=== PATIENT | female | born 1950 | race Caucasian/White ===

== ENCOUNTER 2017-08-27 11:04 | Outpatient (CLI) | payer MEDICARE, BC ==
--- NOTE | 2017-08-27 15:46 | CT ---
CT ANGIO ABDOMEN AND PELVIS AND BILATERAL LOWER EXTREMITIES: Date: 08/27/17 Multiple axial tomograms obtained through abdomen and pelvis and lower extremities in arterial phase enhancement with multiplanar reconstruction and 3D postprocessing. HISTORY: Peripheral arterial disease. Atherosclerosis of arteries with gangrene. Nonhealing wound left foot. FINDINGS: Abdominal aorta shows atherosclerotic calcification. No evidence of aneurysmal dilatation. No dissect ion. Calcified plaque at the origin of the celiac artery results in hemodynamically significant stenosis o f greater than 50% diameter as noted on the sagittal imaging. Atherosclerotic calcification at the origin of the superior mesenteric artery is also seen. There is mild soft plaque proximally which does appear to result in moderate stenosis approaching 50% diameter . Main superior mesenteric artery trunk is patent. Aortic bifurcation is patent. There appear to be bilateral common iliac artery stents at the bifurcat ion which are patent. Right lower extremity: There is evidence of arterial stents in place involving the right internal and external iliacs. Both of these arteries are patent with no significant stenosis. Right common femoral and profunda femoral are patent. The right superficial femoral artery is patent with atherosclerotic calcification seen. No significant stenosis. There is trifurcation below the knee joint. Peroneal appears to occlude just above the ankle. Otherwi se, the anterior tibial and posterior tibial arteries are patent to the foot. I cannot confirm patenc y of the dorsal pedis. Left lower extremity: There are left internal and external artery stents in place. Extensive stent to the common femoral on the left. There is evidence of high grade stenosis and near occlusion at the proximal left common fe moral artery. The profunda femoral is patent. The superficial femoral on the left is patent with diffuse disease. M ild stenosis in the mid thigh. The left popliteal is patent. Left popliteal trifurcates below the knee. Peroneal occludes mid calf. Anterior tibial artery and pos terior tibial artery are patent to the foot. Dorsal pedis is patent proximally. Soft Tissues: Lung bases appear clear. Liver, spleen, and pancreas are unremarkable. Bowel loops unremarkable. Right kidney is absent. Left kidney is atrophic with minimal cortex and numerous small left renal cys tic lesions. Urinary bladder is not identified. There is history of ileostomy and hysterectomy. An anterior abdominal wall defect on the right is seen. This may be the site of a prior ostomy. There are numerous small bowel loops herniated through this defect into the subuctaneous tissues. There is a second anterior abdominal wall hernia to the left of midline in the lower abdomen. This ap pears to represent a functioning ostomy. There is diffuse radiopaque mesh-like material involving the anterior abdominal wall indicating prior abdominal wall repair. Numerous small bowel loops herniate into the subcutaneous tissues indicating a parastomal hernia. No evidence of obstruction or dilated small bowel loops. IMPRESSION: 1. Evidence of moderate stenosis in the proximal superior mesenteric artery. 2. Bilateral common iliac artery stents are patent. 3. High grade stenosis in the proximal left femoral artery which appears to be within a stent. There is near occlusion at this site. 4. Bilateral anterior abdominal wall hernias with ostomies as discussed above. POS: RENEA
== END 2017-08-27 11:05 | disposition home or self-care (01) ==
LOC: CT 11:04
PROVIDERS: ATTEND Thoracic Surgery (Cardiothoracic Vascular Surgery)
DX: I70.262 Atherosclerosis of native arteries of extremities with gangrene, left leg (principal); R01.2 Other cardiac sounds; K55.1 Chronic vascular disorders of intestine; K43.9 Ventral hernia without obstruction or gangrene; I36.1 Nonrheumatic tricuspid (valve) insufficiency; I34.0 Nonrheumatic mitral (valve) insufficiency; Z98.890 Other specified postprocedural states
CPT/HCPCS: 75635; 93306

== ENCOUNTER 2017-09-11 09:19 | Outpatient (CLI) | payer MEDICARE, BC | END 2017-09-11 09:20 | disposition home or self-care (01) | LOC: LABBT 09:19 | PROVIDERS: ATTEND Thoracic Surgery (Cardiothoracic Vascular Surgery) | DX: Z01.812 Encounter for preprocedural laboratory examination (principal); I70.262 Atherosclerosis of native arteries of extremities with gangrene, left leg | CPT/HCPCS: 36430; 80048; 85027; 86850; 86900; 86901; 93005; 93010 ==

== ENCOUNTER 2017-09-11 09:30 | Inpatient (IN) | payer MEDICARE, BC ==
[2017-09-11 09:43] VITALS: BMI 31.8
[2017-09-11 10:37] LABS: Hemoglobin 8.5 g/dL (12.0-16.0); Mean Corpuscular HGB CONC 31.8 g/dL (32.0-36.0); Mean Corpuscular Hemoglobin 31.6 pg (27.0-31.0); Mean Corpuscular Volume 99.4 fl (81.0-99.0); Mean Platelet Volume 6.4 fL (7.4-10.4); Platelet Count 310 thou/uL (130-400); RBC Distribution Width 12.7 % (11.5-14.5); Red Blood Cell (RBC) Count 2.68 mill/uL (4.20-5.40); White Blood Cell (WBC) Count 9.8 thou/uL (4.8-10.8)
[2017-09-11 10:57] LABS: Anion Gap 20 mmol/L (10-20); BUN (Urea Nitrogen) 29 mg/dL (9.8-20.1); Calc. Creatinine Clearance 0 mL/min (70-130); Calcium 8.6 mg/dL (7.8-10.44); Carbon Dioxide 32 mmol/L (23-31); Chloride 91 mmol/L (98-107); Estimated GFR-MDRD 8; Glucose 108 mg/dL (80-115); Potassium 3.5 mmol/L (3.5-5.1); Sodium 139 mmol/L (136-145)
[2017-09-12] MEDS ORDERED: Heparin 5,000 UNITS/ML VIAL ONE (06:36)
[2017-09-12] MEDS ORDERED: Protamine Sulfate 50 MG/5 ML VIAL ONE (06:36)
[2017-09-12] MEDS ORDERED: Fentanyl 250 MCG/5 ML VIAL ONE (07:25)
[2017-09-12] MEDS ORDERED: CEFAZOLIN/Water 2 GM/20 ML SYRINGE ONE (07:30)
[2017-09-12] MEDS ORDERED: Ondansetron HCl/PF 4 MG/2 ML Vial IVP PRN (09:28)
[2017-09-12] MEDS ORDERED: Promethazine HCl 25 MG/ML VIAL SLOW IVP PRN (09:28)
[2017-09-12] MEDS ORDERED: Promethazine HCl 25 MG/ML VIAL IM PRN (09:28)
--- NOTE | 2017-09-12 11:15 | OP ---
PREOPERATIVE DIAGNOSIS: Gangrene, left foot. POSTOPERATIVE DIAGNOSIS: Gangrene, left foot, secondary to severe peripheral artery disease. FINDINGS: The patient had complete occlusion of her proximal left common femoral artery and about 80 % stenosis of her left external iliac artery, more proximally just past the hypogastric artery takeof f. She had a relatively intact runoff distally with 3-vessel runoff. PROCEDURE: Open left common superficial profunda femoral exposure with angiography and ballooning le ft common femoral artery and left external iliac artery with a 6 mm balloon. CONTRAST: 36 mL FLUOROSCOPY: Four minutes and 48 seconds. PROCEDURE IN DETAIL: After adequate anesthesia had been obtained, the patient was prepped and draped after ultrasound had determined the location of the left common femoral artery. After exposing the common femoral artery was heavily calcified; however, superficial and profunda vessels were soft. Pa lpation of the vessels revealed no pulse. Dissection up under the inguinal ligament proximal to the circumflex humeral branches demonstrated heavily calcified vessel extending as far as the finger coul d reach and there was no site for clamping or occluding the vessel. A needle and wire were inserted into the superficial femoral artery and a 5-Burkinan dilator placed and sheath placed with the sheath b minesh entering the distal common femoral artery. Angiography demonstrated patent superficial and pro arnold and distal common femoral artery with occlusion of the common femoral artery proximally. A guille dewire was then manipulated and unable to cross through the stenosis, and the dilator and sheath were advanced into the iliac system. Repeat angiography demonstrated there was now some flow through the common femoral artery where the dilator and sheath have passed as well as delineating the external i liac artery stenosis more proximally. A 6-Burkinan marker sheath was then placed following which a 4 m m x 2 cm balloon was then inflated for 1 minute in the common femoral artery and the external iliac a rtery separately. There was much improved flow at this point, and a 6 x4 balloon was then used to in flate the common femoral artery extending into the proximal external iliac artery. This appeared to be a good size balloon. It was then removed and a 6 mm x 2 cm balloon was used to inflate the math and science instructor al iliac artery stenosis more proximally. Completion angiography showed much improved results in the common femoral with less than 20% stenosis. There was still some residual contrast dropout in the e xternal iliac artery, but it was much improved. Runoff of the leg was then obtained demonstrating a patent superficial femoral artery, popliteal artery, and proximal 3-vessel tibial runoff. Following this, a 6-0 Prolene suture was used to close the puncture site in the superficial femoral artery. Th ere were good pulsations in this vessel at that time. The wound was irrigated and closed in layers.
--- NOTE | 2017-09-12 12:35 | EKG ---
Test Reason : PREOP Blood Pressure : / mmHG Vent. Rate : 079 BPM Atrial Rate : 079 BPM P-R Int : 148 ms QRS Dur : 084 ms QT Int : 380 ms P-R-T Axes : 071 -05 066 degrees QTc Int : 435 ms Normal sinus rhythm Minimal voltage criteria for LVH, may be normal variant Borderline ECG When compared with ECG of 26-JAN-2010 10:38, No significant change was found Confirmed by DR. Nicole JACKSON ([id number]) on 09/12/2017 12:34:47 PM Referred By: CALI Confirmed By:DR. Nicole JACKSON
[2017-09-12] MEDS ORDERED: Ondansetron PF 4 MG/2 ML Vial IVP PRN (12:46)
[2017-09-12] MEDS ORDERED: hydrALAZINE 20 MG/ML VIAL SLOW IVP PRN (12:46)
[2017-09-12] MEDS ORDERED: HYDROcodone/Acetaminophen 5/325 mg Tablet PO PRN (12:46)
[2017-09-12] MEDS ORDERED: Clopidogrel Bisulfate 75 MG TAB PO SCH (13:00)
[2017-09-12] MEDS: Fentanyl 100 MCG/2 ML VIAL SLOW IVP PRN ×4 (13:15→23:13)
[2017-09-12] MEDS: HYDROcodone/Acetaminophen 5/325 mg Tablet PO PRN ×3 (13:55→22:06)
[2017-09-12] MEDS ORDERED: ePHEDrine/0.9% NaCl/PF SYRINGE 50 mg/10 ml ONE (15:49)
[2017-09-12] MEDS ORDERED: PROPOFOL 200 MG/20 ML VIAL ONE (15:49)
[2017-09-12] MEDS ORDERED: Heparin 10,000 UNITS/ 10 ML VIAL ONE (15:49)
[2017-09-12] MEDS ORDERED: Glycopyrrolate 0.2 MG/ML 5 ML SYRINGE ONE (15:49)
[2017-09-12] MEDS ORDERED: PHENYLEPHRINE-NS 100 MCG/ML 10 ML SYRINGE ONE (15:49)
[2017-09-12] MEDS: Ibuprofen 200 MG TAB PO PRN (17:49)
[2017-09-12 19:27] LABS: Anion Gap 21 mmol/L (10-20); BUN (Urea Nitrogen) 46 mg/dL (9.8-20.1); Calc. Creatinine Clearance 9 mL/min (70-130); Calcium 9.4 mg/dL (7.8-10.44); Carbon Dioxide 26 mmol/L (23-31); Chloride 90 mmol/L (98-107); Estimated GFR-MDRD 5; Glucose 98 mg/dL (80-115); Potassium 3.8 mmol/L (3.5-5.1); Sodium 133 mmol/L (136-145)
[2017-09-12] MEDS: Simvastatin 20 MG TAB PO SCH ×2 (19:46→20:44)
--- NOTE | 2017-09-12 23:53 | CON ---
DATE OF ENCOUNTER: 09/12/2017 REFERRING PHYSICIAN: Dr. Houston Mancini. CHIEF COMPLAINT: Vulvar necrotic wound. HISTORY OF PRESENT ILLNESS: Patient is a 67-year-old female who was admitted today after a scheduled vascular procedure for an obstructed or stenosed left common femoral artery and heavily calcified il iac vessels. During the procedure, patient was noted to have a necrotic right labial wound and OB/GY N was consulted for assistance in management. Patient has a history of recurrent cervical cancer fol lowed by a pelvic exenteration with an ileal conduit and end colostomy. Past medical history is also complicated by end-stage renal disease on dialysis and peripheral vascular disease. Patient reports that she is not very ambulatory and resides sitting much of the time. She does report she has some pain in her pelvic area, but does not know how long she has had the sore. PAST MEDICAL HISTORY: End-stage renal disease, ischemic left foot, hypothyroidism. Patient is on di alysis on Tuesdays, , and Saturdays. PAST SURGICAL HISTORY: Hysterectomy in 1987, kidney removed in 2001, pelvic exenteration for recurre nt cervical cancer with an end colostomy and ileal conduit. SOCIAL HISTORY: Patient denies tobacco, drug, or alcohol use. ALLERGIES: SULFA DRUGS. REVIEW OF SYSTEMS: Patient reports she was having quite a bit of pain in her left leg after the proc edure. Patient denies shortness of breath at rest. Denies chest pain. Denies abdominal pain. PHYSICAL EXAMINATION: VITAL SIGNS: Temperature 98.3, pulse of 82, respiratory rate of 16, satting 100% on 2 liters oxygen. GENERAL: She appears uncomfortable and in some distress from the pain in her leg. She is alert and oriented, and cooperative and pleasant to interact with, her right labia is denuded with the mid port ion necrotic, difficult to evaluate due to the patient's position and uncomfortable state. LABORATORY DATA: Patient had a BMP with calcium today showing a sodium of 133, potassium of 3.8, glu cose of 98, calcium 9.4. Her BUN is 46 and creatinine is 7.5. ASSESSMENT AND PLAN: Patient is a 67-year-old female with a history of recurrent cervical cancer, st atus post pelvic exenteration and radiation. She had ileal conduit and colostomy. She now has signi ficant peripheral vascular disease and underwent procedure today with Dr. Mancini to improve flow in th e left common femoral artery system. This necrotic wound needs to be debrided and will be taking the patient to the OR for conscious sedation and debridement and appears to be superficial on exam. Angela wadsworth has been involved today for evaluation and will remain in the primary project engineering manager for this wound. While in the OR, we will be sampling the tissue for pathology review. I suspect this is a complica tion due to her history of radiation and her vascular disease.
[2017-09-13] MEDS: HYDROcodone/Acetaminophen 5/325 mg Tablet PO PRN ×3 (03:10→20:50)
[2017-09-13] MEDS: Fentanyl 100 MCG/2 ML VIAL SLOW IVP PRN ×5 (06:50→19:43)
[2017-09-13] MEDS ORDERED: Clopidogrel Bisulfate 75 MG TAB PO SCH (09:00)
[2017-09-13] MEDS ORDERED: Fentanyl 100 MCG/2 ML VIAL ONE (10:00)
[2017-09-13] MEDS ORDERED: Bupivacaine 0.25% HCL 30 ML VIAL ONE (10:22)
[2017-09-13 10:41] LABS: #Eosinphils 0.2 thou/uL (0.0-0.7); #Lymphocytes 1.3 thou/uL (1.20-3.40); #Monocytes 0.7 thou/uL (0.11-0.59); #Neutrophils 11.3 thou/uL (1.40-6.50); %Basophils 0.1 % (0.0-1.0); %Eosinophils 1.7 % (0.0-10.0); %Lymphocytes 9.5 % (21.0-51.0); %Monocytes 4.8 % (0.0-10.0); %Neutrophils 83.8 % (42.0-75.0); Hemoglobin 6.7 g/dL (12.0-16.0); Mean Corpuscular HGB CONC 32.4 g/dL (32.0-36.0); Mean Corpuscular Hemoglobin 33.1 pg (27.0-31.0); Mean Platelet Volume 6.1 fL (7.4-10.4); Platelet Count 288 thou/uL (130-400); RBC Distribution Width 12.9 % (11.5-14.5); Red Blood Cell (RBC) Count 2.02 mill/uL (4.20-5.40); White Blood Cell (WBC) Count 13.5 thou/uL (4.8-10.8)
--- NOTE | 2017-09-13 10:50 | PRG ---
DATE OF SERVICE: 09/13/2017 SUBJECTIVE: The patient's pain control is much better than last night. She remembers discussing varinder Phan the proposed procedure of debridements of necrotic labia yesterday. OBJECTIVE: VITAL SIGNS: Temperature 98.1, pulse 76, respiratory rate 16, blood pressure 120/50. GENERAL: Nontoxic appearing elderly female, in no acute distress. RESPIRATIONS: Unlabored. LABORATORY AND STUDIES: The only lab this admission is a basic metabolic panel, which shows a mild h yponatremia with sodium of 133, chloride slightly low at 90, BUN 46, creatinine 7.48. CBC will be or dered. ASSESSMENT AND PLAN: A 67-year-old female who is status post a pelvic exenteration for cervical canc er approximately 30 years ago, presented for a stenosed left come femoral artery and at that time was noted to having a necrotic right labia. After the patient left the operating room, CEO & FOUNDER was consu lted. Dr. Phan saw the patient and did an initial consultation, but was unable to do an exam due to the patient's level of pain. Exam was deferred to exam under anesthesia today and with debridemen t as indicated followed by wound care. Risks, benefits, and alternative of the procedure were review ed with the patient and question answered to her and her daughter with satisfaction. We will plan fo r exam under anesthesia and debridement of right labia as indicated with wound care to follow. The p atient received Ancef 2 grams and call to the OR.
[2017-09-13 10:56] LABS: Hemoglobin A1c 5.3 % (4.0-6.0)
[2017-09-13] MEDS ORDERED: Promethazine HCl 25 MG/ML VIAL SLOW IVP PRN (11:13)
[2017-09-13] MEDS ORDERED: Ondansetron HCl/PF 4 MG/2 ML Vial IVP PRN (11:13)
[2017-09-13] MEDS ORDERED: Promethazine HCl 25 MG/ML VIAL IM PRN (11:13)
[2017-09-13] MEDS ORDERED: Morphine Sulfate 2 MG/ML SYRINGE SLOW IVP PRN (11:13)
[2017-09-13] MEDS ORDERED: PROPOFOL 200 MG/20 ML VIAL ONE (13:22)
[2017-09-13] MEDS ORDERED: Ondansetron PF 4 MG/2 ML Vial ONE (13:22)
[2017-09-13] MEDS ORDERED: PHENYLEPHRINE-NS 100 MCG/ML 10 ML SYRINGE ONE (13:22)
[2017-09-13] MEDS ORDERED: Lidocaine 1% PF 5 ML VIAL ONE (13:22)
[2017-09-13] MEDS ORDERED: Epoetin (ESRD) 10,000 UNITS/ML VIAL IVP SCH (15:43)
[2017-09-13] MEDS: Simvastatin 20 MG TAB PO SCH (19:44)
--- NOTE | 2017-09-13 22:22 | CON ---
DATE OF CONSULTATION: 09/13/2017 SERVICE: Renal Medicine. HISTORY OF PRESENT ILLNESS: Ms. Castro is a 67-year-old white female with known history of ESRD se condary to chronic interstitial nephritis, on maintenance hemodialysis and initially admitted due to leg pain and nonhealing left foot ulceration. The patient recently underwent an open left common sup erficial profunda femoral exposure with angiography and ballooning of the left common femoral artery and left external iliac artery. The patient was also seen by Dr. Phan due to a vulvar necrotic wound. His recommendation is debri diane of this necrotic wound. We are being consulted for her maintenance hemodialysis. She is [facility] for [facility]. We are doing hemodialysis for 3 hours without any heparin. REVIEW OF SYSTEMS: Positive for chronic left foot pain. No nausea, no vomiting, no abdominal pain. Appetite and energy level is fair. No diarrhea, no constipation, no productive cough, no fever or c hills, no syncopal episode, no abdominal pain. MEDICATIONS: Bergen 5/325 q.4 hours p.r.n., DuoNeb q.6 hours p.r.n., Plavix 75 mg once a day, aspirin 81 mg tab once a day, hydralazine 10 mg IV q.4 hours p.r.n., fentanyl IV as needed, ibuprofen 400 mg q.6 hours p.r.n., Zocor 20 mg tab at bedtime. PAST MEDICAL HISTORY: 1. ESRD secondary to chronic interstitial nephritis. 2. Hyperlipidemia. 3. History of cervical/ovarian cancer - in remission. 4. COPD. PAST SURGICAL HISTORY: Status post right nephrectomy for obstructed uropathy, status post radiation of her cervical cancer, status post hysterectomy, status post pelvic exenteration of her ovarian canc er, status post colostomy placement, status post bladder resection with ileal conduit and recently st atus post leg surgery with angioplasty of the femoral artery. SOCIAL HISTORY: The patient lives in [place]. She is and lives with her child. No history o f smoking or alcohol intake. Status post blood transfusion. No IV drug abuse. Used to work as a cu stomer service with [employer] Education: High school. FAMILY HISTORY: No family history of ESRD. ALLERGIES: SULFA. TRAUMA: None. IMMUNIZATIONS: Up to date. HOSPITALIZATIONS: Please see past medical history. PHYSICAL EXAMINATION: VITAL SIGNS: Blood pressure is 134/62, heart rate 95, respiratory rate 18, temperature 98.4, pulse o x 95%. GENERAL: Awake, alert, supine, obese, not in distress. SKIN: Adequate turgor. HEENT: Slightly pale conjunctivae, anicteric sclerae. NECK: No neck mass, no carotid bruits, no JVD. CHEST: No deformities. LUNGS: Clear breath sounds. HEART: Normal sinus rhythm. No murmur, no gallops, no rubs. ABDOMEN: Globular, soft, nontender, no masses. EXTREMITIES: No edema, no deformities. Positive for left foot dressing. NEUROLOGIC: Awake, oriented in 3 spheres. Moving all extremities. No tremors or asterixis. LABORATORY DATA: Laboratories of 09/13/2017, white count 13.5, hemoglobin 6.7, sodium 133, potassium 3.8, chloride 90, carbon dioxide 26, BUN is 46, creatinine is 7.48, calcium 9.4. ASSESSMENT AND PLAN: 1. Anemia - start Epogen 10,000 units subcu q. week. In addition, we will give 2 units of packed RB C with dialysis. 2. End-stage renal disease. Continuing Sunday, and Sunday hemodialysis regimen. No hep stevie use due to the recent surgery. 3. Peripheral vascular disease. The patient recently underwent a left common superficial profunda f emoral exposure with angiography and angioplasty of the left common femoral artery as well as the lef t external iliac artery surgery is following. I agree with current management.
[2017-09-14] MEDS: HYDROcodone/Acetaminophen 5/325 mg Tablet PO PRN ×2 (06:44→17:12)
[2017-09-14 10:02] LABS: #Eosinphils 0.1 thou/uL (0.0-0.7); #Lymphocytes 1.6 thou/uL (1.20-3.40); #Neutrophils 14.3 thou/uL (1.40-6.50); %Basophils 0.1 % (0.0-1.0); %Eosinophils 0.8 % (0.0-10.0); %Lymphocytes 9.5 % (21.0-51.0); %Neutrophils 83.6 % (42.0-75.0); Hemoglobin 8.8 g/dL (12.0-16.0); Mean Corpuscular HGB CONC 32.2 g/dL (32.0-36.0); Mean Corpuscular Hemoglobin 31.4 pg (27.0-31.0); Mean Corpuscular Volume 97.5 fl (81.0-99.0); Mean Platelet Volume 6.4 fL (7.4-10.4); Platelet Count 262 thou/uL (130-400); RBC Distribution Width 15.7 % (11.5-14.5); Red Blood Cell (RBC) Count 2.81 mill/uL (4.20-5.40); White Blood Cell (WBC) Count 17.2 thou/uL (4.8-10.8)
[2017-09-14] MEDS: Fentanyl 100 MCG/2 ML VIAL SLOW IVP PRN ×2 (10:19→16:42)
[2017-09-14] MEDS ORDERED: Fentanyl 100 MCG/2 ML VIAL ONE ×4 (12:39→15:34)
[2017-09-14] MEDS ORDERED: Midazolam HCl 2 mg/2 ml Vial ONE (12:39)
[2017-09-14] MEDS ORDERED: Ondansetron HCl/PF 4 MG/2 ML Vial IVP PRN (14:18)
[2017-09-14] MEDS ORDERED: Promethazine HCl 25 MG/ML VIAL SLOW IVP PRN (14:18)
[2017-09-14] MEDS ORDERED: HYDROmorphone 2 MG/ML VIAL SLOW IVP PRN (14:18)
[2017-09-14] MEDS ORDERED: Promethazine HCl 25 MG/ML VIAL IM PRN ×2 (14:18→17:31)
--- NOTE | 2017-09-14 15:10 | OP ---
PREOPERATIVE DIAGNOSIS: Gangrene, left foot. POSTOPERATIVE DIAGNOSIS: Gangrene, left foot. PROCEDURE: Left [id number] amputation. SURGEON: Houston Mancini M.D. ANESTHESIA: General. ESTIMATED BLOOD LOSS: Less than 200. PROCEDURE IN DETAIL: After prepping and draping, skin was marked for a posterior flap. Incision was made then circumferentially following the skin marker lines. Tibia was divided with Gigli saw and t he fibula was divided with the rib rico. Amputation knife was used to complete the amputation. He mostasis was then obtained using silk ligatures on heavily calcified tibial arteries which were paten t. Following irrigation, Vicryl sutures were used to secure the muscle flaps over the tibia and then subcutaneous tissue and skin were closed. The patient is to be taken to the recovery room in guarde d condition.
[2017-09-14] MEDS ORDERED: Lidocaine 1% PF 5 ML VIAL ONE (16:44)
[2017-09-14] MEDS ORDERED: Glycopyrrolate 0.2 MG/ML 5 ML SYRINGE ONE (16:44)
[2017-09-14] MEDS ORDERED: PROPOFOL 200 MG/20 ML VIAL ONE (16:44)
[2017-09-14] MEDS ORDERED: PHENYLEPHRINE-NS 100 MCG/ML 10 ML SYRINGE ONE (16:44)
[2017-09-14] MEDS ORDERED: Succinylcholine Chloride 20 MG/ML 10 ml SYRINGE FS ONE (16:44)
[2017-09-14] MEDS ORDERED: diphenhydrAMINE 25 MG CAP PO PRN (17:31)
[2017-09-14] MEDS ORDERED: Zolpidem Tartrate 5 MG TAB PO PRN (17:31)
[2017-09-14] MEDS ORDERED: Ondansetron PF 4 MG/2 ML Vial IVP PRN (17:31)
[2017-09-14] MEDS ORDERED: diphenhydrAMINE 50 MG/ML VIAL IVP PRN (17:31)
[2017-09-14] MEDS ORDERED: Fentanyl 5000 MCG/250 ML CADD IVPB PRN (17:31)
[2017-09-14] MEDS ORDERED: diphenhydrAMINE 50 MG/ML VIAL IM PRN (17:31)
[2017-09-14] MEDS ORDERED: Naloxone HCl 0.4 mg/ml Vial IV PRN (17:31)
[2017-09-14] MEDS ORDERED: Communication Order-Pharmacy FS SCH (17:45)
[2017-09-14] MEDS: fentaNYL Citrate/PF 2,000 MCG in Sodium Chloride 0.9% 60 ML IV PRN (18:33)
[2017-09-14] MEDS: Simvastatin 20 MG TAB PO SCH (22:19)
[2017-09-14] MEDS: Heparin 5,000 UNITS/ML VIAL SC SCH (22:19)
--- NOTE | 2017-09-15 00:51 | OP ---
DATE OF SERVICE: 09/13/2017 PREOPERATIVE DIAGNOSES: Necrotic left labia. POSTOPERATIVE DIAGNOSES: Necrotic left labia. ANESTHESIA: General. ATTENDING: Dr. Zenia Boswell PROCEDURE: Local excision of necrotic tissue. FINDINGS: Approximately 3 cm area of necrosis and induration of the left labia with a wider area inv olving some sloughing and induration of the labia. ESTIMATED BLOOD LOSS: 25 mL IV FLUIDS: Replacement. URINE OUTPUT: Not measured. MEDICATIONS: Ancef at the start of case. DRAINS: None. COUNTS: Correct. COMPLICATIONS: None immediate. DISPOSITION: Stable to PACU. DETAILED OPERATIVE NOTE: Risks, benefits, and alternatives of the procedure were reviewed with the tate pollard and her daughter and questions were answered to her satisfaction. The patient was taken to [facility] operating room where anesthesia was administered. She was placed in lithotomy position and prepped and draped in the usual sterile fashion. Using a #10 bladed scalpel, excision of the necrotic area with approximately 1 cm margin on either side and an elliptical shape was affected. There was noted to be good vascularity of the cut edge. The specimen was handed off the field. Using 4-0 chromic on an SH and light electrocautery, hemostasis was obtained. The operative site was dressed with moist lap, and applied. Wound care has been consulted for management as an outpatient and notified that wo und VAC would be appropriate.
[2017-09-15 05:09] LABS: #Eosinphils 0.3 thou/uL (0.0-0.7); #Lymphocytes 1.7 thou/uL (1.20-3.40); #Monocytes 0.8 thou/uL (0.11-0.59); #Neutrophils 10.9 thou/uL (1.40-6.50); %Basophils 0.1 % (0.0-1.0); %Eosinophils 2.1 % (0.0-10.0); %Lymphocytes 12.4 % (21.0-51.0); %Monocytes 5.6 % (0.0-10.0); %Neutrophils 79.8 % (42.0-75.0); Hemoglobin 8.3 g/dL (12.0-16.0); Mean Corpuscular HGB CONC 30.6 g/dL (32.0-36.0); Mean Corpuscular Hemoglobin 29.9 pg (27.0-31.0); Mean Corpuscular Volume 97.5 fl (81.0-99.0); Mean Platelet Volume 6.6 fL (7.4-10.4); Platelet Count 234 thou/uL (130-400); RBC Distribution Width 15.2 % (11.5-14.5); Red Blood Cell (RBC) Count 2.77 mill/uL (4.20-5.40); White Blood Cell (WBC) Count 13.6 thou/uL (4.8-10.8)
[2017-09-15 05:26] LABS: Anion Gap 17 mmol/L (10-20); BUN (Urea Nitrogen) 27 mg/dL (9.8-20.1); Calc. Creatinine Clearance 11 mL/min (70-130); Calcium 9.5 mg/dL (7.8-10.44); Carbon Dioxide 30 mmol/L (23-31); Chloride 91 mmol/L (98-107); Estimated GFR-MDRD 7; Glucose 99 mg/dL (80-115); Potassium 4.1 mmol/L (3.5-5.1); Sodium 134 mmol/L (136-145)
[2017-09-15] MEDS: Ibuprofen 200 MG TAB PO PRN (13:32)
[2017-09-15] MEDS: Heparin 5,000 UNITS/ML VIAL SC SCH ×2 (13:32→21:17)
[2017-09-15] MEDS: Gabapentin 100 MG CAP PO SCH ×2 (13:32→21:17)
--- NOTE | 2017-09-15 18:29 | PRG ---
DATE OF SERVICE: 09/15/2017 SUBJECTIVE: Ms. Castro is a 67-year-old white female with ESRD and being followed by the renal ser vice for maintenance hemodialysis. She is currently undergoing hemodialysis, her mother at bedside. She is tolerating said treatment. Yesterday, she underwent a left BKA and excision of a necrotic le ft labia by Dr. Boswell, Renal Medicine. Currently, no new complaints. No chest pain or shortness o f breath. OBJECTIVE: VITAL SIGNS: Blood pressure is 185/67, heart rate 73, respiratory rate 16, temperature 98.2, and pul se ox 96%. GENERAL: Awake, alert, comfortable, not in distress, obese. SKIN: Adequate turgor. HEENT: Slightly pale conjunctivae, anicteric sclerae. NECK: No neck mass, no carotid bruits. No JVD. CHEST: No deformities. LUNGS: Clear breath sounds. HEART: Normal sinus rhythm. No murmur, no gallops, no rubs. ABDOMEN: Globular, Soft. EXTREMITIES: No edema, no deformities. Status post left BKA. MEDICATIONS: 09/15/2017 was reviewed. LABORATORY DATA: 09/15/2017 - white count 13.6, hemoglobin 8.3. Sodium 134, potassium 4.1, chloride 91, carbon dioxide 30, BUN 27, creatinine 6.13, glucose 99, and calcium 9.5. ASSESSMENT AND PLAN: 1. End-stage renal disease, tolerating current hemodialysis regimen. I am at the bedside, supervisi ng her dialysis, using no heparin due to the recent surgery. We will do a 4-hour dialysis regimen. 2. status post excision. 3. Peripheral vascular disease/nonhealing left foot - status post left below knee amputation. 4. Anemia. Continue weekly Epogen, p.r.n. blood transfusion. We will recheck basic metabolic panel and CBC in the morning.
[2017-09-15] MEDS: Simvastatin 20 MG TAB PO SCH (21:17)
--- NOTE | 2017-09-16 07:18 | PDOC.EVN ---
Event Note - Event Note Event Note: LEARNING AND DEVELOPMENT MANAGER Pathology (vulvar BX) follow up: Path report: Tissue with necrotic tissue, no malignancy identiidified. Continued care by primary surgical team. LEARNING AND DEVELOPMENT MANAGER sign off.
[2017-09-16 08:59] LABS: #Eosinphils 0.2 thou/uL (0.0-0.7); #Lymphocytes 1.1 thou/uL (1.20-3.40); #Monocytes 0.9 thou/uL (0.11-0.59); #Neutrophils 10.5 thou/uL (1.40-6.50); %Basophils 0.1 % (0.0-1.0); %Eosinophils 1.6 % (0.0-10.0); %Lymphocytes 8.5 % (21.0-51.0); %Monocytes 6.7 % (0.0-10.0); %Neutrophils 83.1 % (42.0-75.0); Hemoglobin 8.9 g/dL (12.0-16.0); Mean Corpuscular HGB CONC 31.2 g/dL (32.0-36.0); Mean Corpuscular Volume 99.3 fl (81.0-99.0); Mean Platelet Volume 6.4 fL (7.4-10.4); Platelet Count 279 thou/uL (130-400); RBC Distribution Width 14.8 % (11.5-14.5); Red Blood Cell (RBC) Count 2.86 mill/uL (4.20-5.40); White Blood Cell (WBC) Count 12.7 thou/uL (4.8-10.8)
[2017-09-16] MEDS: Gabapentin 100 MG CAP PO SCH ×3 (09:06→21:11)
[2017-09-16] MEDS: Heparin 5,000 UNITS/ML VIAL SC SCH ×2 (09:06→21:11)
[2017-09-16 10:12] LABS: Calcium 9.6 mg/dL (7.8-10.44); Chloride 96 mmol/L (98-107); Potassium 4.6 mmol/L (3.5-5.1); Sodium 134 mmol/L (136-145)
[2017-09-16 10:13] LABS: Glucose 147 mg/dL (80-115)
[2017-09-16 10:14] LABS: Anion Gap 19 mmol/L (10-20); Carbon Dioxide 24 mmol/L (23-31)
[2017-09-16 10:16] LABS: Calc. Creatinine Clearance 14 mL/min (70-130); Estimated GFR-MDRD 9
[2017-09-16 10:17] LABS: BUN (Urea Nitrogen) 23 mg/dL (9.8-20.1)
[2017-09-16] MEDS: Acetaminophen 325 MG TAB PO PRN (21:11)
[2017-09-16] MEDS: Simvastatin 20 MG TAB PO SCH (21:11)
[2017-09-17] MEDS: Gabapentin 100 MG CAP PO SCH ×3 (08:50→21:12)
[2017-09-17] MEDS: Ibuprofen 200 MG TAB PO PRN ×2 (08:50→23:30)
[2017-09-17] MEDS: Heparin 5,000 UNITS/ML VIAL SC SCH ×2 (08:50→21:14)
[2017-09-17] MEDS ORDERED: Epoetin (ESRD) 20,000 UNITS/ML SC SCH (10:30)
--- NOTE | 2017-09-17 10:37 | PRG ---
DATE OF SERVICE: 09/17/2017 RENAL MEDICINE SUBJECTIVE: Ms. Castro is a 67-year-old white female with ESRD and was admitted due to left nonhea ling wound. She has also vulvar ulceration. She has undergone left BKA as well as excision of the v ulvar lesion. She was also noted to be anemic one time with association of blood transfusion. She c ontinues to be maintained on her weekly Epogen at 10,000 units subcutaneously. No new complaints today. Her postop pain is much improved. We are awaiting rehab consultation. The patient voices no complaints of chest pain, shortness of breath. PHYSICAL EXAMINATION: VITAL SIGNS: Blood pressure is 148/69, heart rate 74, respiratory rate 18, temperature 98.7. GENERAL: Awake, alert, comfortable, not in distress. SKIN: Adequate turgor. HEENT: Slightly pale conjunctivae, anicteric sclerae. NECK: No neck mass, no carotid bruits, no JVD. CHEST: No deformities. LUNGS: Clear breath sounds. No wheezing, no crackles. HEART: Normal sinus rhythm. No murmur, no gallops, no rubs. ABDOMEN: Globular, soft, nontender. No masses. EXTREMITIES: Status post left BKA. MEDICATIONS: Medications of 09/17/2017 was reviewed. LABORATORY DATA: Laboratories of 09/16/2017; white count 12.7, hemoglobin 8.9, sodium 134, potassium 4.6, chloride 96, carbon dioxide 24, BUN 23, creatinine 4.78, glucose 147. ASSESSMENT AND PLAN: 1. Peripheral vascular disease - left nonhealing foot ulcer - status post left BKA. Surgery is foll owing, doing well. 2. Anemia - continue weekly Epogen. There will be a change in dosing of Epogen to 10,000 units subc utaneously every week starting today. 3. End-stage renal disease, stable. There is no indication for any emergent dialytic intervention w ith this patient. We will be rechecking a basic met tomorrow. Please note patient is noted to be eu volemic. 4. Recheck basic met and CBC in a.m.
[2017-09-17] MEDS ORDERED: Mag-Al 1200 mg/1200 mg/30 ML UDCUP PO PRN (20:08)
[2017-09-17] MEDS ORDERED: Calcium Carbonate 500 MG ChewTAB PO PRN (20:08)
[2017-09-17] MEDS ORDERED: Calcium Carbonate 500 MG ChewTAB PO SCH (20:15)
[2017-09-17] MEDS: Famotidine 20 MG TAB PO SCH (21:12)
[2017-09-17] MEDS: Simvastatin 20 MG TAB PO SCH (21:12)
[2017-09-17] MEDS: HYDROcodone/Acetaminophen 5/325 mg Tablet PO PRN (21:13)
[2017-09-18 05:50] LABS: #Eosinphils 0.4 thou/uL (0.0-0.7); #Lymphocytes 1.4 thou/uL (1.20-3.40); #Monocytes 0.9 thou/uL (0.11-0.59); #Neutrophils 12.2 thou/uL (1.40-6.50); %Basophils 0.2 % (0.0-1.0); %Eosinophils 2.4 % (0.0-10.0); %Lymphocytes 9.5 % (21.0-51.0); %Monocytes 6.2 % (0.0-10.0); %Neutrophils 81.7 % (42.0-75.0); Hemoglobin 7.6 g/dL (12.0-16.0); Mean Corpuscular HGB CONC 31.8 g/dL (32.0-36.0); Mean Corpuscular Hemoglobin 31.3 pg (27.0-31.0); Mean Corpuscular Volume 98.2 fl (81.0-99.0); Mean Platelet Volume 6.7 fL (7.4-10.4); Platelet Count 282 thou/uL (130-400); RBC Distribution Width 14.2 % (11.5-14.5); Red Blood Cell (RBC) Count 2.44 mill/uL (4.20-5.40)
[2017-09-18 05:58] LABS: Anion Gap 12 mmol/L (10-20); BUN (Urea Nitrogen) 43 mg/dL (9.8-20.1); Calc. Creatinine Clearance 10 mL/min (70-130); Calcium 9.2 mg/dL (7.8-10.44); Carbon Dioxide 26 mmol/L (23-31); Chloride 93 mmol/L (98-107); Estimated GFR-MDRD 6; Glucose 106 mg/dL (80-115); Potassium 4.2 mmol/L (3.5-5.1); Sodium 127 mmol/L (136-145)
--- NOTE | 2017-09-18 09:08 | PRG ---
DATE OF SERVICE: 09/18/2017 RENAL MEDICINE SUBJECTIVE: Ms. Castro is a 67-year-old white female, being followed by the Renal Service for her maintenance hemodialysis. She underwent a left BKA and vulvar excision of a necrotic lesion. Micky pinto, she is at the dialysis. I am at her bedside supervising her dialysis. She is tolerating the sa id treatment. She voices no new complaints. She denies any chest pain or shortness of breath. OBJECTIVE: VITAL SIGNS: Blood pressure 155/74, heart rate 71, respiratory rate 14, temperature 97.7, pulse ox 9 2%. GENERAL EXAM: Noted to be awake, alert, supine, comfortable, not in distress. SKIN: Adequate turgor. HEENT: Slightly pale conjunctivae. Anicteric sclerae. NECK: No neck mass, no carotid bruits, no JVD. CHEST: No deformities. LUNGS: Decreased breath sounds. HEART: Normal sinus rhythm. No murmur, no gallops, and no rubs. ABDOMEN: Globular, soft, nontender, no masses. EXTREMITIES: No edema, status post left BKA. MEDICATIONS: Medication of 09/18/2017 was reviewed. LABORATORY DATA: Laboratories of 09/18/2017, white count 15, hemoglobin 7.6; sodium 127, potassium 4 .2, chloride 93, carbon dioxide 26, BUN 43, creatinine 6.87, glucose 106, calcium 9.2. ASSESSMENT AND PLAN: 1. Mild hyponatremia - most likely dilutional. We will correct this with dialysis. 2. End-stage renal disease, stable. We will continue heparin-free hemodialysis. We will do a 4-angela r hemodialysis today with fluid removal as tolerated. 3. Anemia, continuing weekly Epogen. P.r.n. blood transfusion. 4. Peripheral vascular disease. The patient is status post left below knee amputation. We are curr ently awaiting rehab placement. 5. Recheck basic metabolic panel and CBC in a.m.
[2017-09-18] MEDS: Famotidine 20 MG TAB PO SCH ×2 (15:03→22:53)
[2017-09-18] MEDS: Gabapentin 100 MG CAP PO SCH ×3 (15:03→22:53)
[2017-09-18] MEDS: Heparin 5,000 UNITS/ML VIAL SC SCH ×2 (15:03→22:53)
[2017-09-18] MEDS: HYDROcodone/Acetaminophen 5/325 mg Tablet PO PRN (17:38)
[2017-09-18] MEDS: Simvastatin 20 MG TAB PO SCH (22:53)
[2017-09-19] MEDS: Gabapentin 100 MG CAP PO SCH ×4 (01:32→21:03)
[2017-09-19] MEDS: Famotidine 20 MG TAB PO SCH ×3 (01:33→21:03)
[2017-09-19] MEDS: Simvastatin 20 MG TAB PO SCH ×2 (01:33→21:03)
[2017-09-19 06:31] LABS: #Eosinphils 0.2 thou/uL (0.0-0.7); #Lymphocytes 1.1 thou/uL (1.20-3.40); #Monocytes 1.3 thou/uL (0.11-0.59); #Neutrophils 16.4 thou/uL (1.40-6.50); %Basophils 0.2 % (0.0-1.0); %Eosinophils 0.9 % (0.0-10.0); %Lymphocytes 5.7 % (21.0-51.0); %Monocytes 6.9 % (0.0-10.0); %Neutrophils 86.3 % (42.0-75.0); Hemoglobin 7.5 g/dL (12.0-16.0); Mean Corpuscular Hemoglobin 31.3 pg (27.0-31.0); Mean Corpuscular Volume 97.9 fl (81.0-99.0); Mean Platelet Volume 6.6 fL (7.4-10.4); Platelet Count 363 thou/uL (130-400); RBC Distribution Width 14.2 % (11.5-14.5); Red Blood Cell (RBC) Count 2.41 mill/uL (4.20-5.40)
[2017-09-19 06:42] LABS: Anion Gap 14 mmol/L (10-20); BUN (Urea Nitrogen) 27 mg/dL (9.8-20.1); Calc. Creatinine Clearance 13 mL/min (70-130); Calcium 9.5 mg/dL (7.8-10.44); Carbon Dioxide 27 mmol/L (23-31); Chloride 94 mmol/L (98-107); Estimated GFR-MDRD 8; Glucose 100 mg/dL (80-115); Potassium 4.3 mmol/L (3.5-5.1); Sodium 131 mmol/L (136-145)
--- NOTE | 2017-09-19 09:38 | PRG ---
DATE OF SERVICE: 09/19/2017 SUBJECTIVE: The patient has no new complaints today. She underwent hemodialysis yesterday without d ifficulty. She voices no complaints of chest pain or shortness of breath. The patient also has been evaluated by Rehab for a possible transfer to rehab. PHYSICAL EXAMINATION: VITAL SIGNS: Blood pressure is 149/61, heart rate 83, respiratory rate 18, temperature 99.8, pulse o x 95%. GENERAL: Awake, alert, supine, comfortable, obese, not in distress. SKIN: Adequate turgor. HEENT: Slightly pale conjunctivae, anicteric sclerae. NECK: No neck mass, no carotid bruits. No JVD. CHEST: No deformities. LUNGS: Clear breath sounds. No wheezing, no crackles. HEART: Normal sinus rhythm. No murmur, no gallops or rubs. ABDOMEN: Globular, soft, nontender. Positive for ostomies. EXTREMITIES: Right leg, no edema, status post left BKA. MEDICATIONS: 09/19/2017 - Reviewed. LABORATORY: 09/19/2017 - White count 19, hemoglobin 7.5. Sodium 131, potassium 4.3, chloride 94, ca rbon dioxide 27, BUN 27, creatinine 5.17, glucose 100, calcium 9.5. ASSESSMENT AND PLAN: 1. End-stage renal disease, stable. Continuing 3 times a week hemodialysis of Sunday, , an d Sunday, again fluid removal only as tolerated. 2. Anemia. We will increase Epogen from 7500 units to 10,000 units subcutaneously every week. 3. Nonhealing left leg/foot wound - status post left pwmin-pgn-xjjb amputation, doing well, awaiting rehab evaluation. I agree with current management.
[2017-09-19] MEDS: Heparin 5,000 UNITS/ML VIAL SC SCH ×2 (10:04→21:03)
[2017-09-20 08:08] LABS: #Eosinphils 0.2 thou/uL (0.0-0.7); #Lymphocytes 1.4 thou/uL (1.20-3.40); #Monocytes 0.7 thou/uL (0.11-0.59); #Neutrophils 10.8 thou/uL (1.40-6.50); %Basophils 0.1 % (0.0-1.0); %Eosinophils 1.4 % (0.0-10.0); %Lymphocytes 10.3 % (21.0-51.0); %Monocytes 5.7 % (0.0-10.0); %Neutrophils 82.5 % (42.0-75.0); Hemoglobin 6.4 g/dL (12.0-16.0); Mean Corpuscular HGB CONC 31.9 g/dL (32.0-36.0); Mean Corpuscular Hemoglobin 31.1 pg (27.0-31.0); Mean Corpuscular Volume 97.6 fl (81.0-99.0); Mean Platelet Volume 6.7 fL (7.4-10.4); Platelet Count 340 thou/uL (130-400); Red Blood Cell (RBC) Count 2.05 mill/uL (4.20-5.40); White Blood Cell (WBC) Count 13.1 thou/uL (4.8-10.8)
--- NOTE | 2017-09-20 08:56 | PRG ---
DATE OF SERVICE: 09/20/2017 SUBJECTIVE: Ms. Castro is a 67-year-old white female with ESRD, recently underwent vulvar excision of necrotic tissue, status post left BKA and being followed by the Renal Service for her maintenance hemodialysis. The patient is undergoing hemodialysis today. No heparin is being used. Fluid remov al only as tolerated. No other complaints except for being tired. OBJECTIVE: VITAL SIGNS: Blood pressure 152/58, heart rate 83, respiratory rate 15, temperature 99.2, and pulse ox 93%. GENERAL: Noted to be awake, supine, comfortable, not in distress. SKIN: Adequate turgor. HEENT: Pale conjunctivae, anicteric sclerae. NECK: No neck mass, no carotid bruits, no JVD. CHEST: No deformities. LUNGS: Decreased breath sounds. HEART: Normal sinus rhythm. No murmur, no gallops, no rubs. ABDOMEN: Globular, soft, nontender. No masses. EXTREMITIES: No edema, status post left BKA. MEDICATIONS: Medications of 09/20/2017 was reviewed. LABORATORY DATA: 09/20/2017 - White count 13.1, hemoglobin 6.4. Sodium 131, potassium 4.3, chloride 94, carbon dioxide 27, BUN 27, creatinine 5.17. Glucose 100, calcium 9.5. ASSESSMENT AND PLAN: 1. End-stage renal disease, stable. Tolerating current hemodialysis regimen. Fluid removal only as tolerated, avoid the heparin due to the recent surgery. 2. Anemia - Continue weekly Epogen 10,000 units subcu every week. We will transfuse 2 units of pack ed RBC. 3. Peripheral vascular disease/nonhealing left leg ischemia - The patient is status post left below knee amputation. Awaiting placement with this patient. Recheck again basic metabolic panel and CBC in the morning.
[2017-09-20] MEDS: Famotidine 20 MG TAB PO SCH ×2 (10:18→21:39)
[2017-09-20] MEDS: Heparin 5,000 UNITS/ML VIAL SC SCH ×2 (10:18→21:39)
[2017-09-20] MEDS: Gabapentin 100 MG CAP PO SCH ×3 (10:18→21:39)
[2017-09-20] MEDS: Vancomycin HCl 1 GM in Premix Bag 1 BAG IVPB SCH ×2 (10:18→11:10)
[2017-09-20] MEDS ORDERED: Piperacillin-Tazo-Dextrose,Iso 3.375 GM in Premix Bag 1 BAG IVPB SCH (12:00)
[2017-09-20] MEDS ORDERED: Piperacillin/Tazobactam 3.375 GM in Sodium Chloride 0.9% 100 ML IVPB SCH (12:00)
[2017-09-20] MEDS ORDERED: Fentanyl 100 MCG/2 ML VIAL ONE ×4 (12:21→15:51)
[2017-09-20] MEDS ORDERED: Ondansetron PF 4 MG/2 ML Vial ONE (13:11)
[2017-09-20] MEDS ORDERED: Glycopyrrolate 0.2 MG/ML 5 ML SYRINGE ONE (13:11)
[2017-09-20] MEDS ORDERED: Lidocaine 1% PF 5 ML VIAL ONE (13:11)
[2017-09-20] MEDS ORDERED: PROPOFOL 200 MG/20 ML VIAL ONE (13:11)
[2017-09-20] MEDS ORDERED: Promethazine HCl 25 MG/ML VIAL IM PRN (14:31)
[2017-09-20] MEDS ORDERED: Promethazine HCl 25 MG/ML VIAL SLOW IVP PRN (14:31)
[2017-09-20] MEDS ORDERED: Ondansetron HCl/PF 4 MG/2 ML Vial IVP PRN (14:31)
--- NOTE | 2017-09-20 17:52 | OP ---
PREOPERATIVE DIAGNOSIS: Ischemic infection with sepsis following left gwpoe-lhb-gllj amputation. PROCEDURE PERFORMED: Revision mfneo-eoq-yrpn amputation to above-knee amputation. SURGEON: Dr. Mancini. ANESTHESIA: General. ESTIMATED BLOOD LOSS: Less than 100 mL. PROCEDURE IN DETAIL: After adequate anesthesia had been obtained, the patient was prepped and draped . A circumferential incision was made just above the patella with anterior and posterior flaps. The popliteal artery was suture ligated and divided. Femur was divided with the Gigli saw after elevati on of the periosteum. Edges were then smoothed and the area completely divided with the saw. Hemost asis was obtained and the area was thoroughly irrigated. Fascia was used to close over the distal fe mur and then skin raymundo were used to loosely reapproximate the skin given the recent infection in t he nearby field. The patient is to be taken to the recovery room in guarded condition.
[2017-09-20] MEDS: Simvastatin 20 MG TAB PO SCH (21:39)
[2017-09-20] MEDS: Piperacillin/Tazobactam 2.25 GM in Sodium Chloride 0.9% 50 ML IVPB SCH (23:17)
[2017-09-21] MEDS: Acetaminophen 1,000 MG in Premix Bag 1 BAG IVPB SCH ×4 (00:52→17:29)
[2017-09-21 06:35] LABS: #Eosinphils 0.2 thou/uL (0.0-0.7); #Lymphocytes 1.2 thou/uL (1.20-3.40); #Monocytes 0.8 thou/uL (0.11-0.59); #Neutrophils 8.7 thou/uL (1.40-6.50); %Eosinophils 1.7 % (0.0-10.0); %Lymphocytes 11.1 % (21.0-51.0); %Monocytes 7.6 % (0.0-10.0); %Neutrophils 79.5 % (42.0-75.0); Hemoglobin 7.6 g/dL (12.0-16.0); Mean Corpuscular HGB CONC 32.9 g/dL (32.0-36.0); Mean Corpuscular Hemoglobin 31.8 pg (27.0-31.0); Mean Corpuscular Volume 96.7 fl (81.0-99.0); Mean Platelet Volume 6.9 fL (7.4-10.4); Platelet Count 347 thou/uL (130-400); RBC Distribution Width 13.9 % (11.5-14.5); Red Blood Cell (RBC) Count 2.39 mill/uL (4.20-5.40); White Blood Cell (WBC) Count 10.9 thou/uL (4.8-10.8)
[2017-09-21 06:57] LABS: Anion Gap 13 mmol/L (10-20); BUN (Urea Nitrogen) 19 mg/dL (9.8-20.1); Calc. Creatinine Clearance 18 mL/min (70-130); Calcium 9.2 mg/dL (7.8-10.44); Carbon Dioxide 27 mmol/L (23-31); Chloride 96 mmol/L (98-107); Estimated GFR-MDRD 13; Glucose 119 mg/dL (80-115); Potassium 3.4 mmol/L (3.5-5.1); Sodium 133 mmol/L (136-145)
[2017-09-21] MEDS ORDERED: Piperacillin/Tazobactam 3.375 GM in Sodium Chloride 0.9% 100 ML IVPB SCH (09:00)
[2017-09-21] MEDS: Gabapentin 100 MG CAP PO SCH ×3 (09:06→20:42)
[2017-09-21] MEDS: Heparin 5,000 UNITS/ML VIAL SC SCH ×2 (09:06→20:43)
[2017-09-21] MEDS: Famotidine 20 MG TAB PO SCH ×2 (09:06→20:42)
--- NOTE | 2017-09-21 10:59 | PRG ---
DATE OF SERVICE: 09/21/2017 SERVICE: Renal Medicine. SUBJECTIVE: Ms. Castro is a 67-year-old old white female being followed up by the renal service fo r her maintenance hemodialysis. She underwent a revision of her BKA, which was converted to AKA due to infection. Patient was also started on empiric IV antibiotics. She was also noted to be anemic yesterday and she received 2 units of packed RBCs with dialysis. Cur rently, no new complaints. She is feeling a little better. PHYSICAL EXAMINATION: VITAL SIGNS: Blood pressure is 148/63, heart rate 65, respiratory rate 18, temperature 98.6, pulse o x 94%. GENERAL: Noted to be awake, alert, comfortable, not in overt distress. SKIN: Adequate turgor. HEENT: She has slightly pale conjunctivae, anicteric sclerae. NECK: No neck mass, no carotid bruits, no JVD. CHEST: No deformities. LUNGS: Clear breath sounds. No wheezing, no crackles. HEART: Normal sinus rhythm. No murmur, no gallops or rubs. ABDOMEN: Globular, soft, nontender, no masses. EXTREMITIES: No edema, no deformities. Positive for status post AKA. MEDICATIONS: Of 09/21/2017 was reviewed. LABORATORY DATA: Of 09/21/2017, white count 10.9, hemoglobin 7.6. Sodium 133, potassium 4.3, chlori de 96, carbon dioxide 27, BUN is 19, creatinine 3.58, glucose 109, calcium 9.2. ASSESSMENT AND PLAN: 1. End-stage renal disease, stable. No indication for any emergent hemodialysis. Our plan is to co ntinue Sunday, , and Sunday dialysis regimen. Again, fluid removal only as tolerated. 2. Anemia, p.r.n. blood transfusion. Continue weekly Epogen 10,000 units subcutaneously every week. 3. Mild hypokalemia. We will observe this, adjust the dialysis bath in a.m. 4. Infected left stump - the patient underwent revision of her below knee amputation to an above kne e amputation on the left lower extremity. Surgery is following. We will recheck basic metabolic pugh el and CBC in a.m.
[2017-09-21] MEDS: Piperacillin/Tazobactam 2.25 GM in Sodium Chloride 0.9% 50 ML IVPB SCH (11:45)
[2017-09-21] MEDS: fentaNYL Citrate/PF 2,000 MCG in Sodium Chloride 0.9% 60 ML IV PRN (17:29)
[2017-09-21] MEDS: Simvastatin 20 MG TAB PO SCH (20:42)
[2017-09-22] MEDS: Acetaminophen 1,000 MG in Premix Bag 1 BAG IVPB SCH (00:41)
[2017-09-22] MEDS: Piperacillin/Tazobactam 2.25 GM in Sodium Chloride 0.9% 50 ML IVPB SCH ×3 (00:43→23:39)
[2017-09-22 06:38] LABS: #Eosinphils 0.2 thou/uL (0.0-0.7); #Lymphocytes 1.6 thou/uL (1.20-3.40); #Monocytes 1.1 thou/uL (0.11-0.59); #Neutrophils 11.2 thou/uL (1.40-6.50); %Eosinophils 1.8 % (0.0-10.0); %Monocytes 7.9 % (0.0-10.0); %Neutrophils 79.3 % (42.0-75.0); Hemoglobin 7.4 g/dL (12.0-16.0); Mean Corpuscular Hemoglobin 30.6 pg (27.0-31.0); Mean Corpuscular Volume 98.7 fl (81.0-99.0); Mean Platelet Volume 6.8 fL (7.4-10.4); Platelet Count 331 thou/uL (130-400); RBC Distribution Width 13.9 % (11.5-14.5); White Blood Cell (WBC) Count 14.1 thou/uL (4.8-10.8)
[2017-09-22 06:44] LABS: Anion Gap 15 mmol/L (10-20); BUN (Urea Nitrogen) 27 mg/dL (9.8-20.1); Calc. Creatinine Clearance 13 mL/min (70-130); Calcium 8.5 mg/dL (7.8-10.44); Carbon Dioxide 23 mmol/L (23-31); Chloride 96 mmol/L (98-107); Estimated GFR-MDRD 8; Glucose 94 mg/dL (80-115); Potassium 3.6 mmol/L (3.5-5.1); Sodium 130 mmol/L (136-145)
[2017-09-22] MEDS: Famotidine 20 MG TAB PO SCH ×2 (09:28→20:42)
[2017-09-22] MEDS: Gabapentin 100 MG CAP PO SCH ×4 (09:28→20:42)
[2017-09-22] MEDS: Heparin 5,000 UNITS/ML VIAL SC SCH ×2 (09:28→20:43)
--- NOTE | 2017-09-22 11:47 | PRG ---
DATE OF SERVICE: 09/22/2017 RENAL MEDICINE SOCIAL HISTORY: Ms. Castro is 67-year-old white female being followed up for her ESRD - on mainten ance hemodialysis. Recently, she underwent left BKA with subsequent revision of BKA to AKA. I am currently at the dialysis unit supervising her dialysis. The patient voices no new complaints. PHYSICAL EXAMINATION: VITAL SIGNS: Blood pressure is noted at 109/67, heart rate 73, respiratory rate 20, temperature 98.8 , and pulse ox 93%. GENERAL: Noted to be awake, alert, supine, comfortable. SKIN: Adequate turgor. HEENT: Slightly pale conjunctivae, anicteric sclerae. NECK: No neck mass, no carotid bruits, no JVD. CHEST: No deformities. LUNGS: Clear breath sounds. No wheezing, no crackles. HEART: Normal sinus rhythm. No murmur, no gallops, no rubs. ABDOMEN: Globular, soft, nontender, no masses. EXTREMITIES: Right leg, no edema. Left - status post AKA. Dressings are dry and intact. MEDICATIONS: Medications of 09/22/2017 was reviewed. LABORATORY DATA: Laboratories of 09/22/2017; white count 14.1, hemoglobin 7.4, sodium 130, potassium 3.6, chloride 96, carbon dioxide 23, BUN 27, creatinine 5.07, glucose 94, and calcium 8.5. ASSESSMENT AND PLAN: 1. End-stage renal disease, stable. Tolerating current hemodialysis. Due to recent surgery, no hep stevie is being used. Maxing out fluid removal as tolerated by the patient. 2. Mild hyponatremia - delusional - we will correct with dialysis. 3. Anemia, continuing weekly Epogen. We will recheck CBC in a.m. 4. Peripheral vascular disease/left leg ischemia - status post below knee amputation with progressio n to above knee amputation. Surgery following. Awaiting rehab placement. 5. Recheck base met and CBC in a.m.
[2017-09-22] MEDS: HYDROcodone/Acetaminophen 5/325 mg Tablet PO PRN (14:17)
[2017-09-22] MEDS: Acetaminophen 325 MG TAB PO PRN (20:42)
[2017-09-22] MEDS: Simvastatin 20 MG TAB PO SCH (20:42)
[2017-09-23 07:42] LABS: #Eosinphils 0.2 thou/uL (0.0-0.7); #Lymphocytes 1.4 thou/uL (1.20-3.40); #Neutrophils 12.7 thou/uL (1.40-6.50); %Basophils 0.2 % (0.0-1.0); %Eosinophils 1.4 % (0.0-10.0); %Lymphocytes 8.8 % (21.0-51.0); %Monocytes 6.8 % (0.0-10.0); %Neutrophils 82.9 % (42.0-75.0); Hemoglobin 7.2 g/dL (12.0-16.0); Mean Corpuscular HGB CONC 31.8 g/dL (32.0-36.0); Mean Corpuscular Hemoglobin 30.9 pg (27.0-31.0); Mean Corpuscular Volume 97.3 fl (81.0-99.0); Mean Platelet Volume 6.8 fL (7.4-10.4); Platelet Count 397 thou/uL (130-400); RBC Distribution Width 13.6 % (11.5-14.5); Red Blood Cell (RBC) Count 2.32 mill/uL (4.20-5.40); White Blood Cell (WBC) Count 15.3 thou/uL (4.8-10.8)
[2017-09-23 07:51] LABS: Anion Gap 13 mmol/L (10-20); BUN (Urea Nitrogen) 24 mg/dL (9.8-20.1); Calc. Creatinine Clearance 16 mL/min (70-130); Calcium 9.6 mg/dL (7.8-10.44); Carbon Dioxide 29 mmol/L (23-31); Chloride 95 mmol/L (98-107); Estimated GFR-MDRD 11; Glucose 106 mg/dL (80-115); Potassium 3.6 mmol/L (3.5-5.1); Sodium 133 mmol/L (136-145)
[2017-09-23] MEDS: Gabapentin 100 MG CAP PO SCH ×3 (09:23→21:07)
[2017-09-23] MEDS: Famotidine 20 MG TAB PO SCH ×2 (09:23→21:08)
[2017-09-23] MEDS: Heparin 5,000 UNITS/ML VIAL SC SCH ×2 (09:24→21:09)
[2017-09-23] MEDS: Piperacillin/Tazobactam 2.25 GM in Sodium Chloride 0.9% 50 ML IVPB SCH (12:10)
[2017-09-23] MEDS: HYDROcodone/Acetaminophen 5/325 mg Tablet PO PRN ×3 (12:10→22:01)
--- NOTE | 2017-09-23 12:11 | PRG ---
DATE OF SERVICE: 09/23/2017 RENAL MEDICINE SUBJECTIVE: Patient voices no new complaints. Denies any chest pain or shortness of breath. Denies any postop pain. Please note she underwent hemodialysis yesterday without any difficulty. OBJECTIVE: VITAL SIGNS: Blood pressure 166/70, heart rate 81, respiratory rate 18, temperature 98.5, pulse ox 9 6%. GENERAL: Awake, alert, supine, comfortable. SKIN: Adequate turgor. HEENT: Slightly pale conjunctivae, anicteric sclerae. NECK: No neck mass, no carotid bruits, no JVD. CHEST: No deformities. LUNGS: Decreased breath sounds. HEART: Normal sinus rhythm. No murmur, no gallops, no rubs. ABDOMEN: Globular, soft, nontender, no masses. EXTREMITIES: No edema, status post left AKA. MEDICATIONS: Of 09/23/2017 reviewed. LABORATORY DATA: 09/23/2017, white count 15.3, hemoglobin 7.2, sodium 133, potassium 3.6, chloride 9 5, carbon dioxide 29, BUN 24, creatinine 4.1, glucose is 106, calcium 9.6. ASSESSMENT AND PLAN: 1. Anemia, currently on Epogen 10,000 units subcutaneous every 7 days p.r.n. blood transfusion. 2. End-stage renal disease, stable. Continue Sunday, , and Sunday dialysis regimen. No indication for any emergent hemodialysis today. Dialysis is being tolerated by the patient. 3. Peripheral vascular disease - Patient is status post above-knee amputation. Doing well. Surgery is following. Overall, agree with current management. The patient is currently on IV antibiotics.
[2017-09-23] MEDS: Ibuprofen 200 MG TAB PO PRN (21:07)
[2017-09-23] MEDS: Simvastatin 20 MG TAB PO SCH (21:07)
[2017-09-24] MEDS: Piperacillin/Tazobactam 2.25 GM in Sodium Chloride 0.9% 50 ML IVPB SCH ×2 (00:33→12:39)
[2017-09-24] MEDS: Acetaminophen 325 MG TAB PO PRN (00:35)
[2017-09-24] MEDS: HYDROcodone/Acetaminophen 5/325 mg Tablet PO PRN ×3 (01:43→12:40)
[2017-09-24] MEDS ORDERED: Epoetin (ESRD) 20,000 UNITS/ML SC SCH (09:00)
[2017-09-24] MEDS: Famotidine 20 MG TAB PO SCH (09:08)
[2017-09-24] MEDS: Gabapentin 100 MG CAP PO SCH ×2 (09:08→14:57)
[2017-09-24] MEDS: Ibuprofen 200 MG TAB PO PRN (09:08)
[2017-09-24] MEDS: Heparin 5,000 UNITS/ML VIAL SC SCH (09:39)
[2017-09-24 16:07] VITALS: BP 148/66; TEMP 98.1
--- NOTE | 2017-09-25 15:09 | DIS ---
HOSPITAL COURSE: The patient was initially admitted on 09/12/2017 where she underwent surgical inter vention with plan for a left common femoral endarterectomy. Due to heavily calcified iliac arteries, a clamp could not be safely applied. She then underwent angiography intraoperatively and balloon an gioplasty of the left common femoral artery as well as external iliac artery. She had a nice result from her common femoral artery angioplasty with no residual stenosis. Unfortunately, she had advance d gangrenous changes in her foot and then was taken back to the operating room. Prior to repeat surg ical intervention, she was seen in consultation by the [facility] service for necrotic wound on her vagin al area. They did a local debridement. On 09/14/2017, I returned to the patient to the OR, where michel kaufman underwent a left bnpsn-xok-vpcv amputation. Unfortunately, this became infected with evidence of p oor vascularity. It was suspected at that time that she had re-occluded her left common femoral janay ry and on 09/20/2017, she was returned to the operating room where her amputation was revised from be low the knee to above the knee. She was ultimately discharged on 09/24/2017 to continue her hemodial ysis as an outpatient and be followed up at the inpatient rehabilitation unit. Discharge and follow up instructions have been given.
--- NOTE | 2017-09-25 15:09 | HP ---
HISTORY OF PRESENT ILLNESS: This is a 67-year-old female on chronic hemodialysis. She has had a 2-3 month history of a nonhealing wound on the left medial ankle with wrist pain. Cardiovascular risk f actors include end-stage renal disease. She has also had a high dose radiation therapy for complicat ed cervical cancer that included pelvic exenteration, ileal conduit and end colostomy. She has been on dialysis for the past 10 years. PAST MEDICAL HISTORY: Negative otherwise. PAST SURGICAL HISTORY: Hysterectomy in 1987, kidney removal in 2001, pelvic exenteration and AV fist sho in the left upper arm. SOCIAL HISTORY: She is nonsmoker, lives with her sister. ALLERGIES: She has allergies to SULFACETAMIDE. MEDICATIONS: Multiple and include CharcoCaps, diphenhydramine, ibuprofen, levothyroxine, Renvela, Se nsipar, tramadol, Tums. REVIEW OF SYSTEMS: The patient is still able to drive herself to dialysis. She admits to fatigue an d sleeping a lot in a chair. She denies cough, shortness of breath at rest, although does have dyspn ea on exertion. She has no chest pain. She does admit to lower extremity edema. PHYSICAL EXAMINATION: GENERAL: Alert, cooperative lady. VITAL SIGNS: Blood pressure 143/55, heart rate 100. No distress. NECK: No carotid bruits. CARDIAC: Systolic and diastolic murmur that may be cardiac related or related to her AV fistula. It sounds more like a systolic murmur. LUNGS: Clear to auscultation. EXTREMITIES: She has an AV fistula in the left upper arm. She has edematous left foot with 2 cm esc dimas distal to the medial malleolus and at the base of the fourth toe. I am unable to feel femoral pu lses, but she does have a soft bruit on the left. She has a Doppler signal in her right foot that is biphasic and her left DP is monophasic. IMAGING: CT scan suggests subtotal occlusion of the left common femoral artery with severe calcified aortoiliac disease. PLAN: At this time is attempted left common femoral endarterectomy if there is any way to control of blood flow. She is agreeable to proceed with this.
--- NOTE | 2017-10-02 17:48 | PQF ---
ARTURO GRANDE JAMES M MD [id number] SURG B- [id number] CLINICAL DOCUMENTATION CLARIFICATION FORM: POST DISCHARGE Addendum to original discharge summary date: ____ Late entry note date: __ DATE: 10/02/17 ATTN: Houston Mancini MD Please exercise your independent, professional judgment in responding to the clarification form. Clinical indicators are provided on the bottom of this form for your review OP Note 09/24/17 Preoperative Diagnoses: Ischemic infection with swpsis following below the knee amputations [ ] Diagnosis of: Sepsis [ ] Present on admission: [ ] Yes [ ] No [ ] Subsequent to admission: [ ] Unable to determine [ ] Other diagnosis: Coding guidelines require hospitals to identify whether a diagnosis was present on admission (POA) or not. To accurately assign the appropriate POA indicator, this information must be clearly documented within the medical record. CLINICAL INDICATORS - SIGNS / SYMPTOMS / LABS Documentation of: Documentation of: Documentation of: RISK FACTORS: TREATMENT: (This form is maintained as a part of the permanent medical record) 2014 [employer] All Rights Reserved Cristian [email or web address] [phone] [email or web address]
== END 2017-09-24 18:29 | DRG 239 ==
LOC: SURG A 09-12 05:40 → SURG B 09-12 12:10
PROVIDERS: ADMIT Thoracic Surgery (Cardiothoracic Vascular Surgery); ATTEND Thoracic Surgery (Cardiothoracic Vascular Surgery)
PROC: 047J3ZZ Dilation of Left External Iliac Artery, Percutaneous Approach (ICD-10-PCS; 2017-09-12)
PROC: 047L3ZZ Dilation of Left Femoral Artery, Percutaneous Approach (ICD-10-PCS; 2017-09-12)
PROC: 0UBM0ZZ Excision of Vulva, Open Approach (ICD-10-PCS; 2017-09-13)
PROC: 5A1D70Z Performance of Urinary Filtration, Intermittent, Less than 6 Hours Per Day (ICD-10-PCS; 2017-09-13)
PROC: 0Y6J0Z3 Detachment at Left Lower Leg, Low, Open Approach (ICD-10-PCS; principal; 2017-09-14)
PROC: 0Y6D0Z3 Detachment at Left Upper Leg, Low, Open Approach (ICD-10-PCS; 2017-09-20)
DX: I70.262 Atherosclerosis of native arteries of extremities with gangrene, left leg (principal); N18.6 End stage renal disease; A41.9 Sepsis, unspecified organism; E87.1 Hypo-osmolality and hyponatremia; L97.529 Non-pressure chronic ulcer of other part of left foot with unspecified severity; N11.9 Chronic tubulo-interstitial nephritis, unspecified; T87.44 Infection of amputation stump, left lower extremity; N76.6 Ulceration of vulva; D64.9 Anemia, unspecified; E87.6 Hypokalemia; E03.9 Hypothyroidism, unspecified; N90.89 Other specified noninflammatory disorders of vulva and perineum; Z85.41 Personal history of malignant neoplasm of cervix uteri; Z99.2 Dependence on renal dialysis; Z92.3 Personal history of irradiation; Z90.710 Acquired absence of both cervix and uterus; Y83.5 Amputation of limb(s) as the cause of abnormal reaction of the patient, or of later complication, without mention of misadventure at the time of the procedure; Y92.234 Operating room of hospital as the place of occurrence of the external cause
CPT/HCPCS: 36415; 36430; 76001; 80048; 83036; 85025; 85027; 86850; 86900; 86901; 88304; 88307; 88311; 90935; 93005; 93010; C1725; C1769; G0257; G8978-GP-CL; G8979-GP-CK; G8987-GO-CL; G8988-GO-CJ; J0131; J1642; J1644; J2001; J2250; J2405; J2543; J2704; J2720; J3010; J3370; J7050; P9016; Q4081; S0020

== ENCOUNTER 2017-10-13 08:23 | Day surgery (SDC) | payer MEDICARE, BC ==
[2017-10-13] MEDS ORDERED: Fentanyl 100 MCG/2 ML VIAL ONE ×3 (08:31→11:09)
[2017-10-13] MEDS ORDERED: Midazolam HCl 2 mg/2 ml Vial ONE (08:31)
--- NOTE | 2017-10-13 08:34 | HP ---
HISTORY OF PRESENT ILLNESS: This is an unfortunate 67-year-old lady who underwent a left below-knee amputation on 09/14/2017 for gangrenous foot with failed revascularization of the left leg. She then developed an infection probably from ischemia and underwent revision to an above-knee amputation on 09/20/2017. She was ultimately transferred on 09/24/2017 to the rehab facility. She was doing well here and was noticed to have some drainage from her amputation site that grew Pseudomonas and I was c ontacted today in that regard. In addition, she has a vulvar wound that has also been present and se en by OB-PULP OPERATOR. PAST MEDICAL HISTORY: Significant for she had cervical cancer treated with radiation and pelvic exen teration. 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 PAST SURGICAL HISTORY: Otherwise is significant for a hysterectomy, nephrectomy, and AV fistula in h er left arm. SOCIAL HISTORY: She is a nonsmoker. Lives with her sister. ALLERGIES: SULFACETAMIDE. PHYSICAL EXAMINATION: GENERAL: She is an alert, cooperative lady in no distress. Good color. NECK: No carotid bruits. CARDIAC: Systolic and diastolic murmurs that may be cardiac related or related to her AV fistula. I t does sound more like a systolic murmur. LUNGS: Clear. ABDOMEN: Has the previously noted ostomies. EXTREMITIES: Lower extremities: She has left AK amputation. I am unable to palpate femoral pulses. She has a stapled incision with some necrosis medially and laterally with small amount of brown isai inage medially. At this time, the patient probably has inadequate circulation for healing and needs a possible re-amp utation at higher level. Plan is for incision and drainage and possible re-amputation. CURRENT MEDICATIONS: Sensipar 30 mg daily, Cipro 250 mg b.i.d., darbepoetin 60 mcg every Sunday, le vothyroxine 75 mcg daily, Flagyl 250 mg t.i.d., MiraLax 17 grams daily, Renvela 800 mg tablet b.i.d., [place] p.r.n., trazodone 50 at bedtime p.r.n., clonidine 0.1 mg q.6 hours p.r.n. PLAN: Plan at this time is re-admission to [facility] for an incision and drainage tomorr ow and informed consent has been obtained.
[2017-10-13] MEDS ORDERED: Morphine 2 MG/ML SYRINGE ONE (12:07)
[2017-10-13] MEDS ORDERED: Ondansetron HCl/PF 4 MG/2 ML Vial ONE (12:10)
--- NOTE | 2017-10-13 14:54 | OP ---
DATE OF PROCEDURE: 10/13/2017 PREOPERATIVE DIAGNOSIS: Nonviable skin edges above-knee amputation, left leg. PROCEDURE: Debridement left leg. SURGEON: Houston Mancini M.D. ANESTHESIA: General. ESTIMATED BLOOD LOSS: Minimal. PROCEDURE: After adequate anesthesia had been obtained, the patient was prepped and draped. Nonviab le skin was excised from both corners of the amputation and the midline appeared to be healed and sec ured. The medial aspect of the wound was mostly necrotic fat, which was debrided and this did not tu nneled. On the lateral aspect that did tunnel a little deeper, but no purulent material was seen. T he area was thoroughly irrigated and packed. Dressings were applied. Specimen for cultures were marshall en.
[2017-10-13] MEDS ORDERED: PHENYLEPHRINE-NS 100 MCG/ML 10 ML SYRINGE ONE (16:31)
[2017-10-13] MEDS ORDERED: Propofol 200 MG/20 ML VIAL ONE (16:31)
[2017-10-13] MEDS ORDERED: Lidocaine 1% PF 5 ML VIAL ONE (16:31)
== END 2017-10-13 12:30 | disposition home or self-care (01) ==
LOC: SDC 08:23
PROVIDERS: ATTEND Thoracic Surgery (Cardiothoracic Vascular Surgery)
PROC: 0JBM0ZZ Excision of Left Upper Leg Subcutaneous Tissue and Fascia, Open Approach (ICD-10-PCS; principal; 2017-10-13)
DX: T87.89 Other complications of amputation stump (principal); S31.40XA Unspecified open wound of vagina and vulva, initial encounter; N18.6 End stage renal disease; N11.9 Chronic tubulo-interstitial nephritis, unspecified; J44.9 Chronic obstructive pulmonary disease, unspecified; E78.5 Hyperlipidemia, unspecified; E03.9 Hypothyroidism, unspecified; Z99.2 Dependence on renal dialysis; Z79.899 Other long term (current) drug therapy; Z88.2 Allergy status to sulfonamides; Z93.3 Colostomy status; Z89.612 Acquired absence of left leg above knee; Z90.710 Acquired absence of both cervix and uterus; Z90.79 Acquired absence of other genital organ(s); Z90.722 Acquired absence of ovaries, bilateral; Z90.5 Acquired absence of kidney; Z98.890 Other specified postprocedural states; Z85.41 Personal history of malignant neoplasm of cervix uteri; Z92.3 Personal history of irradiation
CPT/HCPCS: 36416; J0744; J2001; J2250; J2270; J2405; J2704; J3010

== ENCOUNTER 2017-10-22 09:06 | Outpatient (CLI) | payer MEDICARE, BC ==
--- NOTE | 2017-10-22 23:51 | HP ---
DATE OF SERVICE: 10/22/2017 HISTORY OF PRESENT ILLNESS: Ms. Shannan Castro is a very pleasant 67-year-old who presents to the [facility] for evaluation of 2 wounds of her left zoset-utt-bvik amputation stump. The patient under went intraoperative debridement of nonviable skin edges of her left penmk-yfo-eosk amputation stump o n 10/13/[address] Houston Mancini. The patient states that she was discharged from [facility] on 09/19. The patient states that negative pressure therapy was initiated during her stay at [facility]. Upon her discharge from [facility], the patient was referred to the Wound Center for assistance with dressing changes of the wound VAC. PAST MEDICAL HISTORY: 1. End-stage renal disease. 2. Hypothyroidism. 3. History of cervical carcinoma, status post radiation. PAST SURGICAL HISTORY: 1. Open left common superficial profunda femoral exposure with angiography and ballooning left commo n femoral artery and left external iliac artery. 2. Hysterectomy. 3. Right nephrectomy. 4. Pelvic exenteration for recurrent cervical carcinoma with colostomy and ileal conduit. 5. Left lblyo-nhc-usfh amputation. 6. Local excision of necrotic tissue, 09/13/2017. 7. Revision of left omhfk-ani-akfp amputation, 2 left wmzcz-lmk-tkzd amputation. 8. Dialysis access procedures 9. Left above the knee amputation stump debridement on 10/13/[address] Mancini. MEDICATIONS: 1. Hydrocodone/acetaminophen. 2. Ciprofloxacin. 3. Metronidazole. 4. Ondansetron. 5. Levothyroxine. 6. Sensipar. 7. Renvela. ALLERGIES: SULFA. SOCIAL HISTORY: Negative for tobacco or ETOH use. FAMILY HISTORY: Significant for diabetes mellitus. The patient states that her mother and oldest br other were diagnosed with diabetes mellitus. Family history is also significant for coronary artery disease. The patient states that she has 1 brother who was diagnosed with coronary artery disease. PHYSICAL EXAMINATION: VITAL SIGNS: Temperature 97.9, pulse 85, respirations 18, blood pressure 175/74. GENERAL: A 67-year-old female sitting on chair in examination room in no acute distress. HEENT: Normocephalic, atraumatic. NECK: No nuchal rigidity. CHEST: Clear to auscultation. CARDIAC: Regular rate and rhythm. ABDOMEN: Soft. EXTREMITIES: Two ulcerations of the left rabnh-qcb-cltk amputation present, one over the medial stum p and one over the lateral stump. Granulation tissue is present within the margins of each wound. N o purulent drainage is associated with either wound. No erythema of the skin surrounding either woun d is present. No maceration of the skin of the periwound of either wound is noted. A femoral pulse is not palpable on the left. No significant edema of the left uppsa-vor-ithn amputation stump is sami reciated on exam today. ASSESSMENT AND PLAN: 1. Ulcerations of left jymmi-cyi-vjgi amputation stump. As described above, negative pressure thera py will be continued with dressing changes of the wound VAC here in the Wound Center or with the assi stance of Home Health. The patient has been reminded to continue ciprofloxacin and Flagyl as previou sly prescribed. I will see Ms. Castro in 2 weeks. 2. End-stage renal disease. 3. Hypothyroidism. 4. History of cervical carcinoma, status post radiation therapy.
== END 2017-10-22 09:07 | disposition home or self-care (01) ==
LOC: WCC 09:06
PROVIDERS: ATTEND Family Medicine
DX: T87.89 Other complications of amputation stump (principal); L97.129 Non-pressure chronic ulcer of left thigh with unspecified severity; N18.6 End stage renal disease; E03.9 Hypothyroidism, unspecified; Z85.41 Personal history of malignant neoplasm of cervix uteri; Z92.3 Personal history of irradiation
CPT/HCPCS: 97139; 97606; G0463; 99204

== ENCOUNTER 2017-11-05 10:26 | Outpatient (CLI) | payer MEDICARE, BC ==
[2017-11-05] MEDS ORDERED: Sodium Chloride 0.9% 15 ML NEB ONE (11:11)
[2017-11-05] MEDS ORDERED: Lidocaine 4% Topical Sol 50 ML BOT ONE (11:11)
--- NOTE | 2017-11-05 13:49 | PRG ---
DATE OF SERVICE: 11/05/2017 HISTORY: Ms. Shannan Castro is a very pleasant 67-year-old who presents to the Wound Center for eval uation of 2 wounds of her left rbzmz-wut-vfgd amputation stump. The patient underwent intraoperative debridement of nonviable skin edges of her left itqcb-scw-zimi amputation stump on 10/13/[address] Houston Mancini. The patient stated that she was discharged from [facility] on 10/17/2017. The patien t stated that negative pressure therapy was initiated during her stay at [facility]. Upon her disch arge from [facility], the patient was referred to the Wound Center for assistance with dressing garcia ges of the wound VAC. The patient has also been receiving assistance with wound VAC dressing changes by Home Health since her last visit to the Wound Center. PHYSICAL EXAMINATION: VITAL SIGNS: Temperature 97.8, pulse 89, respirations 18, blood pressure 191/82. EXTREMITIES: Two ulcerations of the left vzaow-upy-shtp amputation stump are present. One ulceratio n is present over the medial stump and one ulceration is present over the lateral stump. Both wounds are granulating. No purulent drainage is associated with either wound. No erythema of the skin erasto rounding either wound is present. No maceration of the skin of the periwound of either wound is note d. No significant edema of the left dcqkb-bbt-uxnn amputation stump is appreciated on exam today. ASSESSMENT AND PLAN: 1. Ulcerations of left qkdjt-kog-lffo amputation stump as described above. Negative pressure therap y will be continued with dressing changes of the wound VAC with the assistance of Home Health. I hav e asked the patient to reschedule an appointment with Dr. Mancini. I will see Ms. Castro again after she has been seen by Cardiovascular Surgery. 2. End-stage renal disease. 3. Hypothyroidism. 4. History of cervical carcinoma, status post radiation therapy.
== END 2017-11-05 10:27 | disposition home or self-care (01) ==
LOC: WCC 10:26
PROVIDERS: ATTEND Family Medicine
DX: T87.89 Other complications of amputation stump (principal); N18.6 End stage renal disease; E03.9 Hypothyroidism, unspecified; Z85.41 Personal history of malignant neoplasm of cervix uteri
CPT/HCPCS: 97605; A4218; J2001

== ENCOUNTER 2017-11-14 09:56 | Outpatient (CLI) | payer MEDICARE, BC ==
--- NOTE | 2017-11-14 11:55 | PRG ---
DATE OF SERVICE: 11/14/2017 HISTORY: Ms. Shannan Castro is a very pleasant 67-year-old who presents to the Wound Center for e valuation of 2 wounds of her left kfkzq-uda-sfca amputation stump. The patient underwent intraoperat dione debridement of nonviable skin edges of her left atxrc-ocr-mfav amputation stump on 10/13/[address] Houston Mancini. The patient stated that she was discharged from [facility] on 10/17/2017. The pat ient stated that negative pressure therapy was initiated during her stay at [facility]. Upon her di scharge from [facility], the patient was referred to the Wound Center for assistance with dressing c hanges of the wound VAC. The patient has also been receiving assistance with wound VAC dressing garcia ges by [facility] since her last visit to the Wound Center. PHYSICAL EXAMINATION: VITAL SIGNS: Temperature 98.0, pulse 101, respirations 19, blood pressure 186/77. EXTREMITIES: Two ulcerations of the left hvqxu-kcx-ktmk amputation stump are present. One ulceratio n is present over the medial stump and measures approximately 4.0 x 3.0 cm. Another ulceration is pr esent over the lateral stump and measures approximately 3.0 x 1.3 cm. Both wounds are granulating. No purulent drainage is associated with either wound. No erythema of the skin surrounding either wou nd is present. No maceration of the skin of the periwound of either wound is noted. No significant edema of the left kzrfg-ntm-hcuz amputation stump is appreciated on exam today. ASSESSMENT AND PLAN: 1. Ulcerations of left ntwff-uaq-azle amputation stump. Negative pressure therapy will be continued with dressing changes of the wound VAC 2 times per week after cleansing and irrigation with the assi stance of Home Health. I will see Ms. Castro again in 3 weeks. 2. End-stage renal disease. 3. Hypothyroidism. 4. History of cervical carcinoma, status post radiation therapy.
[2017-11-14] MEDS ORDERED: Lidocaine 4% Topical Sol 50 ML BOT ONE (14:30)
[2017-11-14] MEDS ORDERED: Sodium Chloride 0.9% 15 ML NEB ONE (14:30)
== END 2017-11-14 09:57 | disposition home or self-care (01) ==
LOC: WCC 09:56
PROVIDERS: ATTEND Family Medicine
DX: T87.89 Other complications of amputation stump (principal); N18.6 End stage renal disease; E03.9 Hypothyroidism, unspecified; Z89.512 Acquired absence of left leg below knee; Z85.41 Personal history of malignant neoplasm of cervix uteri; Z92.3 Personal history of irradiation
CPT/HCPCS: 97605; A4218; J2001

== ENCOUNTER 2017-12-05 10:38 | Outpatient (CLI) | payer MEDICARE, BC ==
--- NOTE | 2017-12-05 12:11 | PRG ---
DATE OF SERVICE: 12/05/2017 HISTORY: Ms. Shannan Castro is a very pleasant 67-year-old who presents to the Wound Center f or evaluation of 2 wounds of her left qhpou-rpe-zejq amputation stump. The patient underwent intraop erative debridement of nonviable skin edges of her left hczeo-jqf-eqln amputation stump on 10/13/[address] Houston Mancini. The patient stated that she was discharged from [facility] on 10/17/2017. The patient stated that negative pressure therapy was initiated during her stay at [facility]. Upon he r discharge from [facility], the patient was referred to the Wound Center for assistance with dressi ng changes of the wound VAC. The patient has also been receiving assistance with wound VAC dressing changes by Home Health since her last visit to the Wound Center. PHYSICAL EXAMINATION: VITAL SIGNS: Temperature 97.5, pulse 79, respirations 18, blood pressure 194/77. EXTREMITIES: Only 1 ulceration of the left fqodi-bax-yfkz amputation stump remains. The dimensions of the wound are approximately 3.4 x 3.8 cm. The wound is granulating. No purulent drainage is asso ciated with the wound. No erythema of the skin surrounding the wound is present. No maceration of t he skin of the periwound is noted. No significant edema of the left zrquq-fzm-maso amputation stump is present on today's exam. ASSESSMENT AND PLAN: 1. Ulcerations of left rhupu-hsi-jgiu amputation stump. As stated above, only one ulceration remain s. Negative pressure therapy will be discontinued today. Dressing changes of [place] and bordered gauze are to be performed 3 times per week after cleansing and irrigation with the assistance of [facility] [employer]. I will see Ms. Castro again in 3 weeks if her wound is still present at this time. 2. End-stage renal disease. 3. Hypothyroidism. 4. History of cervical carcinoma, status post radiation therapy.
[2017-12-07] MEDS ORDERED: Sodium Chloride 0.9% 15 ML NEB ONE (12:27)
[2017-12-07] MEDS ORDERED: Lidocaine 2% Jelly 5 ML TUBE ONE (12:27)
== END 2017-12-05 10:39 | disposition home or self-care (01) ==
LOC: WCC 10:38
PROVIDERS: ATTEND Family Medicine
DX: T87.89 Other complications of amputation stump (principal); N18.6 End stage renal disease; E03.9 Hypothyroidism, unspecified; Z85.41 Personal history of malignant neoplasm of cervix uteri
CPT/HCPCS: 97602

== ENCOUNTER 2018-02-26 19:56 | Inpatient (IN) | payer MEDICARE, BC ==
[2018-02-26] MEDS ORDERED: Ondansetron ODT 8 MG TAB ONE (20:44)
[2018-02-26 20:59] LABS: Bilirubin Negative (Negative); Blood, Urine Negative (Negative); Clarity TURBID (Clear); Glucose, Urine (Dipstick) Negative (Negative); Leukocyte Negative (Negative); Nitrite Negative (Negative); Protein, Urine (Dipstick) 300 mg/dL (Neg-Trace); Specific Gravity, Urine 1.013 (1.002-1.036); Urobilinogen 0.2 mg/dL (0.2-1.0)
[2018-02-26 21:05] LABS: Bacteria/HPF 1+ HPF (None Seen); Squamous Epithelial 21-50 HPF (0-3)
[2018-02-26 21:06] LABS: Pathc Cast-AUWi Flag 24.77 (0-2.49)
[2018-02-26 21:07] LABS: Yeast-All Forms None Seen HPF (None Seen)
[2018-02-26 21:08] LABS: Crystals/HPF None Seen HPF (Negative)
[2018-02-26 21:09] LABS: Hyaline Casts/LPF 7-10 HYALINE CAST LPF (0-3 Hyaline)
[2018-02-26 21:18] LABS: Hemoglobin 11.9 g/dL (12.0-16.0); Mean Corpuscular HGB CONC 33.8 g/dL (32.0-36.0); Mean Corpuscular Hemoglobin 31.6 pg (27.0-31.0); Mean Corpuscular Volume 93.3 fl (81.0-99.0); Mean Platelet Volume 6.4 fL (7.4-10.4); Platelet Count 348 thou/uL (130-400); RBC Distribution Width 13.5 % (11.5-14.5); Red Blood Cell (RBC) Count 3.78 mill/uL (4.20-5.40)
[2018-02-26 21:31] LABS: ALT (SGPT) 7 U/L (8-55); AST (SGOT) 8 U/L (5-34); Albumin 3.6 g/dL (3.4-4.8); Alkaline Phosphatase 96 U/L (40-150); Anion Gap 23 mmol/L (10-20); BUN (Urea Nitrogen) 71 mg/dL (9.8-20.1); Calc. Creatinine Clearance 0 mL/min (70-130); Calcium 10.3 mg/dL (7.8-10.44); Carbon Dioxide 24 mmol/L (23-31); Chloride 90 mmol/L (98-107); Estimated GFR-MDRD 4; Globulin 3.1 g/dL (2.4-3.5); Glucose 131 mg/dL (80-115); Protein, Total 6.7 g/dL (6.0-8.3); Sodium 130 mmol/L (136-145)
[2018-02-26 21:34] LABS: Potassium 7.1 mmol/L (3.5-5.1)
[2018-02-26 21:37] LABS: Band 3 % (5-11); Lymphocytes 13 % (21-51); MDiff Complete? YES; Monocytes 4 % (0-10); Neutrophil 80 % (42-75)
[2018-02-26 21:38] LABS: Troponin I 0.028 ng/mL (< 0.028)
[2018-02-26] MEDS ORDERED: Calcium Gluc 4.6 MEQ/10 ML (100 MG/ML) ONE (21:40)
[2018-02-26] MEDS ORDERED: Sodium Bicarbonate 2.5 MEQ/5 ML VIAL ONE (21:40)
[2018-02-26] MEDS ORDERED: Dextrose 50% Abboject 50 ML SYRINGE ONE (21:40)
[2018-02-26] MEDS ORDERED: Insulin Regular 300 UNITS/3 ML VIAL ONE (21:40)
[2018-02-26] MEDS ORDERED: Sodium Bicarb 50 MEQ/50 ML Abboject 8.4% SYRINGE ONE (21:41)
--- NOTE | 2018-02-26 21:48 | RAD ---
UPRIGHT CHEST AND TWO VIEW ABDOMEN: 02/26/18 INDICATIONS: Abdominal pain with vomiting. The lung martinez appear clear on the upright chest. Supine upright and left decubitus views of abdomen obtained. No free intraperitoneal air. There are gas filled mildly dilated loops of small bowel in the mid abdo men. Scattered stool and gas in the colon. Arterial calcification is prominent. IMPRESSION: Gas filled loops of mildly dilated small bowel in the mid abdomen. Findings may represent ileus or en teritis. There is scattered stool and gas in the colon. Low grade small bowel obstruction not exclude d. POS: [facility]
[2018-02-26] MEDS ORDERED: SODIUM CHLORIDE 0.9% IVPB SCH (23:46)
[2018-02-26] MEDS ORDERED: Guaifenesin DM 100-10/5 ML UDCUP PO PRN (23:46)
[2018-02-26] MEDS ORDERED: VANCOMYCIN HCL IVPB SCH (23:46)
[2018-02-27 00:20] LABS: HBSAg Index 0.14 S/CO (0-0.99); Hep B Surf Ag Non-Reactive S/CO (NonReactive)
[2018-02-27] MEDS: Sodium Chloride 0.9% 1,000 ML IV SCH ×2 (01:36→05:09)
[2018-02-27] MEDS: Piperacillin/Tazobactam 2.25 GM in Sodium Chloride 0.9% 100 ML IVPB SCH ×3 (01:37→17:25)
[2018-02-27] MEDS ORDERED: HOLD VANCOMYCIN FOR LEVEL >20 FS SCH (02:45)
[2018-02-27] MEDS ORDERED: Vancomycin HCl 1 GM in Premix Bag 1 BAG IVPB SCH ×2 (02:45→04:00)
[2018-02-27] MEDS ORDERED: Vancomycin HCl 250 MG in Sodium Chloride 0.9% 100 ML IVPB SCH (02:45)
[2018-02-27] MEDS ORDERED: Vancomycin HCl 750 MG in Sodium Chloride 0.9% 250 ML 250 ML IVPB SCH (02:45)
[2018-02-27] MEDS ORDERED: Vancomycin HCl 500 MG in Sodium Chloride 0.9% 100 ML IVPB SCH (02:45)
[2018-02-27] MEDS ORDERED: Dextrose 50% Abboject 50 ML SYRINGE ONE (02:51)
[2018-02-27 03:16] LABS: pH, Arterial 7.49 (7.35-7.45)
[2018-02-27 03:17] LABS: Actual Bicarbonate (HCO3a) 28.1 mEq/L (22-28); Base Excess (BEa) 4.6 mEq/L (-2.0 to +3.0); CO2 Tension 37.5 mmHg (35.0-45.0); O2 Tension (PaO2) 59.1 mmHg (> 80.0)
[2018-02-27 03:18] LABS: Hematocrit-ABG 33.2 % (36.0-47.0); Hemoglobin (Hb) 10.4 g/dL (12.0-16.0)
[2018-02-27 03:19] LABS: ALV-art Gradient 93.665 (0-20); Calcium, Ionized 1.2 mmol/L (1.12-1.30); Puncture Site L BRACHIAL
[2018-02-27 03:31] LABS: Troponin I 0.032 ng/mL (< 0.028)
[2018-02-27 03:38] LABS: Band 4 % (5-11); Lymphocytes 35 % (21-51); MDiff Complete? YES; Mean Corpuscular HGB CONC 33.5 g/dL (32.0-36.0); Mean Corpuscular Hemoglobin 31.2 pg (27.0-31.0); Mean Corpuscular Volume 93.2 fl (81.0-99.0); Mean Platelet Volume 6.3 fL (7.4-10.4); Monocytes 3 % (0-10); Neutrophil 58 % (42-75); Platelet Count 368 thou/uL (130-400); RBC Distribution Width 13.4 % (11.5-14.5); Red Blood Cell (RBC) Count 3.54 mill/uL (4.20-5.40); White Blood Cell (WBC) Count 25.2 thou/uL (4.8-10.8)
[2018-02-27 04:20] LABS: Albumin 3.1 g/dL (3.4-4.8); Anion Gap 19 mmol/L (10-20); BUN (Urea Nitrogen) 19 mg/dL (9.8-20.1); BUN/Creatinine Ratio 6.46; Calc. Creatinine Clearance 19 mL/min (70-130); Calcium 9.5 mg/dL (7.8-10.44); Carbon Dioxide 25 mmol/L (23-31); Chloride 98 mmol/L (98-107); Estimated GFR-MDRD 16; Glucose 145 mg/dL (80-115); Phosphorus 3.1 mg/dL (2.3-4.7); Potassium 3.7 mmol/L (3.5-5.1); Sodium 138 mmol/L (136-145)
[2018-02-27] MEDS: Acetaminophen 325 MG TAB PO PRN (05:07)
[2018-02-27] MEDS: Levothyroxine Sodium 75 MCG TAB PO SCH (05:08)
--- NOTE | 2018-02-27 05:09 | HP ---
REASON FOR ADMISSION: Hyperkalemia, possible sepsis, dehydration, intractable nausea, vomiting. HISTORY OF PRESENTING ILLNESS: Patient gives history of having severe nausea and vomiting from Sunday. She also had suprapubic area abdominal pain, which was colicky in nature off and on, got resolved on Sunday. Patient says she had 2 weeks of nausea, vomiting, and then got resolved on its own. She thought this was due to stomach flu. She started to have similar episode from Sunday. Please note, patient is a very poor historian. She also mentions that she had episodes of diarrhea and took 2 tablets of antidiarrheal medication on Sunday. The daughter who is here at bedside mentions that her symptoms started after having dinner on Sunday night. Patient has scheduled dialysis on Sunday, , Sunday, and missed her dialysis today, as she was not feeling good with severe nausea and vomiting. No complaints of fever, cough, or expectoration. No complaints of palpitations or PND. Patient has left above- knee amputation and is essentially wheelchair-bound. PAST MEDICAL AND SURGICAL HISTORY: History of end-stage renal disease on hemodialysis on Sunday, , Sunday, sees Dr. Miles for the same. She has had colostomy, urostomy, history of cervical cancer, history of nephrectomy , left above knee amputation, hypothyroidism, hypertension. CURRENT MEDICATIONS: Levothyroxine 100 mcg p.o. daily, gabapentin 300 mg p.o. every other night, Norvasc 5 mg p.o. daily, Sensipar 30 mg daily, sevelamer 800 mg p.o. 4 times daily. ALLERGIES: SULFA. PERSONAL HISTORY: Does not abuse alcohol or drugs. No history of smoking. FAMILY HISTORY: Mother at the age of 81 years. She has had history of diabetes and she also had nephrectomy for one kidney due to cancer. She has also had brain mass. Father at the age of 55 years. He has had history of coronary artery disease. REVIEW OF SYSTEMS: The following complete review of systems was negative, unless otherwise mentioned in the HPI or below: Constitutional: Weight loss or gain, ability to conduct usual activities. Skin: Rash, itching. Eyes: Double vision, pain. ENT/Mouth: Nose bleeding, neck stiffness, pain, tenderness. Cardiovascular: Palpitations, dyspnea on exertion, orthopnea. Respiratory: Shortness of breath, wheezing, cough, hemoptysis, fever, or night sweats. Gastrointestinal: Poor appetite, abdominal pain, heartburn, nausea, vomiting, constipation, or diarrhea. Genitourinary: Urgency, frequency, dysuria, nocturia. Musculoskeletal: Pain, swelling. Neurologic/Psychiatric: Anxiety, depression. Allergy/Immunologic: Skin rash, bleeding tendency. PHYSICAL EXAMINATION: GENERAL: The patient is a 67-year-old female who is currently not in any acute distress. VITAL SIGNS: Blood pressure 156/66, pulse 96 per minute, respiratory rate 18 per minute, temperature 99.6 degrees Fahrenheit, saturating 95% on room air. NECK: Supple. There is elevated JVD. HEENT: Extraocular muscles intact. Pupils reacting to light. Oral cavity mucous membranes are dry. No exudates or congestion. CARDIOVASCULAR SYSTEM: S1, S2 heard. Loud S2. RESPIRATORY SYSTEM: Air entry 1+ bilateral. No rales or rhonchi. ABDOMEN: Soft, bowel sounds heard. Patient has urostomy bag with high colored urine and colostomy bag as well. No rigidity or guarding. Bowel sounds are heard. EXTREMITIES: Patient has left above knee amputation. The stump is clean. Right lower extremity has no peripheral edema or calf tenderness. VASCULAR SYSTEM: Peripheral pulses 1+ bilateral. No ischemic ulcerations or gangrene. CENTRAL NERVOUS SYSTEM: No gross focal deficits seen. Patient is alert and oriented well. PSYCHIATRIC SYSTEM: Patient's mood is euthymic. No hallucinations or delusions. LABORATORY DATA AND X-RAY FINDINGS: EKG done shows normal sinus rhythm at 96 beats per minute. Had a white count of 29, H&H 11.9 and 35, platelet count is 348, MCV is 93 with 80% neutrophils and 3% bands. Sodium 130, potassium 7.1, serum bicarbonate 24, BUN 71, creatinine 9.1. Serum glucose 131. Liver enzymes are within normal limits. CK-MB 1.0. Troponin I 0.02. Albumin is 3.6. Acute abdominal series x-ray done shows gas filled loops of mildly dilated small bowel in the mid abdomen. Findings may represent ileus or enteritis. Low grade small-bowel obstruction could not be excluded. CLINICAL IMPRESSION AND PLAN: Patient will be admitted to telemetry for hyperkalemia with volume overload, end-stage renal disease and having missed her regular hemodialysis session yesterday morning. She will have emergent hemodialysis now. She was given hyperkalemia cocktail in the ER. Patient's nausea, vomiting, and diarrhea episode started from Sunday likely viral gastroenteritis versus. She has had similar episode around 2 weeks back, which resolved on its own. In view of this, we will obtain stool studies for culture and sensitivity and Clostridium difficile. She will be empirically placed on vancomycin and Zosyn. This will be based on dialysis protocol. She will be on normal saline at 60 mL per hour for now. We will await culture results. Dr. Miles has been consulted from ER and patient is going for dialysis now. We will continue her Sensipar and Renvela as before. We will watch for her electrolytes post-dialysis and in the morning. Please note, patient will be on clear liquid diet until her abdominal pain, nausea, and vomiting resolves. Please note, code status was discussed and she is a FULL CODE. I have seen and examined patient on 02/26/2018. SHERLY
[2018-02-27 08:48] LABS: Troponin I 0.149 ng/mL (< 0.028)
[2018-02-27] MEDS: Sevelamer Carbonate 800 MG TAB PO SCH ×4 (09:16→21:03)
[2018-02-27] MEDS: Heparin 5,000 UNITS/ML VIAL SC SCH ×2 (09:17→21:04)
[2018-02-27] MEDS: Docusate 100 MG CAP PO SCH ×2 (09:18→21:03)
[2018-02-27] MEDS: Cinacalcet HCl 30 MG TAB PO SCH (09:18)
[2018-02-27] MEDS: Famotidine/PF 20 mg/2ml Vial SLOW IVP SCH (09:48)
--- NOTE | 2018-02-27 10:00 | CON ---
DATE OF CONSULTATION: 02/27/2018 HISTORY: Ms. Castro is a 67-year-old white female with ESRD - on maintenance hemodialysis and admi tted for hyperkalemia. She also had an associated persistent nausea and vomiting as well as diarrhea . The patient did not report for dialysis on the day before. This morning she is feeling a little better. REVIEW OF SYSTEMS: No chest pain, no shortness of breath. Positive for diarrhea, no nausea, no vomi ting, no syncopal episode, no productive cough, no fever or chills. Appetite and energy level is dec reased. No joint pains, no new skin rash, no diplopia, no sore throat, no gross hematuria, no hemato chezia, no dysuria, no urinary frequency. HOME MEDICATIONS: Levothyroxine 100 mcg daily, gabapentin 300 mg every other night, Norvasc 5 mg silke [place], Sensipar 30 mg daily, sevelamer 800 mg 3 tabs t.i.d. PAST MEDICAL HISTORY: 1. 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 2. Hyperlipidemia. 3. Chronic obstructive pulmonary disease. 4. Peripheral vascular disease. 5. History of cervical stage I cancer in remission. PAST SURGICAL HISTORY: 1. Status post nephrectomy for obstructive uropathy. 2. Status post radiation of her cervical cancer. 3. Status post hysterectomy. 4. Status post pelvic exenteration of ovarian cancer. 5. Status post colostomy placement. 6. Status post bladder resection with ileal conduit. 7. Status post left BKA. 8. Status post angioplasty of the left femoral artery. SOCIAL HISTORY: The patient currently lives with her sister. She has 1 child. She is . St atus post multiple blood transfusions. Education; high school. 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 No alcohol, no IV drug abuse. ALLERGIES: SULFA. TRAUMA: None. IMMUNIZATIONS: Up to date. HOSPITALIZATIONS: Please see past medical history. FAMILY HISTORY: No family history of ESRD. PHYSICAL EXAMINATION: VITAL SIGNS: Blood pressure is 133/60, heart rate 101, respiratory rate 17, pulse ox 95%, temperatur e 98.7. GENERAL: Awake, alert, comfortable, not in distress. SKIN: Adequate turgor. HEENT: Slightly pale conjunctivae, anicteric sclerae. NECK: No neck mass, no carotid bruits, no JVD. CHEST: No deformities. LUNGS: Clear breath sounds, no wheezing, no crackles. HEART: Normal sinus rhythm. No murmur, no gallops, no rubs. ABDOMEN: Globular, soft, nontender, no masses. She has a urostomy. EXTREMITIES: No edema, status post left BKA. NEUROLOGIC: Awake, oriented to 3 spheres. Moving all extremities. No tremors, no asterixis, no cori richard. MEDICATIONS: Review of her medications today noted she is on Zosyn 2.25 grams IV q.8h. and status po st vancomycin. LABORATORY: 02/27/2018 - White count 25.2, hemoglobin 11. Sodium 138, potassium 3.7, chloride 98, c arbon dioxide 25, BUN 19, creatinine 2.94, glucose 145, calcium 9.5, phosphorus 3.1, albumin 3.1. ASSESSMENT AND PLAN: 1. Hyperkalemia - resolved with hemodialysis. Initial potassium on admission was 7.1 and is now cur rently 3.7 2. End-stage renal disease. We will continue current hemodialysis regimen. My plan is to do a , , and Sunday dialysis. Fluid removal only as tolerated. She did not tolerate the heather lysis last night, her blood pressure dropped and we had to give her several liters of normal saline. 3. Elevated white count - the patient currently on empiric antibiotics. Blood culture has been done , results are currently pending. I agree with current management. Continue supportive care.
--- NOTE | 2018-02-27 12:26 | EKG ---
Test Reason : Blood Pressure : / mmHG Vent. Rate : 137 BPM Atrial Rate : 137 BPM P-R Int : 130 ms QRS Dur : 072 ms QT Int : 286 ms P-R-T Axes : 068 011 251 degrees QTc Int : 431 ms Sinus tachycardia Abnormal ECG Confirmed by NEELAM DEL CID ([id number]) on 02/27/2018 12:25:44 PM Referred By: ALEXIA Confirmed By:NEELAM DEL CID
--- NOTE | 2018-02-27 13:09 | PDOC.PN ---
- Subjective Encounter Start Date: 02/27/18 Encounter Start Time: 13:09 Admitted overnight for presumed sepsis. Had hyperkalemia which resolved with HD. Code Thor also called for hypotension which resolved with IV fluids. - Objective Resuscitation Status: Resuscitation Status FULL:Full Resuscitation MAR Reviewed: Yes Vital Signs & Weight: Vital Signs (12 hours) Temp Pulse Pulse Pulse Pulse Pulse Pulse 02/27/18 11:17 99.1 F 87 02/27/18 08:30 98.8 F 02/27/18 07:05 101 H 02/27/18 04:10 98.7 F 111 H 02/27/18 04:00 98.7 F 111 H 02/27/18 02:51 136 H 137 H 135 H 123 H 118 H 02/27/18 01:32 105 H Resp BP BP BP BP BP BP 02/27/18 11:17 17 153/66 H 02/27/18 08:30 02/27/18 07:05 17 133/60 02/27/18 04:10 18 02/27/18 04:00 18 145/61 H 02/27/18 02:51 69/37 L 94/53 L 91/44 L 97/43 L 132/118 H 02/27/18 01:32 18 142/65 H Pulse Ox 02/27/18 11:17 97 02/27/18 08:30 02/27/18 07:05 95 02/27/18 04:10 100 02/27/18 04:00 100 02/27/18 02:51 02/27/18 01:32 Weight Admit Weight 145 lb 8.081 oz Weight 152 lb 1.903 oz I&O: 02/26/18 02/27/18 02/28/18 06:59 06:59 06:59 Intake Total 300 Output Total 70 Balance 230 Result Diagrams: 02/27/18 02:59 02/27/18 02:59 Additional Labs: Accuchecks 02/27/18 02:54 POC Glucose 106 Phys Exam - Physical Examination Constitutional: NAD HEENT: moist MMs, sclera anicteric, oral pharynx no lesions Neck: supple, full ROM Respiratory: no wheezing, no rales, no rhonchi, clear to auscultation bilateral Cardiovascular: RRR, no significant murmur, no rub Gastrointestinal: soft, non-tender, no distention, positive bowel sounds Neurological: non-focal Skin: no rash, normal turgor Dx/Plan (1) Sepsis Code(s): A41.9 - SEPSIS, UNSPECIFIED ORGANISM Status: Suspected Qualifiers: Sepsis type: sepsis due to unspecified organism Qualified Code(s): A41.9 - Sepsis, unspecified organism (2) Hypotension Status: Acute Qualifiers: Hypotension type: orthostatic hypotension Qualified Code(s): I95.1 - Orthostatic hypotension (3) ESRD (end stage renal disease) on dialysis Code(s): N18.6 - END STAGE RENAL DISEASE; Z99.2 - DEPENDENCE ON RENAL DIALYSIS Status: Chronic (4) Hyperkalemia Code(s): E87.5 - HYPERKALEMIA Status: Resolved (5) HTN (hypertension) Code(s): I10 - ESSENTIAL (PRIMARY) HYPERTENSION Status: Chronic Qualifiers: Hypertension type: essential hypertension Qualified Code(s): I10 - Essential (primary) hypertension (6) HLD (hyperlipidemia) Code(s): E78.5 - HYPERLIPIDEMIA, UNSPECIFIED Status: Chronic Qualifiers: Hyperlipidemia type: unspecified Qualified Code(s): E78.5 - Hyperlipidemia , unspecified (7) Hypothyroidism Code(s): E03.9 - HYPOTHYROIDISM, UNSPECIFIED Status: Chronic Qualifiers: Hypothyroidism type: unspecified Qualified Code(s): E03.9 - Hypothyroidism , unspecified (8) Above knee amputation of left lower extremity Code(s): Z89.612 - ACQUIRED ABSENCE OF LEFT LEG ABOVE KNEE Status: Chronic - Plan cont current plan of care, continue antibiotics, out of bed/ambulate, DVT proph w/lovenox Continue antibiotics HD per nephrology f/u blood cultures Review of Systems - Medications/Allergies Allergies/Adverse Reactions: Allergies Allergy/AdvReac Type Severity Reaction Status Date / Time Sulfa (Sulfonamide Allergy Verified 02/27/18 01:35 Antibiotics) Medications: Current Medications Acetaminophen (Tylenol) 650 mg PO Q4H PRN PRN Reason: Headache/Fever or Pain Last Admin: 02/27/18 05:07 Dose: 650 mg Cinacalcet (Sensipar) 30 mg PO DAILY [facility] Last Admin: 02/27/18 09:18 Dose: 30 mg Docusate Sodium (Colace) 100 mg PO BID [facility] Last Admin: 02/27/18 09:18 Dose: Not Given Famotidine (Pepcid) 20 mg SLOW IVP DAILY [facility] Last Admin: 02/27/18 09:48 Dose: 20 mg Guaifenesin/Dextromethorphan (Robitussin Dm) 15 ml PO Q4H PRN PRN Reason: Cough Heparin Sodium (Porcine) (Heparin) 5,000 units SC BID [facility] Last Admin: 02/27/18 09:17 Dose: 5,000 units Sodium Chloride (Normal Saline 0.9%) 1,000 mls @ 60 mls/hr IV .[id number] [facility] Last Admin: 02/27/18 05:09 Dose: 1,000 mls Piperacillin Sod/Tazobactam (Sod 2.25 gm/ Sodium Chloride) 100 mls @ 200 mls/ hr IVPB 0100,0900,1700 [facility] Last Admin: 02/27/18 09:17 Dose: 100 mls Vancomycin HCl 1 gm/ Device 200 mls @ 200 mls/hr IVPB [facility] Vancomycin HCl 750 mg/ Sodium (Chloride) 250 mls @ 250 mls/hr IVPB [facility] Vancomycin HCl 500 mg/ Sodium (Chloride) 100 mls @ 100 mls/hr IVPB [facility] Vancomycin HCl 250 mg/ Sodium (Chloride) 100 mls @ 100 mls/hr IVPB [facility] Levothyroxine Sodium (Synthroid) 75 mcg PO 0600 [facility] Last Admin: 02/27/18 05:08 Dose: 75 mcg Hold Vancomycin For (Level >20) 0 each FS .AT DIALYSIS [facility] Ondansetron HCl (Zofran) 4 mg IVP Q6H PRN PRN Reason: Nausea/Vomiting Sevelamer Carbonate (Renvela) 800 mg PO QID-[facility] Last Admin: 02/27/18 11:19 Dose: Not Given
[2018-02-27] MEDS: Simethicone Chewable 80 MG TAB PO PRN ×2 (15:23→21:04)
[2018-02-27] MEDS ORDERED: Milk Of Magnesia 30 ML UDCUP PO PRN (18:08)
[2018-02-27] MEDS ORDERED: cloNIDine 0.1 MG TAB PO PRN (20:31)
[2018-02-27] MEDS ORDERED: Amlodipine 5 MG TAB PO SCH (20:45)
[2018-02-27] MEDS ORDERED: VANCOMYCIN HCL IVPB ONE (23:46)
[2018-02-27] MEDS ORDERED: SODIUM CHLORIDE 0.9% IVPB ONE (23:46)
[2018-02-28] MEDS: Piperacillin/Tazobactam 2.25 GM in Sodium Chloride 0.9% 100 ML IVPB SCH ×3 (02:40→17:50)
[2018-02-28] MEDS: Levothyroxine Sodium 75 MCG TAB PO SCH (05:42)
[2018-02-28 06:03] LABS: ALT (SGPT) 9 U/L (8-55); AST (SGOT) 10 U/L (5-34); Albumin 3.2 g/dL (3.4-4.8); Alkaline Phosphatase 90 U/L (40-150); Anion Gap 18 mmol/L (10-20); BUN (Urea Nitrogen) 39 mg/dL (9.8-20.1); Bilirubin, Total 0.9 mg/dL (0.2-1.2); Calc. Creatinine Clearance 11 mL/min (70-130); Calcium 9.5 mg/dL (7.8-10.44); Carbon Dioxide 31 mmol/L (23-31); Chloride 89 mmol/L (98-107); Estimated GFR-MDRD 8; Globulin 2.7 g/dL (2.4-3.5); Glucose 115 mg/dL (80-115); Potassium 5.1 mmol/L (3.5-5.1); Protein, Total 5.9 g/dL (6.0-8.3); Sodium 133 mmol/L (136-145)
[2018-02-28 07:46] LABS: Vancomycin, Random 21.4 ug/mL (See Comment)
[2018-02-28] MEDS: Ondansetron HCl/PF 4 MG/2 ML Vial IVP PRN (09:57)
--- NOTE | 2018-02-28 10:47 | PRG ---
DATE OF SERVICE: 02/28/2018 SUBJECTIVE: Ms. Castro is a 67-year-old white female who was admitted for an abdominal pain as wel l as for diarrhea. During the initial evaluation, she was noted to be hyperkalemic. She received em ergent hemodialysis at that time. This morning, she is feeling better. Please note that she is unde rgoing hemodialysis today. I am at the bedside supervising her dialysis. She voices no chest pain o r shortness of breath. She is still feeling tired. At the same time, the patient is being treated with empiric antibiotics for possible infection. No o ther complaints today, no chest pain or shortness of breath. OBJECTIVE: VITAL SIGNS: Blood pressure 175/72, heart rate 95, respiratory rate 18, temperature 98.7, pulse ox 9 5%. GENERAL: Awake, supine, comfortable, not in distress. SKIN: Adequate turgor. HEENT: She has pinkish conjunctivae, anicteric sclerae. NECK: No neck mass, no carotid bruits, no JVD. CHEST: No deformities. LUNGS: Clear breath sounds, no wheezing, no crackles. HEART: Normal sinus rhythm. No murmur, no gallops or rubs. ABDOMEN: Globular, soft, nontender, no masses. EXTREMITIES: No edema, no deformities. MEDICATIONS: Of 02/28/2018 was reviewed. LABORATORY DATA: Of 02/28/2018, sodium 133, potassium 5.1, chloride 89, carbon dioxide 81, BUN 39, c reatinine 5.4, glucose 115. AST 10, ALT 9, albumin 3.2. ASSESSMENT AND PLAN: 1. Leukocytosis - on empiric IV antibiotics. Blood culture so far is negative growth to date. Stoo ls were also negative. Continue supportive care. 2. End-stage renal disease, stable. Continuing Sunday, , and Sunday dialysis regimen. A gain, fluid removal only as tolerated. During her initial dialysis on admission, she became hypotens dione and was given volume repletion. 3. Hyperkalemia, resolved with dialysis.
--- NOTE | 2018-02-28 11:02 | PDOC.PN ---
- Subjective Encounter Start Date: 02/28/18 Encounter Start Time: 11:04 PAtient seen and examined following admission for suspected sepsis. Feels much better and will be dialyzed today. No acute events overnight. - Objective Resuscitation Status: Resuscitation Status FULL:Full Resuscitation MAR Reviewed: Yes Vital Signs & Weight: Vital Signs (12 hours) Temp Pulse Resp BP BP Pulse Ox 02/28/18 09:42 98.7 F 92 18 02/28/18 05:48 92 175/72 H 02/28/18 04:16 173/73 H 02/28/18 04:00 98.7 F 95 18 172/73 H 95 02/27/18 23:32 99.4 F 99 16 166/73 H 92 L Weight Admit Weight 145 lb 8.081 oz Weight 157 lb 1.143 oz I&O: 02/27/18 02/28/18 03/01/18 06:59 06:59 06:59 Intake Total 300 480 Output Total 70 100 Balance 230 380 Result Diagrams: 02/27/18 02:59 02/28/18 04:39 Phys Exam - Physical Examination Constitutional: NAD HEENT: moist MMs, sclera anicteric, oral pharynx no lesions Neck: supple, full ROM Respiratory: no wheezing, no rales, no rhonchi, clear to auscultation bilateral Cardiovascular: RRR, no significant murmur, no rub Musculoskeletal: no edema Neurological: non-focal Psychiatric: normal affect, A&O x 3 Dx/Plan (1) Sepsis Code(s): A41.9 - SEPSIS, UNSPECIFIED ORGANISM Status: Suspected Qualifiers: Sepsis type: sepsis due to unspecified organism Qualified Code(s): A41.9 - Sepsis, unspecified organism Comment: Cultures negative so far. Improved. Unlikely pt had sepsis. More likely was volume depleted. Will f/u w blood cultures. Continue Abx for today. (2) Hypotension Status: Resolved Qualifiers: Hypotension type: orthostatic hypotension Qualified Code(s): I95.1 - Orthostatic hypotension (3) ESRD (end stage renal disease) on dialysis Code(s): N18.6 - END STAGE RENAL DISEASE; Z99.2 - DEPENDENCE ON RENAL DIALYSIS Status: Chronic (4) HTN (hypertension) Code(s): I10 - ESSENTIAL (PRIMARY) HYPERTENSION Status: Chronic Qualifiers: Hypertension type: essential hypertension Qualified Code(s): I10 - Essential (primary) hypertension (5) HLD (hyperlipidemia) Code(s): E78.5 - HYPERLIPIDEMIA, UNSPECIFIED Status: Chronic Qualifiers: Hyperlipidemia type: unspecified Qualified Code(s): E78.5 - Hyperlipidemia , unspecified (6) Hypothyroidism Code(s): E03.9 - HYPOTHYROIDISM, UNSPECIFIED Status: Chronic Qualifiers: Hypothyroidism type: unspecified Qualified Code(s): E03.9 - Hypothyroidism , unspecified (7) Above knee amputation of left lower extremity Code(s): Z89.612 - ACQUIRED ABSENCE OF LEFT LEG ABOVE KNEE Status: Chronic - Plan cont current plan of care, continue antibiotics, out of bed/ambulate * . Review of Systems - Medications/Allergies Allergies/Adverse Reactions: Allergies Allergy/AdvReac Type Severity Reaction Status Date / Time Sulfa (Sulfonamide Allergy Verified 02/27/18 01:35 Antibiotics) Medications: Current Medications Acetaminophen (Tylenol) 650 mg PO Q4H PRN PRN Reason: Headache/Fever or Pain Last Admin: 02/27/18 05:07 Dose: 650 mg Amlodipine Besylate (Norvasc) 5 mg PO DAILY [facility] Cinacalcet (Sensipar) 30 mg PO DAILY [facility] Last Admin: 02/27/18 09:18 Dose: 30 mg Clonidine (Catapres) 0.1 mg PO Q4H PRN PRN Reason: SBP Greater Than 170 Last Admin: 02/28/18 04:16 Dose: 0.1 mg Docusate Sodium (Colace) 100 mg PO BID [facility] Last Admin: 02/27/18 21:03 Dose: 100 mg Famotidine (Pepcid) 20 mg SLOW IVP DAILY [facility] Last Admin: 02/27/18 09:48 Dose: 20 mg Guaifenesin/Dextromethorphan (Robitussin Dm) 15 ml PO Q4H PRN PRN Reason: Cough Heparin Sodium (Porcine) (Heparin) 5,000 units SC BID [facility] Last Admin: 02/27/18 21:04 Dose: 5,000 units Piperacillin Sod/Tazobactam (Sod 2.25 gm/ Sodium Chloride) 100 mls @ 200 mls/ hr IVPB 0100,0900,1700 [facility] Last Admin: 02/28/18 02:40 Dose: 100 mls Vancomycin HCl 1 gm/ Device 200 mls @ 200 mls/hr IVPB [facility] Vancomycin HCl 750 mg/ Sodium (Chloride) 250 mls @ 250 mls/hr IVPB [facility] Vancomycin HCl 500 mg/ Sodium (Chloride) 100 mls @ 100 mls/hr IVPB [facility] Vancomycin HCl 250 mg/ Sodium (Chloride) 100 mls @ 100 mls/hr IVPB [facility] Levothyroxine Sodium (Synthroid) 75 mcg PO 0600 [facility] Last Admin: 02/28/18 05:42 Dose: 75 mcg Magnesium Hydroxide (Milk Of Magnesium) 30 ml PO BID PRN PRN Reason: Constipation Last Admin: 02/27/18 18:38 Dose: 30 ml Hold Vancomycin For (Level >20) 0 each FS .AT DIALYSIS [facility] Ondansetron HCl (Zofran) 4 mg IVP Q6H PRN PRN Reason: Nausea/Vomiting Last Admin: 02/28/18 09:57 Dose: 4 mg Sevelamer Carbonate (Renvela) 800 mg PO QID-[facility] Last Admin: 02/27/18 21:03 Dose: 800 mg Simethicone (Mylicon Chewable) 80 mg PO [facility] PRN PRN Reason: Gas Pain Last Admin: 02/27/18 21:04 Dose: 80 mg
[2018-02-28] MEDS: Famotidine/PF 20 mg/2ml Vial SLOW IVP SCH (13:44)
[2018-02-28] MEDS: Cinacalcet HCl 30 MG TAB PO SCH (13:44)
[2018-02-28] MEDS: Docusate 100 MG CAP PO SCH ×2 (13:44→19:47)
[2018-02-28] MEDS: Sevelamer Carbonate 800 MG TAB PO SCH ×3 (13:44→19:47)
[2018-02-28] MEDS: Heparin 5,000 UNITS/ML VIAL SC SCH ×2 (13:44→21:02)
--- NOTE | 2018-02-28 15:00 | RAD ---
ABDOMEN 1 VIEW: HISTORY: Emesis. FINDINGS: Gas is apparent within the colon. Mildly distended gas-filled loops of small bowel are present throu ghout the abdomen. Extensive postoperative changes. Prominent arterial calcifications. Osseous str uctures are demineralized. Phleboliths are apparent within the pelvis. Circular opacity over the right abdomen likely represents an ostomy appliance. IMPRESSION: 1. Small bowel dilatation. Ileus versus distal small bowel obstruction must be considered. 2. Atherosclerosis. 3. Osteoporosis. POS: NATALI
[2018-02-28] MEDS ORDERED: Labetalol HCl 100 MG/20 ML VIAL SLOW IVP PRN (15:08)
[2018-02-28] MEDS ORDERED: hydrALAZINE 20 MG/ML VIAL SLOW IVP PRN (15:08)
[2018-02-28] MEDS: Amlodipine 5 MG TAB PO SCH (17:43)
[2018-03-01] MEDS: Piperacillin/Tazobactam 2.25 GM in Sodium Chloride 0.9% 100 ML IVPB SCH ×3 (01:21→17:14)
--- NOTE | 2018-03-01 02:12 | CON ---
DATE OF CONSULTATION: 02/28/2018 CONSULTING PHYSICIAN: Nick Higgins MD REASON FOR CONSULTATION: Possible small-bowel obstruction. HISTORY OF PRESENT ILLNESS: The patient is a very pleasant 67-year-old white female. She presented to the hospital a couple of days ago complaining of severe nausea and vomiting. She notes that as of now, she has had no output from her ileostomy for the past 4 days. This had been going on for 2 day s prior to her arrival. She notes a history of similar symptoms previously, which she attributed to a virus and resolved spontaneously. When she presented to the emergency room, she was noted to be ma rkedly hyperkalemic. Her potassium was 7.1. Her electrolytes were significantly abnormal. Her crea tinine was 9. The patient has been undergoing long-term hemodialysis. She was admitted and underwen t dialysis. Her electrolytes normalized quickly thereafter. It was noted, however, that her white b lood cell count was 29 upon arrival and it was still 25 yesterday. It was not checked today. She no stephen that she had some abdominal pain, but notes that now it seems to have largely resolved. The patient has a left-sided colostomy and a right-sided urostomy secondary to her pelvic exenteratio n for recurrent cervical cancer in approximately 1986. She has had no bowel obstruction problems sub sequent to that surgery that she is aware of. She apparently continued to vomit today and a nasogastric tube was placed a couple of hours ago. Abo ut 800 mL of fluid was removed. There is now only clear contents coming from her nasogastric tube. PAST MEDICAL HISTORY: 1. End-stage renal disease. 2. History of recurrent cervical cancer. 3. Hypothyroidism. 4. Hypertension. PAST SURGICAL HISTORY: 1. Cervical radiation for cervical cancer. 2. Pelvic exenteration in 1986 with right-sided urostomy, left-sided colostomy placement. 3. History of nephrectomy. 4. Left above-knee amputation. CURRENT MEDICATIONS: Levothyroxine, gabapentin, Norvasc, Sensipar, and sevelamer. ALLERGIES: SULFA. PERSONAL AND SOCIAL HISTORY: She is and lives with her sister. She has 1 child. Her daugh ters and sister are present at bedside. She denies any history of tobacco use and denies significant alcohol use. REVIEW OF SYSTEMS: Otherwise unremarkable. FAMILY HISTORY: Noncontributory. PHYSICAL EXAMINATION: VITAL SIGNS: Her temperature is 99.1, pulse is 98, blood pressure is 150/75. She has been afebrile during her hospitalization. She had mild tachycardia upon arrival, but this has been stable subseque ntly. HEAD, EARS, EYES, NOSE, AND THROAT: Unremarkable. NECK: Supple without mass or tenderness. LUNGS: Clear to auscultation throughout. CARDIAC: Regular rate and rhythm without murmur. ABDOMEN: Soft. There is no focal tenderness or guarding in any quadrant. As mentioned, she does recinos ve a right-sided urostomy and a left-sided colostomy. Bowel sounds are surprisingly normoactive in a ll quadrants. There is no evidence of tympanitic bowel sounds. EXTREMITIES: Unremarkable. LABORATORY DATA: As referenced above reveals leukocytosis with a white blood cell count of 25 yester day. Chemistry panel is consistent with renal disease with elevated creatinine and abnormal electrol ytes. Her albumin is low at 3.2. ASSESSMENT: Although it is possible that the patient has an ileus (of uncertain etiology), it seems more likely now that she has some degree of bowel obstruction. Given her normoactive bowel sounds, s he does not appear to have paralytic ileus. For now, I would recommend continuing nasogastric suctio n. I usually recommend bowel rest with nasogastric tube for at least 24 hours. Since this tube was just placed this evening, that would mean that we will need to continue this through tomorrow evening . I would thereafter recommend a Gastrografin small-bowel follow through, which would therefore be o rdered for Sunday morning, 03/02/2018. Depending upon the findings with her small-bowel follow thr ough, we may be able to advance her diet or she may require surgery. I have discussed all this in de tail with the patient and her family. They understand and agreed to proceed in this fashion.
[2018-03-01] MEDS: Levothyroxine Sodium 75 MCG TAB PO SCH ×2 (04:56→09:34)
[2018-03-01 05:30] LABS: ALT (SGPT) 8 U/L (8-55); AST (SGOT) 11 U/L (5-34); Alkaline Phosphatase 86 U/L (40-150); Anion Gap 18 mmol/L (10-20); BUN (Urea Nitrogen) 25 mg/dL (9.8-20.1); Bilirubin, Total 0.9 mg/dL (0.2-1.2); Calc. Creatinine Clearance 17 mL/min (70-130); Calcium 9.9 mg/dL (7.8-10.44); Carbon Dioxide 32 mmol/L (23-31); Chloride 93 mmol/L (98-107); Estimated GFR-MDRD 13; Glucose 82 mg/dL (80-115); Sodium 139 mmol/L (136-145)
[2018-03-01 07:25] LABS: #Lymphocytes 1.2 thou/uL (1.20-3.40); #Neutrophils 11.1 thou/uL (1.40-6.50); %Basophils 0.1 % (0.0-1.0); %Eosinophils 0.3 % (0.0-10.0); %Lymphocytes 9.3 % (21.0-51.0); %Monocytes 7.2 % (0.0-10.0); %Neutrophils 83.1 % (42.0-75.0); Hemoglobin 10.5 g/dL (12.0-16.0); Mean Corpuscular Hemoglobin 31.2 pg (27.0-31.0); Mean Corpuscular Volume 97.4 fl (81.0-99.0); Mean Platelet Volume 6.7 fL (7.4-10.4); Platelet Count 273 thou/uL (130-400); RBC Distribution Width 13.2 % (11.5-14.5); Red Blood Cell (RBC) Count 3.37 mill/uL (4.20-5.40); White Blood Cell (WBC) Count 13.3 thou/uL (4.8-10.8)
[2018-03-01] MEDS: Heparin 5,000 UNITS/ML VIAL SC SCH ×2 (08:21→20:45)
[2018-03-01] MEDS: Cinacalcet HCl 30 MG TAB PO SCH ×2 (08:22→09:32)
[2018-03-01] MEDS: Amlodipine 5 MG TAB PO SCH ×2 (08:22→09:32)
[2018-03-01] MEDS: Docusate 100 MG CAP PO SCH ×3 (08:22→20:44)
[2018-03-01] MEDS: Sevelamer Carbonate 800 MG TAB PO SCH ×4 (08:22→20:53)
--- NOTE | 2018-03-01 08:41 | PRG ---
DATE OF SERVICE: 03/01/2018 SUBJECTIVE: Ms. Castro is hospital day #4 in treatment of nausea, vomiting, possible bowel obstruc tion. I was consulted yesterday and a nasogastric tube was placed yesterday after she had persistent vomiting. She has rested well overnight. It appears that at least a liter of aspirate came out of her nasogastric tube overnight. She denies any abdominal pain. She denies any ostomy output. PHYSICAL EXAMINATION: VITAL SIGNS: She is afebrile with a maximum temperature of 99.7 at about midnight. Pulse is 87, blo od pressure 167/71. LUNGS: Clear to auscultation. ABDOMEN: Soft. Bowel sounds are normoactive without any tympany. LABORATORY STUDIES: Her white blood cell count dropped from 25, a couple of days ago down to 13. He r hemoglobin is stable at 10.5. She has significant electrolyte abnormalities related to her dialysi s and in renal failure. ASSESSMENT: She appears to be stable. As per my initial recommendation, I would recommend continued nasogastric suction for the rest of today and then tomorrow morning obtain a Gastrografin small-dyllan l follow through. If this goes through and she has significant ostomy output, then I would anticipat e that she would be able to have her nasogastric tube removed and advance her diet. If it does not g o through, then she may in fact have a persistent obstructive process and may require surgery. This may be performed over the weekend if necessary or I may need to address it when I return on Sunday.
--- NOTE | 2018-03-01 10:17 | PDOC.PN ---
- Subjective Encounter Start Date: 03/01/18 Encounter Start Time: 10:23 Patient seen and examined following admission for presumed sepsis w hypotension. Also c/o nausea, vomiting and constipation since Sunday. Abdomen series showed suspected bowel obstruction. General surgery on board. - Objective Resuscitation Status: Resuscitation Status FULL:Full Resuscitation MAR Reviewed: Yes Vital Signs & Weight: Vital Signs (12 hours) Temp Pulse Resp BP BP Pulse Ox 03/01/18 09:32 87 165/71 H 03/01/18 08:00 99.1 F 87 16 90 L 03/01/18 07:16 99.1 F 87 16 167/71 H 92 L 03/01/18 04:00 99.1 F 84 18 155/69 H 94 L 03/01/18 00:00 99.7 F H 90 18 149/71 H 92 L Weight Admit Weight 145 lb 8.081 oz Weight 155 lb 6 oz I&O: 02/28/18 03/01/18 03/02/18 06:59 06:59 06:59 Intake Total 480 250 Output Total 100 1650 Balance 380 -1400 Result Diagrams: 03/01/18 05:04 03/01/18 05:04 Phys Exam - Physical Examination Constitutional: NAD HEENT: moist MMs, sclera anicteric, oral pharynx no lesions NG tube in place Neck: supple, full ROM Respiratory: no wheezing, no rales, no rhonchi, clear to auscultation bilateral Cardiovascular: RRR, no rub Gastrointestinal: soft, non-tender, no distention, positive bowel sounds Musculoskeletal: no edema, pulses present Neurological: non-focal Psychiatric: normal affect, A&O x 3 Skin: no rash, normal turgor Dx/Plan (1) Bowel obstruction Code(s): K56.609 - UNSP INTESTNL OBST, UNSP TO PARTIAL VERSUS COMPLETE OBST Status: Acute Qualifiers: Intestinal obstruction type: unspecified Intestinal obstruction extent: unspecified extent Qualified Code(s): K56.609 - Unspecified intestinal obstruction, unspecified as to partial versus complete obstruction Comment: Improved. As seen on abdominal series. NG tube placed 02/28 w intermittent suction. Will have gastrograffin small bowel follow through. (2) Sepsis Code(s): A41.9 - SEPSIS, UNSPECIFIED ORGANISM Status: Suspected Qualifiers: Sepsis type: sepsis due to unspecified organism Qualified Code(s): A41.9 - Sepsis, unspecified organism Comment: Cultures negative so far. Improved. Will f/u w blood cultures- negative so far. Will d/c Vancomycin and continue Zosyn for today. as volume depleted on admission and likely not 2/2 sepsis. (3) ESRD (end stage renal disease) on dialysis Code(s): N18.6 - END STAGE RENAL DISEASE; Z99.2 - DEPENDENCE ON RENAL DIALYSIS Status: Chronic (4) HTN (hypertension) Code(s): I10 - ESSENTIAL (PRIMARY) HYPERTENSION Status: Chronic Qualifiers: Hypertension type: essential hypertension Qualified Code(s): I10 - Essential (primary) hypertension Comment: Fair control. Patient NPO 2/2/ obstructoion so currently on parenteral BP meds. (5) HLD (hyperlipidemia) Code(s): E78.5 - HYPERLIPIDEMIA, UNSPECIFIED Status: Chronic Qualifiers: Hyperlipidemia type: unspecified Qualified Code(s): E78.5 - Hyperlipidemia , unspecified (6) Hypothyroidism Code(s): E03.9 - HYPOTHYROIDISM, UNSPECIFIED Status: Chronic Qualifiers: Hypothyroidism type: unspecified Qualified Code(s): E03.9 - Hypothyroidism , unspecified (7) Above knee amputation of left lower extremity Code(s): Z89.612 - ACQUIRED ABSENCE OF LEFT LEG ABOVE KNEE Status: Chronic - Plan cont current plan of care, continue antibiotics, DVT proph w/heparin Continue NG tube w suction intermittently Gastrograffin Small bowel follow through today. Might need surgery depending on results. General surgery on board. recs appreciated. Continue Zosyn due to marked leucocytosis. f/u culture results. Review of Systems - Medications/Allergies Allergies/Adverse Reactions: Allergies Allergy/AdvReac Type Severity Reaction Status Date / Time Sulfa (Sulfonamide Allergy Verified 02/27/18 01:35 Antibiotics) Medications: Current Medications Acetaminophen (Tylenol) 650 mg PO Q4H PRN PRN Reason: Headache/Fever or Pain Last Admin: 02/27/18 05:07 Dose: 650 mg Amlodipine Besylate (Norvasc) 5 mg PO DAILY [facility] Last Admin: 03/01/18 09:32 Dose: 5 mg Cinacalcet (Sensipar) 30 mg PO DAILY [facility] Last Admin: 03/01/18 09:32 Dose: 30 mg Clonidine (Catapres) 0.1 mg PO Q4H PRN PRN Reason: SBP Greater Than 170 Last Admin: 02/28/18 04:16 Dose: 0.1 mg Docusate Sodium (Colace) 100 mg PO BID [facility] Last Admin: 03/01/18 09:32 Dose: 100 mg Famotidine (Pepcid) 20 mg SLOW IVP DAILY [facility] Last Admin: 02/28/18 13:44 Dose: Not Given Guaifenesin/Dextromethorphan (Robitussin Dm) 15 ml PO Q4H PRN PRN Reason: Cough Heparin Sodium (Porcine) (Heparin) 5,000 units SC BID [facility] Last Admin: 03/01/18 08:21 Dose: 5,000 units Hydralazine HCl (Apresoline) 10 mg SLOW IVP Q4H PRN PRN Reason: SBP > 180 Piperacillin Sod/Tazobactam (Sod 2.25 gm/ Sodium Chloride) 100 mls @ 200 mls/ hr IVPB 0100,0900,1700 [facility] Last Admin: 03/01/18 08:20 Dose: 100 mls Labetalol HCl (Normodyne) 10 mg SLOW IVP Q4H PRN PRN Reason: SBP Greater Than 180 Levothyroxine Sodium (Synthroid) 75 mcg PO 0600 [facility] Last Admin: 03/01/18 09:34 Dose: 75 mcg Magnesium Hydroxide (Milk Of Magnesium) 30 ml PO BID PRN PRN Reason: Constipation Last Admin: 02/27/18 18:38 Dose: 30 ml Ondansetron HCl (Zofran) 4 mg IVP Q6H PRN PRN Reason: Nausea/Vomiting Last Admin: 02/28/18 09:57 Dose: 4 mg Sevelamer Carbonate (Renvela) 800 mg PO QID-[facility] Last Admin: 03/01/18 08:22 Dose: Not Given Simethicone (Mylicon Chewable) 80 mg PO [facility] PRN PRN Reason: Gas Pain Last Admin: 02/27/18 21:04 Dose: 80 mg
[2018-03-01] MEDS: Famotidine/PF 20 mg/2ml Vial SLOW IVP SCH (10:59)
[2018-03-02] MEDS: Piperacillin/Tazobactam 2.25 GM in Sodium Chloride 0.9% 100 ML IVPB SCH ×3 (01:19→20:58)
[2018-03-02 04:30] LABS: ALT (SGPT) 7 U/L (8-55); AST (SGOT) 12 U/L (5-34); Albumin 2.9 g/dL (3.4-4.8); Alkaline Phosphatase 89 U/L (40-150); Anion Gap 26 mmol/L (10-20); BUN (Urea Nitrogen) 44 mg/dL (9.8-20.1); Bilirubin, Total 0.8 mg/dL (0.2-1.2); Calc. Creatinine Clearance 12 mL/min (70-130); Calcium 9.6 mg/dL (7.8-10.44); Carbon Dioxide 23 mmol/L (23-31); Chloride 93 mmol/L (98-107); Estimated GFR-MDRD 9; Globulin 2.9 g/dL (2.4-3.5); Glucose 68 mg/dL (80-115); Potassium 4.4 mmol/L (3.5-5.1); Protein, Total 5.8 g/dL (6.0-8.3); Sodium 138 mmol/L (136-145)
[2018-03-02] MEDS: Levothyroxine Sodium 75 MCG TAB PO SCH (05:52)
[2018-03-02] MEDS ORDERED: Dextrose 50% Abboject 50 ML SYRINGE SLOW IVP SCH (06:30)
[2018-03-02] MEDS: Acetaminophen 325 MG TAB PO PRN (08:12)
[2018-03-02] MEDS: Docusate 100 MG CAP PO SCH ×2 (08:12→20:59)
[2018-03-02] MEDS: Amlodipine 5 MG TAB PO SCH (08:12)
[2018-03-02] MEDS: Cinacalcet HCl 30 MG TAB PO SCH (08:13)
[2018-03-02] MEDS: Sevelamer Carbonate 800 MG TAB PO SCH ×4 (08:13→20:59)
[2018-03-02] MEDS: Famotidine/PF 20 mg/2ml Vial SLOW IVP SCH (09:17)
[2018-03-02] MEDS: Heparin 5,000 UNITS/ML VIAL SC SCH ×3 (09:24→20:59)
--- NOTE | 2018-03-02 10:43 | PDOC.PN ---
- Subjective Encounter Start Date: 03/02/18 Encounter Start Time: 07:40 Pt seen for followup re: bowel obstruction. Denies chest pain, shortness of breath, fevers or chills. - Objective Resuscitation Status: Resuscitation Status FULL:Full Resuscitation MAR Reviewed: Yes Vital Signs & Weight: Vital Signs (12 hours) Temp Pulse Resp BP BP Pulse Ox 03/02/18 08:12 87 157/68 H 03/02/18 07:48 100.1 F H 85 14 157/68 H 91 L 03/02/18 04:00 99.5 F 85 16 155/69 H 93 L 03/02/18 00:00 99.6 F 86 18 147/69 H 94 L Weight Admit Weight 145 lb 8.081 oz Weight 152 lb 4.8 oz I&O: 03/01/18 03/02/18 03/03/18 06:59 06:59 06:59 Intake Total 250 410 Output Total 1650 3610 Balance -1400 -3200 Result Diagrams: 03/05/18 05:05 03/05/18 05:05 Additional Labs: Accuchecks 03/02/18 03/02/18 07:54 06:07 POC Glucose 138 H 66 L Labs reviewed by me Phys Exam - Physical Examination Constitutional: NAD HEENT: moist MMs Neck: supple Respiratory: clear to auscultation bilateral Cardiovascular: RRR Gastrointestinal: soft, non-tender, positive bowel sounds L AKA Neurological: moves all 4 limbs Psychiatric: normal affect Dx/Plan (1) Bowel obstruction Code(s): K56.609 - UNSP INTESTNL OBST, UNSP TO PARTIAL VERSUS COMPLETE OBST Status: Acute Qualifiers: Intestinal obstruction type: unspecified Intestinal obstruction extent: unspecified extent Qualified Code(s): K56.609 - Unspecified intestinal obstruction, unspecified as to partial versus complete obstruction Comment: NG tube was clamped yesterday. Conservative management so far (2) Sepsis Code(s): A41.9 - SEPSIS, UNSPECIFIED ORGANISM Status: Suspected Qualifiers: Sepsis type: sepsis due to unspecified organism Qualified Code(s): A41.9 - Sepsis, unspecified organism Comment: Cultures negative so far. (3) ESRD (end stage renal disease) on dialysis Code(s): N18.6 - END STAGE RENAL DISEASE; Z99.2 - DEPENDENCE ON RENAL DIALYSIS Status: Chronic Comment: maintainance dialysis tomorrow (4) HLD (hyperlipidemia) Code(s): E78.5 - HYPERLIPIDEMIA, UNSPECIFIED Status: Chronic Qualifiers: Hyperlipidemia type: unspecified Qualified Code(s): E78.5 - Hyperlipidemia , unspecified (5) HTN (hypertension) Code(s): I10 - ESSENTIAL (PRIMARY) HYPERTENSION Status: Chronic Qualifiers: Hypertension type: essential hypertension Qualified Code(s): I10 - Essential (primary) hypertension Comment: On PRN IV hydralazine - Plan * . Review of Systems - Review of Systems Constitutional: negative: fever, chills, sweats, weakness, malaise Cardiovascular: negative: chest pain, palpitations, orthopnea, paroxysmal nocturnal dyspnea, edema, light headedness Gastrointestinal: negative: Nausea, Vomiting, Abdominal Pain, Diarrhea, Constipation, Melena, Hematochezia - Medications/Allergies Allergies/Adverse Reactions: Allergies Allergy/AdvReac Type Severity Reaction Status Date / Time Sulfa (Sulfonamide Allergy Verified 02/27/18 01:35 Antibiotics) Medications: Current Medications Acetaminophen (Tylenol) 650 mg PO Q4H PRN PRN Reason: Headache/Fever or Pain Last Admin: 03/02/18 08:12 Dose: 650 mg Amlodipine Besylate (Norvasc) 5 mg PO DAILY [facility] Last Admin: 03/02/18 08:12 Dose: 5 mg Cinacalcet (Sensipar) 30 mg PO DAILY [facility] Last Admin: 03/02/18 08:13 Dose: 30 mg Clonidine (Catapres) 0.1 mg PO Q4H PRN PRN Reason: SBP Greater Than 170 Last Admin: 02/28/18 04:16 Dose: 0.1 mg Docusate Sodium (Colace) 100 mg PO BID [facility] Last Admin: 03/02/18 08:12 Dose: 100 mg Famotidine (Pepcid) 20 mg SLOW IVP DAILY [facility] Last Admin: 03/02/18 09:17 Dose: 20 mg Guaifenesin/Dextromethorphan (Robitussin Dm) 15 ml PO Q4H PRN PRN Reason: Cough Heparin Sodium (Porcine) (Heparin) 5,000 units SC BID [facility] Last Admin: 03/02/18 09:24 Dose: 5,000 units Hydralazine HCl (Apresoline) 10 mg SLOW IVP Q4H PRN PRN Reason: SBP > 180 Piperacillin Sod/Tazobactam (Sod 2.25 gm/ Sodium Chloride) 100 mls @ 200 mls/ hr IVPB 0100,0900,1700 [facility] Last Admin: 03/02/18 09:17 Dose: 100 mls Labetalol HCl (Normodyne) 10 mg SLOW IVP Q4H PRN PRN Reason: SBP Greater Than 180 Levothyroxine Sodium (Synthroid) 75 mcg PO 0600 [facility] Last Admin: 03/02/18 05:52 Dose: 75 mcg Magnesium Hydroxide (Milk Of Magnesium) 30 ml PO BID PRN PRN Reason: Constipation Last Admin: 02/27/18 18:38 Dose: 30 ml Ondansetron HCl (Zofran) 4 mg IVP Q6H PRN PRN Reason: Nausea/Vomiting Last Admin: 02/28/18 09:57 Dose: 4 mg Sevelamer Carbonate (Renvela) 800 mg PO QID-[facility] Last Admin: 03/02/18 08:13 Dose: Not Given Simethicone (Mylicon Chewable) 80 mg PO HS PRN PRN Reason: Gas Pain Last Admin: 02/27/18 21:04 Dose: 80 mg
[2018-03-02] MEDS: Ondansetron HCl/PF 4 MG/2 ML Vial IVP PRN (10:57)
--- NOTE | 2018-03-02 11:27 | PRG ---
DATE OF SERVICE: 03/02/2018 ATTENDING PHYSICIAN: Dr. Holland Saxena. SUBJECTIVE: Ms. Castro is hospital day #5 and treatment of nausea, vomiting, possible bowel obstruction. Dr. [place] was consulted one day ago. An NG tube was placed to low intermittent wall suction. This morning, she has begun a small bowel follow through study. She reports that her abdominal pain is much less today than it has been. She does report passing flatus and small amount of stool into ostomy last p.m. OBJECTIVE: VITAL SIGNS: Temperature 100.1, pulse 85, respirations 14, O2 sat 91% on room air, blood pressure 157/68. GENERAL: A 67-year-old female lying in bed, in no acute distress. PULMONARY: Bilateral breath sounds clear. ABDOMEN: Soft, bowel sounds normal. Colostomy and ileostomy in place. LABORATORY DATA: Chemistry: Sodium 138, potassium 4.4, chloride 93, carbon dioxide 23, BUN 44, creatinine 5.02, glucose 68. Lactic acid 9.6, total bilirubin 0.8, AST 12, ALT 7, alkaline phosphatase 89, serum total protein 5.8, albumin 2.9. ASSESSMENT: 1. Admitted with sepsis with hypotension. 2. Nausea and vomiting with abdomen series concerning for small-bowel obstruction. NG tube placed to suction yesterday. 3. The patient with flatus and small amount of ostomy overnight. PLAN: Follow up on small bowel follow through today. If small bowel follow through normal, the patient may be able to have her nasogastric tube removed and try diet. This patient was reviewed with Dr. Saxena, who agrees with plan. [facility]
[2018-03-02 12:02] LABS: Band 5 % (5-11); Lymphocytes 12 % (21-51); MDiff Complete? YES; Mean Corpuscular HGB CONC 32.2 g/dL (32.0-36.0); Mean Corpuscular Hemoglobin 31.4 pg (27.0-31.0); Mean Corpuscular Volume 97.6 fl (81.0-99.0); Mean Platelet Volume 6.9 fL (7.4-10.4); Monocytes 4 % (0-10); Neutrophil 79 % (42-75); PLT Morphology Comment Appears Adequate; Platelet Count 257 thou/uL (130-400); RBC Distribution Width 13.1 % (11.5-14.5); White Blood Cell (WBC) Count 14.9 thou/uL (4.8-10.8)
[2018-03-02 12:03] LABS: RBC Morphology Normal
--- NOTE | 2018-03-02 12:29 | PRG ---
DATE OF SERVICE: 03/02/2018 SUBJECTIVE: Ms. Castro is a 67-year-old white female who was admitted for nausea, vomiting as well as diarrhea. She has been evaluated by Surgery for small bowel obstruction. Nasogastric tube has b een placed. She is currently undergoing a small bowel follow through. Recommendation by Surgery was a small bowel follow through with Gastrografin as well as placing her on an NG tube. We are followi ng her up for her maintenance hemodialysis. I have scheduled her for regular dialysis today. No oth er complaints. OBJECTIVE: VITAL SIGNS: Blood pressure is 157/68, temperature is 100.1, heart rate 87, respiratory rate 14, pul se ox 95%. GENERAL: Noted to be awake, alert, comfortable, not in overt distress. SKIN: Adequate turgor. HEENT: Slightly pale conjunctivae, anicteric sclerae. NECK: No neck mass, no carotid bruits, no JVD. CHEST: No deformities. LUNGS: Clear breath sounds. No wheezing, no crackles. HEART: Normal sinus rhythm. No murmur, no gallops, no rubs. ABDOMEN: Globular, soft, nontender, no masses. EXTREMITIES: No edema, no deformities. MEDICATIONS: Of 03/02/2018 was reviewed. LABORATORY: Of 03/01/2018, white count 13.2, hemoglobin 10.5. On 03/02/2018,sodium 128, potassium 4 .4, chloride 93, carbon dioxide 23, BUN 44, creatinine 5.02, albumin 2.9. ASSESSMENT AND PLAN: 1. Fever. The patient is currently on empiric IV antibiotics. She also was noted to have elevated white count initially. Blood culture has been negative growth to date. 2. End-stage renal disease. Continue current hemodialysis regimen. Fluid removal only as tolerated . 3. Small-bowel obstruction. Surgery is following. Awaiting results of the small bowel follow mitchelu . Overall, agree with current management. Continue supportive care.
[2018-03-02] MEDS: Dextrose 5%-Lactated Ringers 1,000 ML IV SCH ×2 (13:37→21:00)
--- NOTE | 2018-03-02 14:09 | PRG ---
DATE OF SERVICE: 03/02/2018 SUBJECTIVE: I am seeing Ms. Castro on behalf of Dr. [place]. This 67-year-old woman was admitted on 02/26/2018 with onset of abdominal pain. Diagnosis of small-bowel obstruction was rendered. Fe ent was then placed on bowel rest with nasogastric tube decompression and IV hydration initiated. She did record passage of small amount of flatus and liquid stool through the ileostomy overnight. A small bowel follow through was initiated today. Two hours, there is slow progression; however, the patient has developed profound abdominal pain associated with multiple episodes of nausea and vomitin g. On examination, she rates her pain at 10/10. She is status post bilious emesis. I replaced the nasogastric tube to suction and immediately evacuated 800 mL of bilious effluent. Abdominal pain is resolving, now rated at 7/10. She has remained hemodynamically stable and afebrile with maximum temp erature of 100.1 degrees Fahrenheit within the last 24 hours. Urinary output is adequate. IMPRESSION: Acute small-bowel obstruction secondary to adhesions. PLAN: 1. Resume bowel rest, nasogastric tube decompression and IV hydration. 2. We will continue with serial physical examination. There is no acute surgical indication at this time.
--- NOTE | 2018-03-02 14:11 | RAD ---
SMALL BOWEL FOLLOW THROUGH: Date: 03/02/18 HISTORY: Small bowel obstruction. FINDINGS: Preliminary city assessor film shows a NG tube in place. Surgical clips are noted in the abdomen. Extensive v ascular calcifications are seen. There are dilated small bowel loops with some air within the colon. There is what appears to be a right-sided colostomy. Films were obtained at 3 hours. Patient was vomiting and was going to be put back to suction. In fidel tion, evidently the patient is going to dialysis, so no additional imaging will be performed at this time. At 3 hours, there are dilated small bowel loops, but no contrast within the colon. IMPRESSION: Findings consistent with small bowel obstruction. The patient is evidently going to dialysis at this time. A delayed KUB after dialysis may be helpful in further evaluation of transit of the Gastrografi n. Contrast is only seen to what is felt to be mid ileal level at this time. POS: [facility]
[2018-03-03] MEDS: Levothyroxine Sodium 75 MCG TAB PO SCH (05:31)
[2018-03-03] MEDS: Piperacillin/Tazobactam 2.25 GM in Sodium Chloride 0.9% 100 ML IVPB SCH ×4 (05:31→21:14)
[2018-03-03 05:47] LABS: ALT (SGPT) 7 U/L (8-55); AST (SGOT) 8 U/L (5-34); Albumin 3.1 g/dL (3.4-4.8); Alkaline Phosphatase 100 U/L (40-150); Anion Gap 17 mmol/L (10-20); BUN (Urea Nitrogen) 15 mg/dL (9.8-20.1); Bilirubin, Total 0.8 mg/dL (0.2-1.2); Calc. Creatinine Clearance 20 mL/min (70-130); Calcium 9.9 mg/dL (7.8-10.44); Carbon Dioxide 32 mmol/L (23-31); Chloride 92 mmol/L (98-107); Estimated GFR-MDRD 18; Globulin 3.3 g/dL (2.4-3.5); Glucose 185 mg/dL (80-115); Potassium 3.1 mmol/L (3.5-5.1); Protein, Total 6.4 g/dL (6.0-8.3); Sodium 138 mmol/L (136-145)
[2018-03-03 05:51] LABS: Band 11 % (5-11); Hemoglobin 10.7 g/dL (12.0-16.0); Lymphocytes 11 % (21-51); MDiff Complete? YES; Mean Corpuscular HGB CONC 32.8 g/dL (32.0-36.0); Mean Corpuscular Hemoglobin 31.3 pg (27.0-31.0); Mean Corpuscular Volume 95.4 fl (81.0-99.0); Mean Platelet Volume 6.7 fL (7.4-10.4); Monocytes 5 % (0-10); Neutrophil 73 % (42-75); Nucleated RBC 1 % (0); PLT Morphology Comment Appears Adequate; Platelet Count 287 thou/uL (130-400); RBC Distribution Width 13.1 % (11.5-14.5); Red Blood Cell (RBC) Count 3.42 mill/uL (4.20-5.40); White Blood Cell (WBC) Count 13.1 thou/uL (4.8-10.8)
[2018-03-03] MEDS: Docusate 100 MG CAP PO SCH ×2 (09:00→20:23)
[2018-03-03] MEDS: Sevelamer Carbonate 800 MG TAB PO SCH ×4 (09:00→20:23)
[2018-03-03] MEDS: Amlodipine 5 MG TAB PO SCH (09:00)
[2018-03-03] MEDS: Cinacalcet HCl 30 MG TAB PO SCH (09:00)
[2018-03-03] MEDS: Heparin 5,000 UNITS/ML VIAL SC SCH ×2 (09:00→20:23)
[2018-03-03] MEDS: Dextrose 5%-Lactated Ringers 1,000 ML IV SCH ×2 (09:10→20:23)
[2018-03-03] MEDS: Famotidine/PF 20 mg/2ml Vial SLOW IVP SCH (09:38)
--- NOTE | 2018-03-03 10:13 | PDOC.PN ---
- Subjective Encounter Start Date: 03/03/18 Encounter Start Time: 08:20 Pt seen for followup re: bowel obstruction. Denies chest pain, shortness of breath, fevers or chills. - Objective Resuscitation Status: Resuscitation Status FULL:Full Resuscitation MAR Reviewed: Yes Vital Signs & Weight: Vital Signs (12 hours) Temp Pulse Resp BP BP Pulse Ox 03/03/18 09:00 78 150/72 H 03/03/18 07:41 99.7 F H 78 16 150/72 H 96 03/03/18 04:00 98.9 F 78 18 153/67 H 93 L 03/03/18 00:00 98.8 F 83 16 147/67 H 93 L Weight Admit Weight 145 lb 8.081 oz Weight 140 lb I&O: 03/02/18 03/03/18 03/04/18 06:59 06:59 06:59 Intake Total 410 1414 Output Total 3610 3320 Balance -3200 -1906 Result Diagrams: 03/05/18 05:05 03/05/18 05:05 Additional Labs: Accuchecks 03/03/18 05:00 POC Glucose 121 H Labs reviewed by me Phys Exam - Physical Examination Constitutional: NAD HEENT: moist MMs Neck: supple Respiratory: clear to auscultation bilateral Cardiovascular: RRR Gastrointestinal: soft, non-tender L AKA Neurological: moves all 4 limbs Psychiatric: normal affect Dx/Plan (1) Bowel obstruction Code(s): K56.609 - UNSP INTESTNL OBST, UNSP TO PARTIAL VERSUS COMPLETE OBST Status: Acute Qualifiers: Intestinal obstruction type: unspecified Intestinal obstruction extent: unspecified extent Qualified Code(s): K56.609 - Unspecified intestinal obstruction, unspecified as to partial versus complete obstruction Comment: NG tube was clamped yesterday. Conservative management so far (2) Sepsis Code(s): A41.9 - SEPSIS, UNSPECIFIED ORGANISM Status: Suspected Qualifiers: Sepsis type: sepsis due to unspecified organism Qualified Code(s): A41.9 - Sepsis, unspecified organism Comment: Cultures negative so far. (3) ESRD (end stage renal disease) on dialysis Code(s): N18.6 - END STAGE RENAL DISEASE; Z99.2 - DEPENDENCE ON RENAL DIALYSIS Status: Chronic Comment: maintainance dialysis tomorrow (4) HLD (hyperlipidemia) Code(s): E78.5 - HYPERLIPIDEMIA, UNSPECIFIED Status: Chronic Qualifiers: Hyperlipidemia type: unspecified Qualified Code(s): E78.5 - Hyperlipidemia , unspecified (5) HTN (hypertension) Code(s): I10 - ESSENTIAL (PRIMARY) HYPERTENSION Status: Chronic Qualifiers: Hypertension type: essential hypertension Qualified Code(s): I10 - Essential (primary) hypertension Comment: On PRN IV hydralazine - Plan * . Review of Systems - Medications/Allergies Allergies/Adverse Reactions: Allergies Allergy/AdvReac Type Severity Reaction Status Date / Time Sulfa (Sulfonamide Allergy Verified 02/27/18 01:35 Antibiotics) Medications: Current Medications Acetaminophen (Tylenol) 650 mg PO Q4H PRN PRN Reason: Headache/Fever or Pain Last Admin: 03/02/18 08:12 Dose: 650 mg Amlodipine Besylate (Norvasc) 5 mg PO DAILY [facility] Last Admin: 03/03/18 09:00 Dose: 5 mg Cinacalcet (Sensipar) 30 mg PO DAILY [facility] Last Admin: 03/03/18 09:00 Dose: 30 mg Clonidine (Catapres) 0.1 mg PO Q4H PRN PRN Reason: SBP Greater Than 170 Last Admin: 02/28/18 04:16 Dose: 0.1 mg Docusate Sodium (Colace) 100 mg PO BID [facility] Last Admin: 03/03/18 09:00 Dose: 100 mg Famotidine (Pepcid) 20 mg SLOW IVP DAILY [facility] Last Admin: 03/03/18 09:38 Dose: 20 mg Guaifenesin/Dextromethorphan (Robitussin Dm) 15 ml PO Q4H PRN PRN Reason: Cough Heparin Sodium (Porcine) (Heparin) 5,000 units SC BID [facility] Last Admin: 03/03/18 09:00 Dose: 5,000 units Hydralazine HCl (Apresoline) 10 mg SLOW IVP Q4H PRN PRN Reason: SBP > 180 Dextrose/Lactated Ringer's (D5 Lr) 1,000 mls @ 100 mls/hr IV .Q10H [facility] Last Admin: 03/03/18 09:10 Dose: 1,000 mls Piperacillin Sod/Tazobactam (Sod 2.25 gm/ Sodium Chloride) 100 mls @ 200 mls/ hr IVPB 0500,1300,2100 [facility] Last Admin: 03/03/18 05:31 Dose: 100 mls Labetalol HCl (Normodyne) 10 mg SLOW IVP Q4H PRN PRN Reason: SBP Greater Than 180 Levothyroxine Sodium (Synthroid) 75 mcg PO 0600 [facility] Last Admin: 03/03/18 05:31 Dose: 75 mcg Magnesium Hydroxide (Milk Of Magnesium) 30 ml PO BID PRN PRN Reason: Constipation Last Admin: 02/27/18 18:38 Dose: 30 ml Morphine Sulfate (Morphine) 2 mg SLOW IVP Q4H PRN PRN Reason: Severe Pain (7-10) Ondansetron HCl (Zofran) 4 mg IVP Q6H PRN PRN Reason: Nausea/Vomiting Last Admin: 03/02/18 10:57 Dose: 4 mg Potassium Chloride (Potassium Chloride) 20 meq IVPB [facility] Sevelamer Carbonate (Renvela) 800 mg PO QID-WM [facility] Last Admin: 03/03/18 09:00 Dose: Not Given Simethicone (Mylicon Chewable) 80 mg PO PCHS PRN PRN Reason: Gas Pain Last Admin: 02/27/18 21:04 Dose: 80 mg Sodium Chloride (Flush - Normal Saline) 10 ml IVF PRN PRN PRN Reason: Saline Flush Last Admin: 03/03/18 09:01 Dose: 10 ml
[2018-03-03] MEDS ORDERED: Potassium Chloride 20 MEQ/100 ML PREMIX BAG IVPB SCH (10:15)
[2018-03-03] MEDS: Acetaminophen 325 MG TAB PO PRN (12:01)
--- NOTE | 2018-03-03 12:59 | PRG ---
DATE OF SERVICE: 03/03/2018 ATTENDING PHYSICIAN: Dr. Holland Saxena. SUBJECTIVE: Ms. Castro is a 67-year-old female with a diagnosis of small-bowel obstruction. She w as admitted to the hospital and placed on bowel rest with NG tube decompression. Small bowel follow through was started yesterday; however, she had subsequent nausea and vomiting with abdominal pain. NG tube was placed back to low intermittent wall suction. Overnight abdominal pain has significantly improved. With 1850 mL out last night. This morning, her ostomy is functioning. She has no signif icant pain. She is resting comfortably in bed. OBJECTIVE: VITAL SIGNS: Temperature 99.7, pulse 78, respirations 16, O2 sat 96% on room air, blood pressure is 150/72. GENERAL: A 67-year-old female lying in bed, in no acute distress. ABDOMEN: Soft, nontender, nondistended. Colostomy and ileostomy in place with appearing to be funct ioning normally. NG tube with bilious output. IMPRESSION: 1. Acute small-bowel obstruction. 2. NG tube decompression. PLAN: 1. Clamp NG tube. If the patient should have return of nausea/vomiting and/or abdominal pain, we wi ll place NG tube back to low intermittent wall suction. 2. May have popsicles. 3. We will continue to follow with you for serial abdominal examinations. There is no acute surgica l indication at this time. The patient was seen and examined with Dr. Saxena, who agrees with plan.
[2018-03-04] MEDS: Piperacillin/Tazobactam 2.25 GM in Sodium Chloride 0.9% 100 ML IVPB SCH ×3 (05:34→21:11)
[2018-03-04] MEDS: Levothyroxine Sodium 75 MCG TAB PO SCH (05:34)
[2018-03-04] MEDS: Dextrose 5%-Lactated Ringers 1,000 ML IV SCH ×2 (05:34→18:11)
[2018-03-04 05:49] LABS: ALT (SGPT) Less than 7 U/L (8-55); AST (SGOT) 22 U/L (5-34); Albumin 2.7 g/dL (3.4-4.8); Alkaline Phosphatase 130 U/L (40-150); Anion Gap 21 mmol/L (10-20); BUN (Urea Nitrogen) 23 mg/dL (9.8-20.1); Bilirubin, Total 0.8 mg/dL (0.2-1.2); Calc. Creatinine Clearance 14 mL/min (70-130); Calcium 9.4 mg/dL (7.8-10.44); Carbon Dioxide 26 mmol/L (23-31); Chloride 92 mmol/L (98-107); Estimated GFR-MDRD 11; Glucose 107 mg/dL (80-115); Potassium 4.4 mmol/L (3.5-5.1); Protein, Total 5.7 g/dL (6.0-8.3); Sodium 135 mmol/L (136-145)
[2018-03-04 07:42] LABS: #Eosinphils 0.2 thou/uL (0.0-0.7); #Lymphocytes 1.9 thou/uL (1.20-3.40); #Monocytes 0.9 thou/uL (0.11-0.59); #Neutrophils 7.5 thou/uL (1.40-6.50); %Basophils 0.2 % (0.0-1.0); %Eosinophils 1.7 % (0.0-10.0); %Monocytes 8.3 % (0.0-10.0); %Neutrophils 71.8 % (42.0-75.0); Hemoglobin 8.7 g/dL (12.0-16.0); Mean Corpuscular HGB CONC 32.5 g/dL (32.0-36.0); Mean Corpuscular Hemoglobin 31.2 pg (27.0-31.0); Mean Corpuscular Volume 96.2 fl (81.0-99.0); Mean Platelet Volume 6.7 fL (7.4-10.4); Platelet Count 244 thou/uL (130-400); RBC Distribution Width 12.9 % (11.5-14.5); White Blood Cell (WBC) Count 10.5 thou/uL (4.8-10.8)
[2018-03-04] MEDS: Heparin 5,000 UNITS/ML VIAL SC SCH ×2 (08:07→20:18)
[2018-03-04] MEDS: Amlodipine 5 MG TAB PO SCH (08:08)
[2018-03-04] MEDS: Cinacalcet HCl 30 MG TAB PO SCH (08:08)
[2018-03-04] MEDS: Docusate 100 MG CAP PO SCH ×2 (08:08→20:13)
[2018-03-04] MEDS: Sevelamer Carbonate 800 MG TAB PO SCH ×4 (08:08→20:13)
[2018-03-04] MEDS ORDERED: Epoetin (ESRD) 10,000 UNITS/ML VIAL IVP SCH (09:15)
[2018-03-04] MEDS ORDERED: Epoetin (ESRD) 20,000 UNITS/ML SC SCH (09:15)
--- NOTE | 2018-03-04 09:23 | PRG ---
DATE OF SERVICE: 03/04/2018. SUBJECTIVE: Ms. Castro is a 67-year-old white female followed up for her end-stage renal disease - currently on maintenance hemodialysis. She developed a partial small-bowel obstruction. Currently being managed conservatively. An NG tube has been placed. She has been able to tolerate clear liqu ids at the present time. Surgery is following. She is tolerating her current hemodialysis regimen. She voices no new complaints. No chest pain or shortness of breath, no nausea, no vomiting. PHYSICAL EXAMINATION: VITAL SIGNS: Blood pressure 150/68, heart rate 74, respiratory rate 18, temperature 98.2, pulse ox 9 8%. GENERAL: Awake, supine, comfortable, not in overt distress. SKIN: Adequate turgor. HEENT: She has slightly pale conjunctivae, anicteric sclerae. NECK: No neck mass, no carotid bruits, no JVD. CHEST: No deformities. LUNGS: Clear breath sounds. HEART: Normal sinus rhythm. No murmur, no gallops or rubs. ABDOMEN: Globular, soft, nontender, no masses. Positive for urostomy. EXTREMITIES: No edema, status post left BKA. MEDICATIONS: 03/04/2018 - Reviewed. LABORATORY DATA: 03/04/2018 - White count 10.5, hemoglobin 8.7. Sodium 135, potassium 4.4, chloride 92, carbon dioxide 26, BUN 23, creatinine 4.03, AST 22, ALT less than 7, albumin 2.7. KUB of 2017 currently pending. 03/02/2018 - Small bowel follow through - consistent with a small-bowel obstruction. ASSESSMENT AND PLAN: 1. Partial small-bowel obstruction - conservative management. NG tube was clamped yesterday. She i s tolerating some limited clear liquids at the present time. Surgery is following. 2. End-stage renal disease, stable. No indication for an acute dialysis. Continue current Sunday, , and Sunday dialysis regimen. Again, fluid removal only as tolerated. 3. Anemia. Restart Epogen at 10,000 units subcutaneously every week. Recheck base met and CBC in a.m.
--- NOTE | 2018-03-04 09:54 | RAD ---
TWO VIEWS OF THE ABDOMEN: DATE: 03/04/18. HISTORY: Followup small bowel study on 03/02/18. FINDINGS: Contrast persists in loops of small bowel within the pelvis. There is opacification of loops of dyllan l in the right mid abdomen which may represent the colon. A few distended gas-filled loops of small bowel are again noted. Postsurgical changes of the abdomen are again seen with scattered surgical clips seen throughout the abdomen and overlying the pelvis with radiopaque suture material overlying the right upper quadrant. Nasogastric tube remains in place. Dense vascular calcifications are seen involving the abdominal a sonido and iliac and femoral arteries as well as splenic artery. Differential air fluid level is seen on the decubitus view of the abdomen. IMPRESSION: 1. Contrast persisting in loops of small bowel when compared to the study on 03/02/18. There is opac ification of loops of bowel within the right mid abdomen which may potentially represent loops of lar ge bowel, but this is difficult to definitively determine. Given persistence of contrast within the small bowel suggests a partial small bowel obstruction. Distended gas-filled loops of small bowel ar e seen in the mid abdomen. 2. Extensive postsurgical changes of the abdomen. 3. Extensive vascular calcifications. 4. Osteopenia. POS: [facility]
[2018-03-04] MEDS ORDERED: Epoetin (ESRD) 10,000 UNITS/ML VIAL SC SCH (10:15)
[2018-03-04] MEDS ORDERED: Vecuronium 10 MG VIAL ONE (10:24)
[2018-03-04] MEDS ORDERED: Lidocaine 1% PF 5 ML VIAL ONE (10:24)
[2018-03-04] MEDS ORDERED: Succinylcholine Chloride 20 MG/ML 10 ml SYRINGE FS ONE (10:24)
[2018-03-04] MEDS ORDERED: PROPOFOL 200 MG/20 ML VIAL ONE (10:24)
[2018-03-04] MEDS ORDERED: PHENYLEPHRINE-NS 100 MCG/ML 10 ML SYRINGE ONE (10:24)
[2018-03-04] MEDS ORDERED: Norepinephrine 4 MG/4 ML VIAL ONE (10:24)
[2018-03-04] MEDS ORDERED: Calcium Chloride 1 GM/10 ML Abboject SYRINGE ONE (10:24)
[2018-03-04] MEDS: Famotidine/PF 20 mg/2ml Vial SLOW IVP SCH (10:26)
--- NOTE | 2018-03-04 10:38 | PRG ---
DATE OF SERVICE: 03/04/2018 HISTORY OF PRESENT ILLNESS: Ms. Castro is hospital day #7 for evaluation and treatment of nausea a nd vomiting. She had findings consistent with a small bowel obstruction at the end of last week. Na sogastric tube was placed on evening and a Gastrografin small bowel follow through was obtai enzo on Sunday morning (03/02/2018). She could not tolerate the contrast and began vomiting. X-ray from today shows that there is still contrast in the small bowel. She notes that she has had some m inimal colostomy output, but very little. She had significant pain during the time that the contrast was being administered. PHYSICAL EXAMINATION: VITAL SIGNS: She is afebrile, pulse 74, blood pressure 150/68. LUNGS: Lungs are clear to auscultation. CARDIAC: Regular rate and rhythm. ABDOMEN: Soft and nontender with hypoactive bowel sounds. She has a right-sided urostomy and a left -sided colostomy. ASSESSMENT: Patient with persistent small-bowel obstruction. PLAN: I recommend exploratory laparotomy. Given her prior surgery with a pelvic exenteration, it is possible that she will have extensive adhesions. Nonetheless, she has an obstruction that is not re solving after 5 days of nasogastric suction. I discussed this with the patient. She understands and agrees to proceed.
[2018-03-04] MEDS ORDERED: cefOXitin 2 GM in Sodium Chloride 0.9% 100 ML IVPB SCH (10:45)
[2018-03-04] MEDS ORDERED: Fentanyl 100 MCG/2 ML VIAL ONE (12:06)
[2018-03-04] MEDS ORDERED: Phenylephrine HCL 10 MG/ML VIAL ONE (12:30)
[2018-03-04] MEDS ORDERED: Promethazine HCl 25 MG/ML VIAL SLOW IVP PRN (13:31)
[2018-03-04] MEDS ORDERED: Ondansetron HCl/PF 4 MG/2 ML Vial IVP PRN (13:31)
[2018-03-04] MEDS ORDERED: Promethazine HCl 25 MG/ML VIAL IM PRN (13:31)
[2018-03-04] MEDS ORDERED: Sodium Chloride 0.9% 10 ML ONE ×2 (15:21)
--- NOTE | 2018-03-04 17:07 | PDOC.PN ---
- Subjective Encounter Start Date: 03/04/18 Encounter Start Time: 09:00 Pt seen for followup re: bowel obstruction. Denies chest pain or shortness of breath. No fevers or chills. Passing flatus. - Objective Resuscitation Status: Resuscitation Status FULL:Full Resuscitation MAR Reviewed: Yes Vital Signs & Weight: Vital Signs (12 hours) Temp Pulse Resp BP Pulse Ox 03/04/18 13:19 98.8 F 78 16 154/67 H 92 L 03/04/18 08:08 74 03/04/18 08:00 98.2 F 74 18 98 03/04/18 07:44 98.8 F 74 16 150/68 H 93 L Weight Admit Weight 145 lb 8.081 oz Weight 147 lb 6.4 oz I&O: 03/03/18 03/04/18 03/05/18 06:59 06:59 06:59 Intake Total 1414 1663 Output Total 3320 795 Balance -1906 868 Result Diagrams: 03/05/18 05:05 03/05/18 05:05 Additional Labs: Accuchecks 03/03/18 18:05 POC Glucose 114 H labs reviewed by me Phys Exam - Physical Examination Constitutional: NAD HEENT: moist MMs NG tube Neck: supple Respiratory: clear to auscultation bilateral Cardiovascular: RRR Gastrointestinal: soft, non-tender L AKA Neurological: moves all 4 limbs Psychiatric: normal affect Dx/Plan (1) Bowel obstruction Code(s): K56.609 - UNSP INTESTNL OBST, UNSP TO PARTIAL VERSUS COMPLETE OBST Status: Acute Qualifiers: Intestinal obstruction type: unspecified Intestinal obstruction extent: unspecified extent Qualified Code(s): K56.609 - Unspecified intestinal obstruction, unspecified as to partial versus complete obstruction Comment: NG tube was clamped yesterday. Conservative management so far (2) Sepsis Code(s): A41.9 - SEPSIS, UNSPECIFIED ORGANISM Status: Suspected Qualifiers: Sepsis type: sepsis due to unspecified organism Qualified Code(s): A41.9 - Sepsis, unspecified organism Comment: Cultures negative so far. (3) ESRD (end stage renal disease) on dialysis Code(s): N18.6 - END STAGE RENAL DISEASE; Z99.2 - DEPENDENCE ON RENAL DIALYSIS Status: Chronic Comment: maintainance dialysis tomorrow (4) HLD (hyperlipidemia) Code(s): E78.5 - HYPERLIPIDEMIA, UNSPECIFIED Status: Chronic Qualifiers: Hyperlipidemia type: unspecified Qualified Code(s): E78.5 - Hyperlipidemia , unspecified (5) HTN (hypertension) Code(s): I10 - ESSENTIAL (PRIMARY) HYPERTENSION Status: Chronic Qualifiers: Hypertension type: essential hypertension Qualified Code(s): I10 - Essential (primary) hypertension Comment: On PRN IV hydralazine - Plan * . Review of Systems - Medications/Allergies Allergies/Adverse Reactions: Allergies Allergy/AdvReac Type Severity Reaction Status Date / Time Sulfa (Sulfonamide Allergy Verified 02/27/18 01:35 Antibiotics) Medications: Current Medications Acetaminophen (Tylenol) 650 mg PO Q4H PRN PRN Reason: Headache/Fever or Pain Last Admin: 03/03/18 12:01 Dose: 650 mg Amlodipine Besylate (Norvasc) 5 mg PO DAILY [facility] Last Admin: 03/04/18 08:08 Dose: 5 mg Cinacalcet (Sensipar) 30 mg PO DAILY [facility] Last Admin: 03/04/18 08:08 Dose: 30 mg Clonidine (Catapres) 0.1 mg PO Q4H PRN PRN Reason: SBP Greater Than 170 Last Admin: 02/28/18 04:16 Dose: 0.1 mg Docusate Sodium (Colace) 100 mg PO BID [facility] Last Admin: 03/04/18 08:08 Dose: 100 mg Epoetin Jimbo (Procrit) 10,000 units SC Q7D [facility] Last Admin: 03/04/18 10:29 Dose: 10,000 units Famotidine (Pepcid) 20 mg SLOW IVP DAILY [facility] Last Admin: 03/04/18 10:26 Dose: 20 mg Guaifenesin/Dextromethorphan (Robitussin Dm) 15 ml PO Q4H PRN PRN Reason: Cough Heparin Sodium (Porcine) (Heparin) 5,000 units SC BID [facility] Last Admin: 03/04/18 08:07 Dose: 5,000 units Hydralazine HCl (Apresoline) 10 mg SLOW IVP Q4H PRN PRN Reason: SBP > 180 Dextrose/Lactated Ringer's (D5 Lr) 1,000 mls @ 100 mls/hr IV .Q10H [facility] Last Admin: 03/04/18 05:34 Dose: 1,000 mls Piperacillin Sod/Tazobactam (Sod 2.25 gm/ Sodium Chloride) 100 mls @ 200 mls/ hr IVPB Q8HR [facility] Last Admin: 03/04/18 15:32 Dose: Not Given Cefoxitin Sodium 2 gm/ Sodium (Chloride) 100 mls @ 100 mls/hr IVPB ONCALL[facility] Labetalol HCl (Normodyne) 10 mg SLOW IVP Q4H PRN PRN Reason: SBP Greater Than 180 Levothyroxine Sodium (Synthroid) 75 mcg PO 0600 [facility] Last Admin: 03/04/18 05:34 Dose: 75 mcg Magnesium Hydroxide (Milk Of Magnesium) 30 ml PO BID PRN PRN Reason: Constipation Last Admin: 02/27/18 18:38 Dose: 30 ml Morphine Sulfate (Morphine) 2 mg SLOW IVP Q4H PRN PRN Reason: Severe Pain (7-10) Ondansetron HCl (Zofran) 4 mg IVP Q6H PRN PRN Reason: Nausea/Vomiting Last Admin: 03/02/18 10:57 Dose: 4 mg Sevelamer Carbonate (Renvela) 800 mg PO QID-WM [facility] Last Admin: 03/04/18 11:28 Dose: Not Given Simethicone (Mylicon Chewable) 80 mg PO PCHS PRN PRN Reason: Gas Pain Last Admin: 02/27/18 21:04 Dose: 80 mg Sodium Chloride (Flush - Normal Saline) 10 ml IVF PRN PRN PRN Reason: Saline Flush Last Admin: 03/03/18 09:01 Dose: 10 ml
[2018-03-04] MEDS ORDERED: Norepinephrine 8 MG/0.9% NS 250 ML ONE (17:09)
[2018-03-04] MEDS ORDERED: Midazolam HCl 2 mg/2 ml Vial ONE (17:24)
[2018-03-04] MEDS ORDERED: Sodium Chloride 0.9% 0 ML ONE (18:06)
[2018-03-04] MEDS ORDERED: Sodium Chloride 0.9% 2,000 ML IV SCH (18:45)
[2018-03-04] MEDS: Vasopressin 40 UNIT, Admixture Fee 1 EACH in Sodium Chloride 0.9% 100 ML IV SCH (18:45)
[2018-03-04] MEDS ORDERED: Hydrocortisone Sod Succ/PF 100 mg/2 ml Vial IVP SCH (18:45)
[2018-03-04 19:16] LABS: Actual Bicarbonate (HCO3a) 15.8 mEq/L (22-28); CO2 Tension 33.9 mmHg (35.0-45.0); O2 Tension (PaO2) 93.5 mmHg (> 80.0); pH, Arterial 7.29 (7.35-7.45)
[2018-03-04 19:17] LABS: Base Excess (BEa) -9.9 mEq/L (-2.0 to +3.0); Calcium, Ionized 1.1 mmol/L (1.12-1.30); Hemoglobin (Hb) 13.6 g/dL (12.0-16.0)
[2018-03-04 19:18] LABS: Hemoglobin 13.1 g/dL (12.0-16.0); Mean Corpuscular HGB CONC 32.8 g/dL (32.0-36.0); Mean Corpuscular Volume 91.4 fl (81.0-99.0); Mean Platelet Volume 7.1 fL (7.4-10.4); Platelet Count 314 thou/uL (130-400); RBC Distribution Width 14.8 % (11.5-14.5); Red Blood Cell (RBC) Count 4.38 mill/uL (4.20-5.40); White Blood Cell (WBC) Count 29.4 thou/uL (4.8-10.8)
[2018-03-04 19:33] LABS: ALV-art Gradient 220.625 (0-20); Puncture Site LBA
[2018-03-04 19:34] LABS: Anion Gap 18 mmol/L (10-20); BUN (Urea Nitrogen) 25 mg/dL (9.8-20.1); Calc. Creatinine Clearance 13 mL/min (70-130); Calcium 8.4 mg/dL (7.8-10.44); Carbon Dioxide 16 mmol/L (23-31); Chloride 105 mmol/L (98-107); Estimated GFR-MDRD 10; Glucose 98 mg/dL (80-115); Potassium 3.1 mmol/L (3.5-5.1); Sodium 136 mmol/L (136-145)
[2018-03-04] MEDS ORDERED: Norepinephrine 8 MG/250 ML BAG IVPB PRN (19:36)
[2018-03-04 19:42] LABS: Band 32 % (5-11); Eosinophils 1 % (0-10); Lymphocytes 8 % (21-51); MDiff Complete? YES; Metamyelocyte 4 % (0-0); Monocytes 6 % (0-10); Myelocyte 1 % (0-0); Neutrophil 44 % (42-75); PLT Morphology Comment Appears Adequate; Polychromasia SLIGHT = 2-3 cells (100X) (0-2/hpf); Reactive Lymphocytes 4 % (0-10); Toxic Granulation SLIGHT; Vacuoles SLIGHT
[2018-03-04] MEDS ORDERED: Sodium Chloride 0.9% 1,000 ML IV SCH (19:45)
[2018-03-04] MEDS: Calcium Gluconate 4.6 MEQ in Sodium Chloride 0.9% 100 ML IVPB SCH (20:05)
--- NOTE | 2018-03-04 21:01 | RAD ---
RADIOGRAPH CHEST 1 VIEW: Date: 03/04/2018 Time: 6:45 p.m. HISTORY: A 67-year-old female status post exploratory lap. COMPARISON: 02/26/2018 FINDINGS: The current study is positioned supine, which would be insensitive for pneumothorax detection. There is a new finding of a large region of lucency overlying the left upper quadrant of the abdomen, prob ably representing pneumoperitoneum from recent laparotomy or laparoscopy. There is a new left internet and e business project manager al jugular central venous catheter with the distal tip overlying the upper cardiac shadow or mediasti num, just to the right of midline. An endotracheal tube has been placed into the upper thoracic trac hea. An NG tube has been placed into the left upper quadrant of the abdominal cavity. The visualize d lung martinez are clear. No cardiomegaly. There is a right subclavian metallic vascular stent. IMPRESSION: 1. Status post intubation with endotracheal tube. 2. Nasogastric tube placement. 3. Left-sided central vascular catheter placement. 4. Pneumoperitoneum, presumably due to recent laparotomy or laparoscopy. 5. No acute pulmonary findings. MONIQUE [] POS: [facility]
[2018-03-05] MEDS: Calcium Gluconate 4.6 MEQ in Sodium Chloride 0.9% 100 ML IVPB SCH (00:15)
[2018-03-05] MEDS ORDERED: Sodium Chloride 0.9% 1,000 ML IV SCH (00:30)
[2018-03-05] MEDS ORDERED: EPINEPHrine 1 MG, Admixture Fee 1 EACH in Dextrose 5% in Water 250 ML IVPB SCH (01:30)
[2018-03-05] MEDS: Sodium Bicarb 50 MEQ/50 ML Abboject 8.4% SYRINGE ONE ×2 (02:06→02:07)
[2018-03-05 02:12] LABS: O2 Tension (PaO2) 87.8 mmHg (> 80.0); pH, Arterial 7.08 (7.35-7.45)
[2018-03-05 02:13] LABS: Actual Bicarbonate (HCO3a) 6.9 mEq/L (22-28); Base Excess (BEa) -21.6 mEq/L (-2.0 to +3.0); Hemoglobin (Hb) 13.1 g/dL (12.0-16.0)
[2018-03-05 02:14] LABS: Calcium, Ionized 1.2 mmol/L (1.12-1.30); Puncture Site LBA
[2018-03-05 02:26] LABS: Band 38 % (5-11); Glucose 26 mg/dL (80-115); Hemoglobin 12.9 g/dL (12.0-16.0); Lymphocytes 9 % (21-51); MDiff Complete? YES; Mean Corpuscular HGB CONC 32.8 g/dL (32.0-36.0); Mean Corpuscular Hemoglobin 30.6 pg (27.0-31.0); Mean Corpuscular Volume 93.4 fl (81.0-99.0); Mean Platelet Volume 7.8 fL (7.4-10.4); Metamyelocyte 6 % (0-0); Monocytes 4 % (0-10); Neutrophil 43 % (42-75); PLT Morphology Comment Appears Adequate; Platelet Count 242 thou/uL (130-400); RBC Distribution Width 15.7 % (11.5-14.5); Red Blood Cell (RBC) Count 4.22 mill/uL (4.20-5.40); White Blood Cell (WBC) Count 33.2 thou/uL (4.8-10.8)
[2018-03-05] MEDS ORDERED: Dextrose 50% Abboject 50 ML SYRINGE ONE ×2 (02:26→19:48)
[2018-03-05] MEDS ORDERED: DOBUTamine 500 mg/250 ml 250 ML IVPB SCH (02:30)
[2018-03-05] MEDS ORDERED: Lacri-Lube Opth Oint 3.5 GM TUBE EA EYE PRN (02:31)
[2018-03-05] MEDS ORDERED: fentaNYL Citrate/PF 2,000 MCG in Sodium Chloride 0.9% 60 ML IV SCH (02:43)
[2018-03-05] MEDS ORDERED: DISCONTINUE PREVIOUS NARCOTIC PAIN MEDICATIONS AND BENZODIAZEPINES FS SCH (02:43)
[2018-03-05] MEDS ORDERED: Morphine 4 MG/ML VIAL SLOW IVP PRN (02:43)
[2018-03-05] MEDS ORDERED: Propofol 1,000 MG/100 ML VIAL IV PRN (02:43)
[2018-03-05] MEDS ORDERED: Fentanyl BOLUS 250 ML IVPB PRN (02:43)
[2018-03-05] MEDS ORDERED: Propofol BOLUS 1,000 MG/100 ML VIAL IV PRN (02:43)
[2018-03-05] MEDS ORDERED: Lorazepam 2 MG/ML VIAL SLOW IVP PRN (02:43)
[2018-03-05] MEDS ORDERED: Ventilator Sedation Protocol 1 EACH FS SCH (02:45)
[2018-03-05] MEDS: Micafungin 100 MG in Sodium Chloride 0.9% 100 ML IVPB SCH (03:00)
[2018-03-05] MEDS ORDERED: EPINEPHrine 4 MG, Admixture Fee 1 EACH in Dextrose 5% in Water 250 ML IVPB SCH (03:45)
[2018-03-05] MEDS ORDERED: Sodium Bicarb 50 MEQ/50 ML Abboject 8.4% SYRINGE IVP SCH (04:00)
[2018-03-05] MEDS ORDERED: Sodium Bicarbonate 150 MEQ in Dextrose 5% in Water 1,000 ML IV SCH ×2 (04:45→10:45)
[2018-03-05] MEDS: Hydrocortisone Sod Succ/PF 100 mg/2 ml Vial IVP SCH ×4 (04:55→20:48)
--- NOTE | 2018-03-05 05:05 | PDOC.EVN ---
Event Note - Event Note Event Note: Called to beside for code blue for Ms. Castro at 0421. Confirmed that she was a full code, chest compressions already in progress due to PEA rhythm identified. Administered epi, bicarb, calcium and dextrose during code, asystole at interim pules check then at [address] with pulse, compressions stopped. Dialysis stopped, she had about 50 CC off at time of code. Family was called and at bedside now, discussed case and family deciding on code status, chlorinator operator at bedside now. Called Dr. Qureshi--continue bicarb drip, will place art line. Her sound physician is also now at bedside. Please refer to code note for time of social media analyst and full details of event.
--- NOTE | 2018-03-05 05:08 | PDOC.EVN ---
Event Note - Event Note Event Note: Patient was just out of OR following a Exploratory laparotomy Small bowle Lysis adhesions, Pt was about to be started on HD, he rBlood pressures Dropped to 60 and she lost her pulse with Asystoli, pt was on Levofphen and she maxed out on it, She was Coded with CPR and Epi multiple times for 25-30 min and on Epi drip , pulse was regained. patient Was hypoglycemic before the code at 26mg/dl, she was given Amp of D 50 and Solucortif was given, paitent had Good pulse, and repeat Labs were ordered. Discussed with Patient Daughter, EMELINA, explained pt is very critical post surgery and on Dialysis, high chance she would code again , family wants to continue resustation if she codes.
[2018-03-05] MEDS ORDERED: Albumin 25% 25 GM/100 ML BOT IVPB SCH (05:17)
[2018-03-05 05:24] LABS: ALT (SGPT) 1483 U/L (8-55); AST (SGOT) 2167 U/L (5-34); Albumin 1.9 g/dL (3.4-4.8); Alkaline Phosphatase 95 U/L (40-150); BUN (Urea Nitrogen) 28 mg/dL (9.8-20.1); Bilirubin, Total 1.7 mg/dL (0.2-1.2); Calc. Creatinine Clearance 12 mL/min (70-130); Carbon Dioxide Less than 8 mmol/L (23-31); Chloride 109 mmol/L (98-107); Estimated GFR-MDRD 10; Globulin 1.8 g/dL (2.4-3.5); Glucose 20 mg/dL (80-115); Potassium 6.7 mmol/L (3.5-5.1); Protein, Total 3.7 g/dL (6.0-8.3); Sodium 136 mmol/L (136-145)
[2018-03-05 05:24] LABS: Lactic Acid Greater than 13.4 mmol/L (0.5-2.2)
[2018-03-05] MEDS: Norepinephrine 16 MG in Sodium Chloride 0.9% 250 ML 250 ML IVPB PRN ×3 (05:32→21:18)
[2018-03-05 05:39] LABS: Anion Gap 30 mmol/L (10-20); BUN (Urea Nitrogen) 26 mg/dL (9.8-20.1); Calc. Creatinine Clearance 13 mL/min (70-130); Calcium 8.9 mg/dL (7.8-10.44); Carbon Dioxide 12 mmol/L (23-31); Chloride 104 mmol/L (98-107); Estimated GFR-MDRD 10; Glucose 224 mg/dL (80-115); Magnesium 1.8 mg/dL (1.6-2.6); Potassium 4.7 mmol/L (3.5-5.1); Sodium 141 mmol/L (136-145)
[2018-03-05 05:44] LABS: Phosphorus 10.6 mg/dL (2.3-4.7); Troponin I 0.456 ng/mL (< 0.028)
[2018-03-05] MEDS: Vasopressin 40 UNIT, Admixture Fee 1 EACH in Sodium Chloride 0.9% 100 ML IV SCH ×2 (05:48→13:13)
--- NOTE | 2018-03-05 06:01 | OP ---
DATE OF PROCEDURE: 03/04/2018 PREOPERATIVE DIAGNOSIS: Small-bowel obstruction. POSTOPERATIVE DIAGNOSES: Small bowel obstruction with extraordinarily dense diffuse adhesions throug hout the abdomen and especially down within the pelvis. OPERATION PERFORMED: Exploratory laparotomy with extensive lysis of adhesions (probably about 4 angela rs) and extensive small bowel resection (leaving only approximately 75-90 cm of small bowel), placeme nt of abdominal drains, placement of left subclavian central line (after attempted internal jugular l ine placement). SURGEON: Yung Montana M.D. CAREER REPRESENTATIVE: Jai Alexander, medical student. ANESTHESIA: General endotracheal. INDICATIONS: The patient is a 67-year-old white female. About 30 years ago she had extensive surger y for cervical cancer with a pelvic exenteration. She has a left-sided colostomy and a right-sided u rostomy. She presented to the hospital about a week ago with nausea and vomiting. Her symptoms did not improve and nasogastric tube was placed. After observing her for 5 days with nasogastric tube do wn, she has not improved and that she failed an attempt at a small bowel follow through. She still h as contrast in the small bowel from the study that was attempted 4 days previously. She is taken to the operating at this time for exploratory laparotomy. OPERATIVE PROCEDURE IN DETAIL: Informed consent was obtained. The patient was taken to the operatin g room where general endotracheal anesthesia obtained with the patient in supine position. The abdom en was prepared initially by placing occlusive dressings over the urostomy on the right side and the colostomy on the left side. The abdomen was prepped with ChloraPrep and draped in sterile fashion. Midline incision was created. She had a wide prior incision from suspected wound infection previousl y. This scar was excised. Dissection was carried down through the fascia into the abdominal cavity. I began my dissection superiorly. I was able to gain access into the peritoneal cavity and immedia tely encountered dilated small bowel. What proceeded was an unfortunate lengthy and meticulous attem pt at bowel dissection. There clearly was obstructed small bowel in the upper abdomen. Unfortunatel y, it dived down into areas of dense adhesions both in the left upper abdomen and heading down toward s the pelvis. The wound was calcified with heterotopic calcification in the lower wound, I had to ex cise this calcified tissue to be able to open the abdominal incision. All of the bowel that was adhe rent to the anterior abdominal wall was densely fused in a fashion such that it was virtually impossi ble to remove the bowel from the abdominal wall. This proved to be even more problematic in the lowe r abdomen. In an attempt to find the area of the obstruction and mobilize inferiorly, a series of en terotomies were created. In the early stages of the operation there were a couple of enterotomies an d the bowel was of poor quality and these enterotomies enlarged in size during the course of dissecti on. As I dissected down to the pelvis and had to mobilize the bowel away from the pelvis, it was abs olutely impossible to maintain bowel integrity. As these were the densest and worst adhesions that I believe has ever seen in my career. The bowel that was in the pelvis was severely damaged in multip le locations. Some of the segments of small bowel seemed to be impossible to be removed and parts of the bowel wall were perhaps left within the pelvis because of the density of the diffusion. I was able to identify the ureter on the left side as it approached the segment of the bowel that was the functional urostomy. I did not see the right-sided ureter. After a lengthy mobilization of the bowel, I eventually was able to identify a segment of ileum about 7-8 cm in length that was free of disease. In the proximal bowel, the area that was dilated seemed in continuity with the ligament of Treitz. I could not follow the entire length of it, but it seemed as though this was all patent up to the ligament of Treitz. When I measured this, this was at least 75 cm in length proximal and 8-9 cm distal. There were segments of the bowel that I could not trace due again to the density of adhesions. I was able to identify the transverse colon and the left colon as it entered the colostomy. She had a big parastomal hernia. The bowel from within it had been mobilized early. The colon itself, howev er, appeared to be viable and relatively decompressed. I performed an extensive segmental resection of the small bowel, dividing proximal and distal to the areas that were damaged with the MICHELLE-75 stapler. The mesentery was then taken down using the LigaSur e max. It was impossible to measure the length of the small bowel, because it is in multiple loops w here it was folded onto itself. This was passed off the field. An anastomosis was created between t he proximal and distal segments of small bowel with a MICHELLE-75 stapler, closing the common defect with another fire of the same stapler. The anastomosis was then buttressed with several interrupted sutur es of 3-0 silk. No attempt was made to close the large mesenteric defect. There was bleeding and oozing from multiple sites primarily within the pelvis and this was controlled with electrocautery. The abdomen was then irrigated with 5 liters of warm saline. Again, extensive amount of bowel contents had drained into the abdomen at various parts of the operation. Two #19 ro und fluted drains were obtained. One was placed on the right side and was passed out of the pelvis a nd up to the left, that was on the left side and placed down the pelvis and up to the right. Each dr ain was secured with 3-0 nylon suture. The fascia was then closed with a running suture of loop #1 P DS. The wound was packed with a Kerlix roll and dry gauze placed externally. The ostomy appliances were replaced. Although no vascular injury occurred, there was ongoing oozing through the course of the operation an d as she was anemic going into the operation with a hemoglobin of 8, she was transfused with 5 units of blood during the surgery. She was hypotensive during much of the surgery and she was on pressors per Anesthesia. I turned my attention to the central line. I first prepped and draped the right internal jugular vei n. I could not access this. When I examined it with an ultrasound, I found that there was in fact n o patent internal jugular vein on the right side of the neck. I then checked the left side and found there was an absence of left internal jugular vein as well. I then turned my attention to the left chest. This was prepped with ChloraPrep and draped in sterile fashion. Large gauge needle was passe d into the left subclavian vein (after first entering the left subclavian artery). Guidewire was pas sed through the needle, needle was removed, skin was incised, tract was dilated, 7-Spanish triple-lume n catheter was passed over the wire. Each of the 3 lumens aspirated blood freely and were flushed wi th sterile saline. Catheter was secured at skin exit site with 3-0 silk suture and sterile occlusive dressing was applied along with the Biopatch. The patient was taken in critical condition still on a ventilator and still on intravenous pressors to the Intensive Care Unit.
[2018-03-05 06:09] LABS: Platelet Count 169 thou/uL (130-400)
[2018-03-05 06:32] LABS: Fibrinogen 222 mg/dL (253-463)
[2018-03-05 06:34] LABS: PTT 86.3 SEC (22.9-36.1); Prothrombin Time 81.7 SEC (12.0-14.7)
[2018-03-05 06:39] LABS: Actual Bicarbonate (HCO3a) 11.6 mEq/L (22-28); Base Excess (BEa) -16.1 mEq/L (-2.0 to +3.0); CO2 Tension 34.3 mmHg (35.0-45.0); Calcium, Ionized 1.1 mmol/L (1.12-1.30); Hemoglobin (Hb) 8.5 g/dL (12.0-16.0); O2 Tension (PaO2) 100.7 mmHg (> 80.0); pH, Arterial 7.15 (7.35-7.45)
[2018-03-05 06:40] LABS: ALV-art Gradient 498.125 (0-20); Puncture Site LINE
[2018-03-05 06:40] LABS: D-Dimer Test 4.62 *mcg/mL (0.27-0.43)
[2018-03-05 07:02] LABS: INR-International Normal Ratio 9.3
[2018-03-05 07:04] LABS: FSP-Qualitative ABNORMAL (Normal)
[2018-03-05 07:05] LABS: FSP-Semiquantitative >=20 & <40 mcg/mL (Less than 5)
[2018-03-05] MEDS: Piperacillin/Tazobactam 2.25 GM in Sodium Chloride 0.9% 100 ML IVPB SCH ×3 (08:39→20:51)
[2018-03-05] MEDS: Sevelamer Carbonate 800 MG TAB PO SCH (08:39)
[2018-03-05] MEDS: Amlodipine 5 MG TAB PO SCH (08:39)
[2018-03-05] MEDS ORDERED: Hydrocortisone Sod Succ/PF 100 mg/2 ml Vial IVP SCH (09:00)
--- NOTE | 2018-03-05 09:39 | RAD ---
PORTABLE AP CHEST RADIOGRAPH: Date: 03-05-18 History: Patient on ventilator. Follow up evaluation. Post exploratory laparotomy. Comparison: 03-04-18 FINDINGS: Endotracheal tube and left subclavian central venous catheter as well as nasogastric tube remain in p lace and unchanged in position. There is now evidence of at least a moderate sized left pneumothorax which probably approaches 30-40% of the volume of the left hemithorax. Right lung is clear. Vascular stent again overlies the right subclavian vessels. Cardiac silhouette and pulmonary vasculature are w ithin normal limits. There is partial collapse of the left lung with increased density in the left hi lar region, probably related to the pneumothorax. No other interval change. IMPRESSION: 1. Interval development of a moderate sized left pneumothorax. 2. Partial collapse of the left lung with increased density in the left hilar region, likely due to t he pneumothorax and volume loss. However, follow up evaluation is recommended. 3. Above findings discussed with Dr. Qureshi on 03-05-18 at 0751 hours. POS: [facility]
[2018-03-05] MEDS: Docusate 100 MG CAP PO SCH ×2 (09:55→20:51)
[2018-03-05] MEDS: Levothyroxine Sodium 75 MCG TAB PO SCH (10:14)
[2018-03-05] MEDS: Famotidine/PF 20 mg/2ml Vial SLOW IVP SCH (10:14)
[2018-03-05] MEDS: Cinacalcet HCl 30 MG TAB PO SCH (10:14)
[2018-03-05] MEDS: Heparin 5,000 UNITS/ML VIAL SC SCH (10:14)
--- NOTE | 2018-03-05 11:05 | CON ---
DATE OF CONSULTATION: 03/05/2018 SERVICE: Pulmonary Medicine. REASON FOR CONSULTATION: ICU patient. HISTORY OF PRESENT ILLNESS: The patient is a 67-year-old white female with past medical history significant for exoneration of the pelvic structures. This was a remote procedure that was performed. She did well up until recently when she started having nausea and vomiting. She was discovered to have a small -bowel obstruction. She failed conservative management. Ultimately, she was taken down for exploratory laparotomy. There was extensive lysis of adhesions. The small bowel was compromised in a couple of locations. She came out of the operating room late last night on pressors in mechanical ventilation. Her blood pressures were marginal at that time. We gave her a liter of fluid and her blood pressures perked up a little bit here. That being said, she once again decompensated through the evening. A repeat chest x-ray was performed demonstrating a tension pneumothorax. Her chest tube was placed this morning. I cannot get any additional elements of the history from the patient because she is currently encephalopathic. We had multiple events overnight including hyperkalemia, hypoglycemia, very low blood pressures despite the fact that she was on four separate pressors and multiple other events. PAST MEDICAL HISTORY: 1. End-stage renal disease, on hemodialysis Tuesdays, , and Saturdays. 2. History of cervical cancer, status post multiple interventions. 3. Hypothyroidism. 4. Hypertension. PAST SURGICAL HISTORY: 1. Colostomy. 2. Urostomy. 3. Pelvic exoneration. 4. Nephrectomy. 5. Left above knee amputation. ALLERGIES: SULFA. MEDICATIONS: List of her inpatient medications were reviewed and heavily modified. SOCIAL HISTORY: Negative for alcohol, tobacco or illicit drug use. FAMILY HISTORY: Noncontributory. REVIEW OF SYSTEMS: This cannot be obtained as the patient is currently intubated and sedated. PHYSICAL EXAMINATION: VITAL SIGNS: Afebrile with a low temperature of 96.1, pulse 102, blood pressure 122/32, respirations 20, saturation 100% on 41% FiO2. GENERAL: The patient is intubated and sedated. HEENT: Normocephalic, atraumatic. Sclerae are white, conjunctivae pink. Oral mucosa is moist without lesions. LUNGS: Decent air entry on the right. There is no prolonged expiratory phase or wheezing present. Her left side has absent air entry. HEART: Tachycardic. Regular. ABDOMEN: Soft, nontender and nondistended. Bowel sounds positive. MUSCULOSKELETAL: No cyanosis or clubbing. There is no pitting in the bilateral lower extremities. NEUROLOGIC: Grossly nonfocal. LABORATORY DATA: WBC 33.2, hemoglobin 12.9, platelets 242,000. Band count has increased to 38%. INR 9.3, D-dimer 4.62. A pH 7.15, pCO2 34, pO2 100.7. Creatinine 4.41, BUN 26, anion gap 30. Bicarbonate 12. Basic metabolic profile is otherwise unremarkable. Phosphorus is elevated at 10.6 and magnesium 1.2. Troponin is gently up trending to 0.456. AST and ALT are quite elevated. Blood sugar was low through the evening and was 26 and 20. White blood cells were greater than 50 previously. Blood cultures x2, C. diff antigen and toxin, stool cultures, Campylobacter, and sugar were all unremarkable. IMAGING DATA: 1. Chest x-ray demonstrates evidence of a left-sided pneumothorax, under tension. 2. Abdominal x-ray demonstrates contrast persisting in loops of small bowel. Opacification of loops of bowel within the right abdomen, which is difficult to definitively determined. Distended gas filled loops of small bowel are present in the midabdomen. Extensive postsurgical changes of the belly. ASSESSMENT: 1. Acute hypoxic respiratory failure. 2. Tension pneumothorax. 3. Septic shock. 4. Gross peritonitis. 5. Small-bowel obstruction status post laparotomy and extensive lysis of adhesion. 6. Shock liver. 7. End-stage renal disease. 8. Hypoglycemia. PLAN: We will continue our D5 water with bicarb. We will make an attempt to restart dialysis today. An emergent left side chest tube was placed. AST and ALT elevation is most likely secondary to the tension pneumothorax and hepatic congestion. We will hold off on significant IV fluids. We will wean pressors as tolerated. Currently, she was on 4 pressors, but she is already weaned off of two of them since the chest tube was placed. I will repeat a lactic acid level in 2 more hours as well as basic chemistries. The patient is in critical condition and may not make a meaningful recovery from this hospital stay. That being said, aggressive supportive measures will be continued for the time being. Critical care time: 105 minutes. [facility]
--- NOTE | 2018-03-05 12:52 | PRG ---
DATE OF SERVICE: 03/05/2018 SUBJECTIVE: Ms. Castro is a 67-year-old white female with ESRD and followed up by [facility] for her maintenance hemodialysis. She developed a small-bowel obstruction and underwent abdominal surgery yesterday. She underwent exploratory laparotomy with extensive lysis of adhesions and extens dione small bowel resection with placement of , placement of subclavian central line, and currentl y was complicated by hypotension. Last night, she became very hypoxemic. We attempted to do emergen t dialysis at that time, but she did not tolerate the dialysis. She was on several pressor support. She was also subsequently noted to have tension pneumothorax and a chest tube has been placed. This morning, she has improved hemodynamically. Our plan is to again rechallenge her with another dialys is session. OBJECTIVE: VITAL SIGNS: Blood pressure is currently at 120/44 with a heart rate 102, temperature 98.4, pulse ox 93%. GENERAL EXAM: Patient is sedated, intubated on ventilator support. SKIN: Adequate turgor. HEENT: Slightly pale conjunctivae, anicteric sclerae. NECK: No neck mass, no carotid bruits, no JVD. CHEST: No deformities. LUNGS: Decreased breath sounds - positive for chest tube. ABDOMEN: Globular, soft. Positive for ostomies and urostomy. Positive for surgical wound. EXTREMITIES: No edema, no deformities. Medications of 03/05/2018 were reviewed. LABORATORY DATA: Laboratories of 03/05/2018, white count 33.2, hemoglobin 12.9. Sodium 141, potassi um 4.7, chloride 104, carbon dioxide 12, BUN 26, creatinine 4.4, glucose 224, calcium is 10.6, magnes ium 1.8. 03/04/2018, chest x-ray showed pneumoperitoneum secondary to the exploratory laparotomy. N o other acute pulmonary findings at that time. ASSESSMENT AND PLAN: 1. Status post cardiorespiratory arrest - is more stable. She is now hemodynamically stable. Continue supportive care. 2. End-stage renal disease - due to improved blood pressure, we will rechallenge her with another di alysis session. Attempt to remove 2-3 liters of fluid as tolerated by the patient. 3. Small-bowel obstruction - the patient is status post exploratory laparotomy with lysis of adhesio ns and small bowel resection. Overall, prognosis with this patient remains guarded. Agree with current management.
--- NOTE | 2018-03-05 16:11 | PDOC.PN ---
- Subjective Encounter Start Date: 03/05/18 Encounter Start Time: 09:40 Chart reviewed. Pt seen for followup re: acute hypoxic respiratory failure. Intubated, unable to complete ROS. - Objective Resuscitation Status: Resuscitation Status FULL:Full Resuscitation MAR Reviewed: Yes Vital Signs & Weight: Vital Signs (12 hours) Temp Pulse Pulse Resp BP BP Pulse Ox 03/05/18 16:00 21 H 03/05/18 15:45 107 H 03/05/18 15:00 97.9 F 03/05/18 14:00 24 H 03/05/18 13:55 107 H 03/05/18 12:00 22 H 03/05/18 11:00 99.0 F 03/05/18 10:17 107 H 03/05/18 10:00 19 03/05/18 08:39 102 H 03/05/18 08:10 98.4 F 101 H 20 97 03/05/18 08:00 98.4 F 19 03/05/18 07:39 97.5 F L 105 H 20 120/44 L 93 L 03/05/18 07:24 97.5 F L 103 H 20 110/42 L 96 03/05/18 07:08 97.1 F L 101 H 20 78/34 L 96 03/05/18 06:40 102 H 03/05/18 06:00 20 03/05/18 04:12 60 62/28 L Weight Admit Weight 145 lb 8.081 oz Weight 143 lb 11.862 oz Most Recent Monitor Data Heart Rate from ECG 107 NIBP 99/51 NIBP BP-Mean 59 Respiration from ECG 24 SpO2 99 I&O: 03/04/18 03/05/18 03/06/18 06:59 06:59 06:59 Intake Total 1663 6368.3 410.5 Output Total 795 345 370 Balance 868 6023.3 40.5 Result Diagrams: 03/05/18 05:05 03/05/18 05:05 Additional Labs: Accuchecks 03/05/18 03/05/18 03/05/18 15:35 14:38 13:05 POC Glucose 122 H 165 H 343 H 03/05/18 03/05/18 11:39 10:28 POC Glucose 322 H 326 H EKG Reviewed by me: Yes (Tele: NSR) Phys Exam - Physical Examination Intubated HEENT: moist MMs ETT+; OGT+ Respiratory: no wheezing, no rales, no rhonchi, clear to auscultation bilateral Cardiovascular: RRR, no rub S1, S2 Gastrointestinal: soft, no distention, positive bowel sounds dressing, drain, ostomy s/p L AKA No spontaneous movements of four extremities Deviation from normal: Unable to assess mood, affect or orientation to person, place or time Dx/Plan (1) Septic shock Code(s): A41.9 - SEPSIS, UNSPECIFIED ORGANISM; R65.21 - SEVERE SEPSIS WITH SEPTIC SHOCK Status: Acute Comment: continue IV fluids, IV antibiotics as below (2) Acute respiratory failure with hypoxia Code(s): J96.01 - ACUTE RESPIRATORY FAILURE WITH HYPOXIA Status: Acute Comment: continue IV antibiotics as below (3) Tension pneumothorax Code(s): J93.0 - SPONTANEOUS TENSION PNEUMOTHORAX Status: Acute Comment: s/ p decompression drain (4) Bowel obstruction Code(s): K56.609 - UNSP INTESTNL OBST, UNSP TO PARTIAL VERSUS COMPLETE OBST Status: Acute Qualifiers: Intestinal obstruction type: unspecified Intestinal obstruction extent: unspecified extent Qualified Code(s): K56.609 - Unspecified intestinal obstruction, unspecified as to partial versus complete obstruction Comment: s/p surgery yesterday (5) Sepsis Code(s): A41.9 - SEPSIS, UNSPECIFIED ORGANISM Status: Suspected Qualifiers: Sepsis type: sepsis due to unspecified organism Qualified Code(s): A41.9 - Sepsis, unspecified organism Comment: blood cultures negative, ? peritonitis (6) ESRD (end stage renal disease) on dialysis Code(s): N18.6 - END STAGE RENAL DISEASE; Z99.2 - DEPENDENCE ON RENAL DIALYSIS Status: Chronic Comment: maintainance dialysis per nephrology service (7) HLD (hyperlipidemia) Code(s): E78.5 - HYPERLIPIDEMIA, UNSPECIFIED Status: Chronic Qualifiers: Hyperlipidemia type: unspecified Qualified Code(s): E78.5 - Hyperlipidemia , unspecified (8) HTN (hypertension) Code(s): I10 - ESSENTIAL (PRIMARY) HYPERTENSION Status: Chronic Qualifiers: Hypertension type: essential hypertension Qualified Code(s): I10 - Essential (primary) hypertension Comment: currently on vasopressors for hypotension - Plan * . Review of Systems - Medications/Allergies Allergies/Adverse Reactions: Allergies Allergy/AdvReac Type Severity Reaction Status Date / Time Sulfa (Sulfonamide Allergy Verified 02/27/18 01:35 Antibiotics) Medications: Current Medications Acetaminophen (Tylenol) 650 mg PO Q4H PRN PRN Reason: Headache/Fever or Pain Last Admin: 03/03/18 12:01 Dose: 650 mg Albuterol/Ipratropium (Duoneb) 3 ml NEB [id number] PRN PRN Reason: SOB &/or Wheezing Docusate Sodium (Colace) 100 mg PO BID [facility] Last Admin: 03/05/18 09:55 Dose: Not Given Epoetin Jimbo (Procrit) 10,000 units SC Q7D [facility] Last Admin: 03/04/18 10:29 Dose: 10,000 units Famotidine (Pepcid) 20 mg SLOW IVP DAILY [facility] Last Admin: 03/05/18 10:14 Dose: 20 mg Hydrocortisone Sodium Succinate (Solu-Cortef) 50 mg IVP 0300,0900,1500,2100 [facility] Last Admin: 03/05/18 15:22 Dose: Not Given Piperacillin Sod/Tazobactam (Sod 2.25 gm/ Sodium Chloride) 100 mls @ 200 mls/ hr IVPB Q8HR JOSE Last Admin: 03/05/18 14:08 Dose: Not Given Vasopressin 40 unit/Miscellaneous Medication 1 each/ Sodium Chloride 102 mls @ 0 mls/hr IV INF JOSE; As Directed PRN Reason: Protocol Last Admin: 03/05/18 13:13 Dose: 102 mls Norepinephrine Bitartrate 16 (mg/ Sodium Chloride) 266 mls @ 0 mls/hr IVPB INF PRN; Protocol; Titrate PRN Reason: Blood Pressure Last Admin: 03/05/18 13:41 Dose: 266 mls Dobutamine HCl/Dextrose (Dobutamine 500 Mg/250 Ml) 250 mls @ 10.029 mls/hr IVPB INF JOSE; 5 MCG/KG/MIN PRN Reason: Protocol Last Admin: 03/05/18 03:01 Dose: 250 mls Micafungin Sodium 100 mg/ (Sodium Chloride) 100 mls @ 100 mls/hr IVPB Q24HR JOSE Last Admin: 03/05/18 03:00 Dose: 100 mls Fentanyl Citrate 2,000 mcg/ (Sodium Chloride) 100 mls @ 0 mls/hr IV INF JOSE; Per Protocol PRN Reason: Protocol Stop: 04/04/18 02:43 Fentanyl Citrate (Fentanyl Bolus) 250 mls @ 0 mls/hr IVPB PRN PRN; As Directed PRN Reason: Breakthrough pain/agitation Stop: 04/04/18 02:43 Sodium Bicarbonate 150 meq/ (Dextrose/Water) 1,150 mls @ 250 mls/hr IV INF JOSE PRN Reason: As Directed Last Admin: 03/05/18 11:13 Dose: 1,150 mls Phenylephrine HCl 10 mg/ (Sodium Chloride) 251 mls @ 0 mls/hr IVPB INF JOSE; As Directed PRN Reason: Protocol Last Admin: 03/05/18 14:03 Dose: 251 mls Magnesium Hydroxide (Milk Of Magnesium) 30 ml PO BID PRN PRN Reason: Constipation Last Admin: 02/27/18 18:38 Dose: 30 ml Mineral Oil/White Petrolatum (Lacri-Lube Ointment) 0 gm EA EYE PRN PRN PRN Reason: Dry Eyes Discontinue Previous Narcotic Pain Medications And Benzodiazepines 1 each FS .ONE JOSE Stop: 04/04/18 02:43 Ondansetron HCl (Zofran) 4 mg IVP Q6H PRN PRN Reason: Nausea/Vomiting Last Admin: 03/02/18 10:57 Dose: 4 mg Propofol (Diprivan) 1,000 mg IV INF PRN; Protocol PRN Reason: TO ACHIEVE GOAL RASS Stop: 04/04/18 02:43 Propofol (Diprivan Bolus) 20 mg IV Q5MIN PRN PRN Reason: BREAKTHROUGH AGITATION Stop: 04/04/18 02:43 Simethicone (Mylicon Chewable) 80 mg PO PCHS PRN PRN Reason: Gas Pain Last Admin: 02/27/18 21:04 Dose: 80 mg Sodium Chloride (Flush - Normal Saline) 10 ml IVF PRN PRN PRN Reason: Saline Flush Last Admin: 03/03/18 09:01 Dose: 10 ml
[2018-03-05] MEDS: Sodium Bicarbonate 100 MEQ in Dextrose 5% in Water 1,000 ML IV SCH (17:38)
[2018-03-05 17:53] LABS: Anion Gap 20 mmol/L (10-20); BUN (Urea Nitrogen) 13 mg/dL (9.8-20.1); Calc. Creatinine Clearance 27 mL/min (70-130); Calcium 7.6 mg/dL (7.8-10.44); Carbon Dioxide 18 mmol/L (23-31); Chloride 108 mmol/L (98-107); Estimated GFR-MDRD 24; Glucose 77 mg/dL (80-115); Potassium 3.2 mmol/L (3.5-5.1); Sodium 143 mmol/L (136-145)
[2018-03-05] MEDS ORDERED: EPINEPHrine 1 MG/10 ML Abboject SYRINGE ONE (19:48)
[2018-03-05] MEDS ORDERED: Calcium Chloride 1 GM/10 ML Abboject SYRINGE ONE (19:48)
[2018-03-05] MEDS ORDERED: Sodium Bicarb 50 MEQ/50 ML Abboject 8.4% SYRINGE ONE (19:48)
--- NOTE | 2018-03-05 20:01 | PDOC.EVN ---
Event Note - Event Note Event Note: Atteding CC Note. I supervised code blue this morning. See residents note and code record for details. Critical Care time was approximately 45 min.
[2018-03-06] MEDS ORDERED: Dextrose 50% Abboject 50 ML SYRINGE ONE (01:44)
[2018-03-06 02:20] LABS: pH, Arterial 7.23 (7.35-7.45)
[2018-03-06 02:21] LABS: Actual Bicarbonate (HCO3a) 9.3 mEq/L (22-28); Base Excess (BEa) -16.8 mEq/L (-2.0 to +3.0); CO2 Tension 22.7 mmHg (35.0-45.0); Hemoglobin (Hb) 7.3 g/dL (12.0-16.0); O2 Tension (PaO2) 69.8 mmHg (> 80.0)
[2018-03-06 02:22] LABS: Puncture Site ALINE
[2018-03-06 02:23] LABS: ALV-art Gradient 265.455 (0-20)
[2018-03-06] MEDS: Norepinephrine 16 MG in Sodium Chloride 0.9% 250 ML 250 ML IVPB PRN ×2 (03:46→18:40)
[2018-03-06] MEDS: Micafungin 100 MG in Sodium Chloride 0.9% 100 ML IVPB SCH (03:50)
[2018-03-06] MEDS: Hydrocortisone Sod Succ/PF 100 mg/2 ml Vial IVP SCH ×4 (03:56→21:50)
[2018-03-06 04:46] LABS: Prothrombin Time 46.8 SEC (12.0-14.7)
[2018-03-06 05:01] LABS: INR-International Normal Ratio 4.7
[2018-03-06 05:03] LABS: Band 35 % (5-11); Hemoglobin 7.9 g/dL (12.0-16.0); Lymphocytes 6 % (21-51); MDiff Complete? YES; Mean Corpuscular HGB CONC 33.2 g/dL (32.0-36.0); Mean Corpuscular Hemoglobin 30.9 pg (27.0-31.0); Mean Corpuscular Volume 93.3 fL (78.0-98.0); Mean Platelet Volume 8.7 fL (7.4-10.4); Metamyelocyte 1 % (0-0); Myelocyte 1 % (0-0); Neutrophil 57 % (42-75); Nucleated RBC 1 % (0); PLT Morphology Comment Appears Adequate; Platelet Count 151 thou/uL (130-400); RBC Distribution Width 15.8 % (11.5-14.5); Red Blood Cell (RBC) Count 2.56 mill/uL (4.20-5.40); White Blood Cell (WBC) Count 29.2 thou/uL (4.8-10.8)
[2018-03-06 05:17] LABS: Albumin 2.1 g/dL (3.4-4.8); Alkaline Phosphatase 193 U/L (40-150); Anion Gap 37 mmol/L (10-20); BUN (Urea Nitrogen) 19 mg/dL (9.8-20.1); Bilirubin, Total 1.8 mg/dL (0.2-1.2); Calc. Creatinine Clearance 18 mL/min (70-130); Calcium 8.3 mg/dL (7.8-10.44); Carbon Dioxide 9 mmol/L (23-31); Chloride 101 mmol/L (98-107); Estimated GFR-MDRD 15; Globulin 1.6 g/dL (2.4-3.5); Glucose 79 mg/dL (80-115); Potassium 5.7 mmol/L (3.5-5.1); Protein, Total 3.7 g/dL (6.0-8.3); Sodium 141 mmol/L (136-145)
[2018-03-06] MEDS: Sodium Bicarbonate 100 MEQ in Dextrose 5% in Water 1,000 ML IV SCH (05:17)
[2018-03-06] MEDS: Piperacillin/Tazobactam 2.25 GM in Sodium Chloride 0.9% 100 ML IVPB SCH ×3 (05:20→21:55)
[2018-03-06 05:30] LABS: ALT (SGPT) 4811 U/L (8-55); Lactic Acid 22.7 mmol/L (0.5-2.2)
[2018-03-06 07:23] LABS: pH, Arterial 7.43 (7.35-7.45)
[2018-03-06 07:24] LABS: Actual Bicarbonate (HCO3a) 12.2 mEq/L (22-28); Base Excess (BEa) -10.6 mEq/L (-2.0 to +3.0); CO2 Tension 18.6 mmHg (35.0-45.0); Calcium, Ionized 0.9 mmol/L (1.12-1.30); Hemoglobin (Hb) 8.3 g/dL (12.0-16.0); O2 Tension (PaO2) 91.7 mmHg (> 80.0); Puncture Site LINE
--- NOTE | 2018-03-06 08:06 | RAD ---
PRELIMINARY REPORT/[facility]/EMERGENTY AFTER-HOURS PROCEDURE Addendum created by Colton Cabrales MD on 03/06/2018 3:49 AM Central Time ([place] & [place]) Examination r esults of the patient were discussed with Dr. Bush on 03/06/2018 at 3:49 AM CDT [facility] [employer]. Initial Report created on 03/06/2018 3:47 AM Central Time ([place] & [place]) XR Chest, 1 View CLINICAL HISTORY: 67 years old, female; Shortness of breath; Possible tension pntx TECHNIQUE: Frontal view of the chest. COMPARISON: No relevant prior studies available. FINDINGS: Lungs: The right lung is clear. Pleural space: Complete medial collapse of the left lung with likely tension left pneumothorax. Sligh t shift of the superior mediastinum and heart to the right. Heart: Normal heart size. Mediastinum: Unremarkable. Bones/joints: Unremarkable. Tubes, lines and devices: Small caliber left chest tube tip is superimposed over the mid left hemitho rax. Tip of left PICC line may be located within a left internal mammary vein. Cardiac leads superimp osed over the chest bilaterally. IMPRESSION: 1. Complete medial collapse of the left lung with likely tension left pneumothorax. Slight shift of t he superior mediastinum and heart to the right. 2. Small caliber left chest tube tip is superimposed over the mid left hemithorax. 3. Tip of left PICC line may be located within a left internal mammary vein. Thank you for allowing us to participate in the care of your patient. Dictated and Authenticated by: Colton Cabrales MD 03/06/2018 3:47 AM Central Time ([place] & [place]) FINAL REPORT: ONE VIEW CHEST: Date: 03/06/18 HISTORY: Patient with possible tension pneumothorax. FINDINGS: Comparison made to previous exam from 03/05/18. AP view of chest demonstrates an again intubated patient to be noted. There has been placement of a left-sided Pneumo Cath. The left lung continues to further collapse and there is some shift of the mediastinum from left to right concerning for a tension pneumothorax. The NG tube is in good position. Left subclavian central line is again seen. IMPRESSION: Expanding left-sided pneumothorax with left-sided Pneumo Cath in place, although it appears to be kin ked in at least two spots. POS: [facility]
--- NOTE | 2018-03-06 08:12 | RAD ---
AP VIEW CHEST: Date: 03/06/18 HISTORY: Follow-up left-sided pneumothorax. FINDINGS: Comparison made to exam from earlier in the day. AP view of chest demonstrates nasogastric and endotracheal tubes to be in place. Again, left subclavi an central line is seen. There has been placement of a large caliber left-sided chest tube with reexpansion of the left lung. The left-sided Pneumo Cath has been removed. Areas of atelectasis are present in the left lower lobe posteriorly in the left lung base. Also noted is a right subclavian endovascular stent. IMPRESSION: Reexpansion of the left lung after placement of a large caliber left-sided chest tube. POS: [facility]
--- NOTE | 2018-03-06 08:37 | OP ---
DATE OF SERVICE: 03/06/2018 PREOPERATIVE DIAGNOSIS: Tension pneumothorax with occluded Heimlich valve, small caliber chest tube, left. POSTOPERATIVE DIAGNOSIS: Tension pneumothorax with occluded heimlich valve, small caliber chest tube , left. PROCEDURE: Left tube thoracostomy 28 Lao. SURGEON: Dr. Carlos Duckworth. ANESTHESIA: None (based on the ventilator, sedated). DESCRIPTION OF PROCEDURE: At 3:00 in the morning, left chest was prepared with ChloraPrep, draped in routine fashion. Incision was made over the left lateral chest and carried through the skin and sub cutaneous tissue, fifth intercostal space identified and the clamp placed over the rib into the left thorax released the large amount of air. A 28-Lao chest tube advanced into the chest, secured wit h 3-0 nylon suture, sterile dressing. Chest x-ray called, pending.
[2018-03-06] MEDS ORDERED: Sodium Bicarb 50 MEQ/50 ML Abboject 8.4% SYRINGE IVP SCH (09:00)
--- NOTE | 2018-03-06 09:26 | PRG ---
DATE OF SERVICE: 03/06/2018 SUBJECTIVE: Ms. Castro is a 67-year-old white female who was initially admitted for abdominal pain with nausea and vomiting and was found to have a small-bowel obstruction. She has undergone explora tory laparotomy with lysis of multiple adhesions as well as small bowel resection. The postop course was marred by cardiorespiratory arrest. Code was done. She was also noted to have developed a tens ion pneumothorax and a chest tube has been inserted. This morning the patient is noted to be hemodyn amically stable. Chest x-ray showed expansion of the lungs. She also was noted to have a low bicarbonate. For this reason, 1 ampule of sodium bicarbonate has be en ordered. She is also on a bicarbonate drip. PHYSICAL EXAMINATION: VITAL SIGNS: Blood pressure 101/36, heart rate 90, respiratory rate 33, pulse ox 100%. GENERAL: Sedated and intubated on ventilator support. SKIN: Adequate turgor. HEENT: She has slightly pale conjunctivae, anicteric sclerae. NECK: No neck mass, no carotid bruits, no JVD. CHEST: No deformities. LUNGS: Decreased breath sounds. Positive for a chest tube left. HEART: Normal sinus rhythm. No murmur, no gallops or rubs. ABDOMEN: Globular, soft, nontender. No masses. Positive for a urostomy and colostomy. EXTREMITIES: No edema, no deformities. MEDICATIONS: 03/06/2018 - Reviewed. LABORATORY: 03/06/2018 - White count 29.2, hemoglobin 7.9. Sodium 141, potassium 5.7, chloride 101, carbon dioxide 9, BUN 19, creatinine 3.09, glucose 79, lactic acid 22.7, albumin 2.1. ASSESSMENT AND PLAN: 1. End-stage renal disease, stable. Received hemodialysis yesterday with fluid removal. Yesterday she was noted to be hyperkalemic. Subsequent measurement of potassium improved from 6.7-4.7. Micky pinto it is 5.7. No indication for any acute dialysis this morning. 2. Mild hyperkalemia. Continue to observe. I feel that the metabolic acidosis may also be playing a factor in the slightly higher potassium this morning. One ampulla of sodium bicarbonate will also be given. 3. Metabolic acidosis - secondary to multifactorial etiology. This includes underlying sepsis. 4. Septic syndrome - the patient is currently on an antifungal as well as on IV antibiotics. 5. Chronic hypertension, on pressure support, p.r.n. IV fluids. 6. Status post exploratory laparotomy. Surgery is following. Continue supportive care. We will be rechecking another base met and CBC in the a.m.
[2018-03-06] MEDS: Docusate 100 MG CAP PO SCH ×2 (09:42→21:49)
[2018-03-06 09:47] LABS: AST (SGOT) Greater than 3500 U/L (5-34)
--- NOTE | 2018-03-06 10:11 | PRG ---
DATE OF SERVICE: 03/06/2018 SERVICE: Pulmonary Medicine INTERVAL HISTORY: The patient did poorly overnight. She had recurrence of her tension pneumothorax. Ultimately, large bore chest tube was placed. She has resolution of that event. She continues to have poor mentation. She is on no sedation. She will shake her head left and right and grimace with noxious stimuli. That being said, she is not doing anything of significant purpose. PHYSICAL EXAMINATION: VITAL SIGNS: Afebrile, pulse 92, blood pressure 104/37, respirations 39, saturation 99% on 41% FiO2 and a PEEP of 5. GENERAL: The patient is intubated. She is semi-comatose. HEENT: Normocephalic, atraumatic. Sclerae are white, conjunctivae pink. Oral mucosa is moist witho ut lesions. LUNGS: Decent air entry bilaterally. There is no prolonged expiratory phase. I do not appreciate w heezing. Rhonchi are present. No crackles. HEART: Normal rate, regular. ABDOMEN: Soft, nontender, nondistended. Bowel sounds are positive. MUSCULOSKELETAL: No cyanosis or clubbing. There is no pitting in the bilateral lower extremities. NEUROLOGIC: The left pupil is sluggish, but reactive. The right pupil is briskly reactive to light. She is overbreathing the ventilator comfortably. She withdraws from noxious stimuli. She grimaces . That being said, she is not following any commands or do anything purposeful. LABORATORY DATA: WBC 29.2 and gently down trending. Hemoglobin 7.9, platelets 151,000. INR 4.7 and down trending. PH 7.43, pCO2 18.6, pO2 92. Lactate 22.7, creatinine 3.09, anion gap 37, bicarbonat e 9, potassium 5.7. AST and ALT are both up trending. All cultures remain negative to date. ASSESSMENT: 1. Acute hypoxic respiratory failure. 2. Tension pneumothorax with recurrence. 3. Septic shock. 4. Gross peritonitis. 5. Small-bowel obstruction status post laparotomy and lysis of adhesions with excision of multiple s egments of small bowel. 6. Shock liver. 7. End-stage renal disease. 8. Multisystem organ. DISCUSSION AND PLAN: I will repeat a lactate and a hemoglobin this afternoon. We will give 2 units of FFP. If her hemoglobin drops off below 7, transfusions will be considered. We will wean away pre ssors as tolerated. I am going to watch her mentation very closely. There is a really good chance t hat she is not going to make a neurologic recovery from this hospital stay. Pulmonary Critical Care will continue to follow along. CRITICAL CARE TIME: 30 minutes.
[2018-03-06] MEDS: Famotidine/PF 20 mg/2ml Vial SLOW IVP SCH (10:28)
[2018-03-06] MEDS: Calcium Gluconate 4.6 MEQ in Sodium Chloride 0.9% 100 ML IVPB SCH ×2 (10:31→14:14)
--- NOTE | 2018-03-06 12:43 | PDOC.PN ---
- Subjective Encounter Start Date: 03/06/18 Encounter Start Time: 11:40 Pt seen for followup re: acute hypoxic respiratory failure. Intubated, unable to complete ROS. - Objective Resuscitation Status: Resuscitation Status FULL:Full Resuscitation MAR Reviewed: Yes Vital Signs & Weight: Vital Signs (12 hours) Temp Pulse Pulse Resp BP BP Pulse Ox 03/06/18 12:38 99.1 F 89 18 132/39 L 99 03/06/18 12:28 99.1 F 91 17 106/36 L 99 03/06/18 11:55 98.7 F 21 H 03/06/18 11:00 98.7 F 03/06/18 10:18 89 03/06/18 10:00 23 H 03/06/18 08:00 98.0 F 92 22 H 99 03/06/18 07:11 99 03/06/18 06:00 22 H 03/06/18 04:33 92 113/38 L 03/06/18 04:00 98 F 22 H 03/06/18 02:00 18 03/06/18 01:04 98 99/33 L Weight Admit Weight 145 lb 8.081 oz Weight 172 lb 4.8 oz Most Recent Monitor Data Heart Rate from ECG 92 NIBP 114/37 NIBP BP-Mean 60 Respiration from ECG 22 SpO2 99 I&O: 03/05/18 03/06/18 03/07/18 06:59 06:59 06:59 Intake Total 6368.3 4700.0 100 Output Total 345 595 70 Balance 6023.3 4105.0 30 Result Diagrams: 03/06/18 04:30 03/06/18 04:30 Additional Labs: Accuchecks 03/06/18 03/06/18 03/06/18 12:04 11:03 09:57 POC Glucose 94 97 92 03/06/18 03/06/18 03/06/18 08:59 08:31 07:32 POC Glucose 87 84 102 03/06/18 03/06/18 03/06/18 06:37 05:30 04:09 POC Glucose 104 108 109 03/06/18 03/06/18 03/05/18 02:56 01:41 23:54 POC Glucose 135 H 66 L 91 03/05/18 03/05/18 03/05/18 22:34 21:00 20:30 POC Glucose 82 93 106 06/19/18 06/19/18 06/19/18 19:03 18:03 17:07 POC Glucose 113 H 94 96 03/05/18 03/05/18 03/05/18 16:18 15:35 14:38 POC Glucose 107 122 H 165 H 03/05/18 13:05 POC Glucose 343 H EKG Reviewed by me: Yes (Tele: NSR) Phys Exam - Physical Examination Intubated HEENT: moist MMs, sclera anicteric ETT, OG tube Neck: no JVD Respiratory: no wheezing, no rales, no rhonchi, clear to auscultation bilateral Diminished air entry L; L chest tube Cardiovascular: RRR, no rub S1, S2 Gastrointestinal: soft, positive bowel sounds dressing, drains s/p L AKA Neurological: moves all 4 limbs Deviation from normal: Unable to assess mood, affect or orientation to person, place or time Dx/Plan (1) Septic shock Code(s): A41.9 - SEPSIS, UNSPECIFIED ORGANISM; R65.21 - SEVERE SEPSIS WITH SEPTIC SHOCK Status: Acute Comment: continue IV fluids, IV antibiotics as below (2) Metabolic acidosis Code(s): E87.2 - ACIDOSIS Status: Acute Comment: From sepsis, with lactic acidosis. Continue IV fluids, IV antibiotics as below. (3) Acute respiratory failure with hypoxia Code(s): J96.01 - ACUTE RESPIRATORY FAILURE WITH HYPOXIA Status: Acute Comment: continue IV antibiotics as below (4) Tension pneumothorax Code(s): J93.0 - SPONTANEOUS TENSION PNEUMOTHORAX Status: Acute Comment: s/ p decompression drain yesterday; had L chest drain placed today AM as well. (5) Bowel obstruction Code(s): K56.609 - UNSP INTESTNL OBST, UNSP TO PARTIAL VERSUS COMPLETE OBST Status: Acute Qualifiers: Intestinal obstruction type: unspecified Intestinal obstruction extent: unspecified extent Qualified Code(s): K56.609 - Unspecified intestinal obstruction, unspecified as to partial versus complete obstruction Comment: s/p surgery yesterday (6) Sepsis Code(s): A41.9 - SEPSIS, UNSPECIFIED ORGANISM Status: Suspected Qualifiers: Sepsis type: sepsis due to unspecified organism Qualified Code(s): A41.9 - Sepsis, unspecified organism Comment: blood cultures negative, ? peritonitis (7) ESRD (end stage renal disease) on dialysis Code(s): N18.6 - END STAGE RENAL DISEASE; Z99.2 - DEPENDENCE ON RENAL DIALYSIS Status: Chronic Comment: nephrology following (8) HLD (hyperlipidemia) Code(s): E78.5 - HYPERLIPIDEMIA, UNSPECIFIED Status: Chronic Qualifiers: Hyperlipidemia type: unspecified Qualified Code(s): E78.5 - Hyperlipidemia , unspecified (9) HTN (hypertension) Code(s): I10 - ESSENTIAL (PRIMARY) HYPERTENSION Status: Chronic Qualifiers: Hypertension type: essential hypertension Qualified Code(s): I10 - Essential (primary) hypertension Comment: currently hypotensive - Plan * . Review of Systems - Medications/Allergies Allergies/Adverse Reactions: Allergies Allergy/AdvReac Type Severity Reaction Status Date / Time Sulfa (Sulfonamide Allergy Verified 02/27/18 01:35 Antibiotics) Medications: Current Medications Acetaminophen (Tylenol) 650 mg PO Q4H PRN PRN Reason: Headache/Fever or Pain Last Admin: 03/03/18 12:01 Dose: 650 mg Albuterol/Ipratropium (Duoneb) 3 ml NEB [id number] PRN PRN Reason: SOB &/or Wheezing Docusate Sodium (Colace) 100 mg PO BID [facility] Last Admin: 03/06/18 09:42 Dose: 100 mg Epoetin Jimbo (Procrit) 10,000 units SC Q7D [facility] Last Admin: 03/04/18 10:29 Dose: 10,000 units Famotidine (Pepcid) 20 mg SLOW IVP DAILY [facility] Last Admin: 03/06/18 10:28 Dose: 20 mg Hydrocortisone Sodium Succinate (Solu-Cortef) 50 mg IVP 0300,0900,1500,2100 [facility] Last Admin: 03/06/18 09:42 Dose: 50 mg Piperacillin Sod/Tazobactam (Sod 2.25 gm/ Sodium Chloride) 100 mls @ 200 mls/ hr IVPB Q8HR [facility] Last Admin: 03/06/18 05:20 Dose: 100 mls Vasopressin 40 unit/Miscellaneous Medication 1 each/ Sodium Chloride 102 mls @ 0 mls/hr IV INF JOSE; As Directed PRN Reason: Protocol Last Admin: 03/05/18 13:13 Dose: 102 mls Norepinephrine Bitartrate 16 (mg/ Sodium Chloride) 266 mls @ 0 mls/hr IVPB INF PRN; Protocol; Titrate PRN Reason: Blood Pressure Last Admin: 03/06/18 03:46 Dose: 266 mls Dobutamine HCl/Dextrose (Dobutamine 500 Mg/250 Ml) 250 mls @ 10.029 mls/hr IVPB INF JOSE; 5 MCG/KG/MIN PRN Reason: Protocol Last Admin: 03/05/18 03:01 Dose: 250 mls Micafungin Sodium 100 mg/ (Sodium Chloride) 100 mls @ 100 mls/hr IVPB Q24HR JOSE Last Admin: 03/06/18 03:50 Dose: 100 mls Fentanyl Citrate 2,000 mcg/ (Sodium Chloride) 100 mls @ 0 mls/hr IV INF JOSE; Per Protocol PRN Reason: Protocol Stop: 04/04/18 02:43 Fentanyl Citrate (Fentanyl Bolus) 250 mls @ 0 mls/hr IVPB PRN PRN; As Directed PRN Reason: Breakthrough pain/agitation Stop: 04/04/18 02:43 Sodium Bicarbonate 100 meq/ (Dextrose/Water) 1,100 mls @ 75 mls/hr IV .[id number] JOSE Last Admin: 03/06/18 05:17 Dose: 1,100 mls Calcium Gluconate 4.6 meq/ (Sodium Chloride) 110 mls @ 200 mls/hr IVPB Q4H JOSE Stop: 03/06/18 14:32 Last Admin: 03/06/18 10:31 Dose: 110 mls Magnesium Hydroxide (Milk Of Magnesium) 30 ml PO BID PRN PRN Reason: Constipation Last Admin: 02/27/18 18:38 Dose: 30 ml Mineral Oil/White Petrolatum (Lacri-Lube Ointment) 0 gm EA EYE PRN PRN PRN Reason: Dry Eyes Discontinue Previous Narcotic Pain Medications And Benzodiazepines 1 each FS .ONE JOSE Stop: 04/04/18 02:43 Ondansetron HCl (Zofran) 4 mg IVP Q6H PRN PRN Reason: Nausea/Vomiting Last Admin: 03/02/18 10:57 Dose: 4 mg Propofol (Diprivan) 1,000 mg IV INF PRN; Protocol PRN Reason: TO ACHIEVE GOAL RASS Stop: 04/04/18 02:43 Propofol (Diprivan Bolus) 20 mg IV Q5MIN PRN PRN Reason: BREAKTHROUGH AGITATION Stop: 04/04/18 02:43 Simethicone (Mylicon Chewable) 80 mg PO PCHS PRN PRN Reason: Gas Pain Last Admin: 02/27/18 21:04 Dose: 80 mg Sodium Chloride (Flush - Normal Saline) 10 ml IVF PRN PRN PRN Reason: Saline Flush Last Admin: 03/03/18 09:01 Dose: 10 ml
--- NOTE | 2018-03-06 13:24 | EKG ---
Test Reason : Blood Pressure : / mmHG Vent. Rate : 096 BPM Atrial Rate : 096 BPM P-R Int : 150 ms QRS Dur : 082 ms QT Int : 350 ms P-R-T Axes : 070 -24 025 degrees QTc Int : 442 ms Normal sinus rhythm Voltage criteria for left ventricular hypertrophy Cannot rule out Septal infarct , age undetermined Abnormal ECG Confirmed by ARIANE SCALES ([id number]), staff editor DOMENIC IVEY ([id number]) on 03/06/2018 1:24:05 PM Referred By: Confirmed By:ARIANE SCALES
[2018-03-06 14:14] LABS: Hemoglobin 7.1 g/dL (12.0-16.0)
[2018-03-06 14:42] LABS: Anion Gap 32 mmol/L (10-20); BUN (Urea Nitrogen) 22 mg/dL (9.8-20.1); Calcium 7.9 mg/dL (7.8-10.44); Carbon Dioxide 16 mmol/L (23-31); Chloride 98 mmol/L (98-107); Glucose 88 mg/dL (80-115); Potassium 5.2 mmol/L (3.5-5.1); Sodium 141 mmol/L (136-145)
[2018-03-06 14:50] LABS: Calc. Creatinine Clearance 20 mL/min (70-130); Estimated GFR-MDRD 14
[2018-03-06 14:57] LABS: Lactic Acid 14.8 mmol/L (0.5-2.2)
--- NOTE | 2018-03-07 01:08 | PRG ---
DATE OF SERVICE: 03/06/2018 HISTORY OF PRESENT ILLNESS: Shannan Castro is a 67-year-old female seen for Dr. Montana. The patien t is in the ICU on the ventilator. She is on vasopressors. This morning at 3:00 a.m., had to place a chest tube for a tension pneumothorax to Heimlich valve, keeping kinking. Respiratory rate 19, hea rt rate 88, 107/36. White count 29,000, hemoglobin 7.9, 141, 5.2, and 98, carbon dioxide 16, BUN 22. Lactic acid 14.8. PHYSICAL EXAMINATION: LUNGS: Rhonchi. ABDOMEN: Soft. No bowel sounds. NING drain, serosanguineous. ASSESSMENT AND PLAN: 1. End-stage renal disease on dialysis. 2. Severe acidosis with on pressors. Continue current treatment. No other intervention at this brenda e. 3. Respiratory failure. 4. Tension pneumothorax, status post left tube thoracostomy for failed Heimlich tube for iatrogenic pneumothorax. 5. Multiple organ failure. Prognosis is overall poor, shock liver.
[2018-03-07] MEDS: Hydrocortisone Sod Succ/PF 100 mg/2 ml Vial IVP SCH ×4 (02:34→21:09)
[2018-03-07] MEDS: Micafungin 100 MG in Sodium Chloride 0.9% 100 ML IVPB SCH (02:51)
[2018-03-07 05:12] LABS: INR-International Normal Ratio 3.2; Prothrombin Time 33.8 SEC (12.0-14.7)
[2018-03-07 05:23] LABS: Anion Gap 24 mmol/L (10-20); BUN (Urea Nitrogen) 28 mg/dL (9.8-20.1); Calc. Creatinine Clearance 18 mL/min (70-130); Calcium 7.9 mg/dL (7.8-10.44); Carbon Dioxide 24 mmol/L (23-31); Chloride 96 mmol/L (98-107); Estimated GFR-MDRD 12; Glucose 132 mg/dL (80-115); Potassium 4.9 mmol/L (3.5-5.1); Sodium 139 mmol/L (136-145)
[2018-03-07 05:26] LABS: Lactic Acid 7.9 mmol/L (0.5-2.2)
[2018-03-07] MEDS: Piperacillin/Tazobactam 2.25 GM in Sodium Chloride 0.9% 100 ML IVPB SCH ×3 (05:27→21:08)
[2018-03-07] MEDS: Sodium Bicarbonate 100 MEQ in Dextrose 5% in Water 1,000 ML IV SCH (05:28)
[2018-03-07 05:31] LABS: Band 9 % (5-11); Hemoglobin 7.5 g/dL (12.0-16.0); Lymphocytes 14 % (21-51); MDiff Complete? YES; Mean Corpuscular HGB CONC 34.1 g/dL (32.0-36.0); Mean Corpuscular Hemoglobin 30.7 pg (27.0-31.0); Mean Corpuscular Volume 90.2 fL (78.0-98.0); Monocytes 3 % (0-10); Neutrophil 74 % (42-75); PLT Morphology Comment Appears Decreased; Platelet Count 99 thou/uL (130-400); RBC Distribution Width 15.3 % (11.5-14.5); Red Blood Cell (RBC) Count 2.42 mill/uL (4.20-5.40); White Blood Cell (WBC) Count 19.3 thou/uL (4.8-10.8)
[2018-03-07] MEDS: Famotidine/PF 20 mg/2ml Vial SLOW IVP SCH (08:54)
[2018-03-07] MEDS: Docusate 100 MG CAP PO SCH ×2 (08:55→21:04)
--- NOTE | 2018-03-07 08:57 | PRG ---
DATE OF SERVICE: 03/07/2018 SERVICE: Renal Medicine. SUBJECTIVE: Ms. Castro is a 67-year-old white female with ESRD and followed up by the [facility]al Serv[facility] e for her maintenance hemodialysis. She was admitted for a small-bowel obstruction. She has undergo ne exploratory laparotomy with small bowel resection. Her hospitalization has been marred by hemodyn amic instability. She has also developed tension pneumothorax, and a chest tube was subsequently nishant ena. She was also noted to be severely hypotensive and was placed on several pressor supports. In t he last 2 days, she has somewhat stabilized with her hemodynamics. No acute event noted last night. PHYSICAL EXAMINATION: VITAL SIGNS: Blood pressure is noted at 114/40 off pressors, heart rate 91, respiratory rate 21, pul se ox is 98%, and currently afebrile. GENERAL EXAM: The patient is sedated and intubated on ventilator support. SKIN: Adequate turgor. HEENT: She has a slightly pale conjunctivae. Anicteric sclerae. NECK: No neck mass, no carotid bruits, no JVD. CHEST: No deformities. LUNGS: Decreased breath sounds. HEART: Normal sinus rhythm. No murmur, no gallops, no rubs. ABDOMEN: Globular, soft, nontender, no masses. Positive for ostomies. Positive for surgical wound. EXTREMITIES: No edema, no deformities. Medications of 03/07/2018 was reviewed. LABORATORY DATA: Laboratories of 03/07/2018, white count 9.3, hemoglobin 7.5. Sodium 139, potassium 4.9, chloride 96, carbon dioxide 24, BUN 28, creatinine 3.66, glucose 132. Lactic acid is 7.9, calc ium is 7.9. ASSESSMENT AND PLAN: 1. End-stage renal disease, stable. We will continue current Sunday, , and Sunday hemodi alysis. Again, fluid removal only as tolerated by the patient. 2. Sepsis - on IV antibiotics as well as on antifungal medications. Continue supportive care. ID i s following. Please note white count has dropped. 3. Anemia, on weekly Epogen, p.r.n. blood transfusion. 4. Status post exploratory laparotomy with small bowel resection - this was done due to her bowel ob struction secondary to multiple adhesions. She was noted to have severe adhesions and surgical lysis was done by Dr. Montana. A long discussion about diagnosis and prognosis with this patient and with her daughter. Overall, pr izabellasis remains guarded.
--- NOTE | 2018-03-07 09:29 | PRG ---
DATE OF SERVICE: 03/07/2018 SERVICE: Pulmonary Medicine. INTERVAL HISTORY: The patient did well overnight. There were no significant overnight events. She remains on mechanical ventilation. Mentation celis, things have not improved very much. She still sh akes her head left and right, but is not following any directions. Otherwise, there is no interval c hange. PHYSICAL EXAMINATION: VITAL SIGNS: Afebrile, pulse 99, blood pressure 102/35, respirations 21, saturation 100% on 31% FiO2 . GENERAL: Patient is intubated. She is not under the influence of any sedation. HEENT: Normocephalic, atraumatic. Sclerae are white, conjunctivae pink. Oral and nasal mucosa is m oist without lesions. LUNGS: Decent air entry. Dependent crackles are present. Good air entry is present. HEART: Normal rate, regular. ABDOMEN: Soft, nontender, nondistended. Bowel sounds are positive. MUSCULOSKELETAL: No cyanosis or clubbing. There is no pitting in the bilateral lower extremities. NEUROLOGIC: Pupils are more briskly responsive today. She grimaces with noxious stimuli. She is no t demonstrating good withdrawal from all 3 of her extremities. LABORATORY DATA: WBC is down trending 19.3, hemoglobin 7.5 and roughly stable, platelets 99,000. IN R 3.2 and down trending, creatinine 3.66, BUN 28, anion gap 24, also improving, bicarbonate falls wit hin the normal limits. Basic metabolic profile is otherwise unremarkable. Lactic acid is down trend ing to 7.9. Urinalysis is unremarkable. Vancomycin trough is 21, blood cultures are negative to jude e. IMAGING: Chest x-ray demonstrates right-sided layering effusion. There is a left-sided thoracostomy drain, which is in good position. There is good expansion of the left lung. Left subclavian artery catheter is stable. ASSESSMENT: 1. Acute hypoxic respiratory failure. 2. Tension pneumothorax, status post chest tube placement. 3. Septic shock, resolving. 4. Gross peritonitis. 5. Small-bowel obstruction, status post laparotomy and lysis of adhesions with excision of multiple segments of small bowel. 6. Shock liver, improving. 7. End-stage renal disease. 8. Multisystem organ dysfunction. 9. Coagulopathy, improving. DISCUSSION AND PLAN: I will repeat a lactate tomorrow morning. From mentation celis, the patient is really not recovering. We will continue to support her just as we are for the next 24-48 hours. If she fails to make any significant neurologic improvement, we will discuss whether or not be appropria te to transition over comfort care. Pulmonary and Critical Care will continue to follow along. CRITICAL CARE TIME: 30 minutes.
--- NOTE | 2018-03-07 10:06 | RAD ---
PORTABLE SEMIUPRIGHT FRONTAL CHEST RADIOGRAPH: Date: 03/07/18 Time: 0505 hours COMPARISON: 03/06/18. HISTORY: Intubated patient. FINDINGS: There is an endotracheal tube projecting over the tracheal air column, terminating just above the lev el of the clavicular heads. Nasogastric tube extends into the upper abdomen. Chest tube overlies the left hemithorax. It appears kinked distally in the suprahilar region, a stable finding. There is a vascular catheter present overlying the left lung apex which terminates over the region of the aortic arch, its distal tip directed laterally to the left, location uncertain. There is increas ed density in both lung bases suggesting a combination of pleural fluid and volume loss/air space dis ease. IMPRESSION: Lines and tubes as above. Bibasilar pleural and parenchymal opacity, nonspecific. Vascular catheter overlies the right lung apex/supraclavicular region. Exact location is uncertain as it terminates over the aorta. This could potentially be arterial in nature. Dr Qureshi made aware at 8 am on 03/06/2018. CODE T. POS: [facility]
--- NOTE | 2018-03-07 13:25 | OP ---
DATE OF PROCEDURE: 03/05/2018 SERVICE: Pulmonary Medicine. PROCEDURE PERFORMED: Left-sided thoracostomy tube placement under emergent conditions. CONSENT: The risks and benefits of this procedure were implied as this was an emergent situation. STAFF PHYSICIAN: Chong Qureshi M.D. MEDICATIONS USED: None. PREOPERATIVE DIAGNOSES: 1. Acute hypoxic respiratory failure. 2. Shock. 3. Tension pneumothorax. POSTPROCEDURE DIAGNOSES: 1. Acute hypoxic respiratory failure. 2. Shock. 3. Tension pneumothorax. DESCRIPTION OF PROCEDURE: A timeout was performed by the procedure team. The patient was positively identified using name and date of . The procedure site was marked. Vital sign monitoring was accomplished by noninvasive hemodynamic monitoring, pulse oximetry, and telemetry. In the supine position, the left anterior hemithorax was prepped and draped in sterile fashion. A finder needle was inserted in the second intercostal space at the mid clavicular line with return of air. A pleural drainage catheter was then inserted in the same location and a gush of air occurred. The patient's blood pressure immediately improved. It was connected to suction and a significant amount of air was evacuated. Ultimately, the air stopped coming. Her hemodynamics improved. It was sutured in place with 3-0 silk suture x1. ESTIMATED BLOOD LOSS: Less than 1 mL. COMPLICATIONS: None. MTDD
[2018-03-07] MEDS ORDERED: Sodium Chloride 0.9% 1,000 ML IV SCH (15:00)
--- NOTE | 2018-03-07 15:29 | PDOC.PN ---
- Subjective Encounter Start Date: 03/07/18 Encounter Start Time: 10:20 Pt seen for followup re: septis shock. Intubated and mechanically ventilated, unable to complete ROS. - Objective Resuscitation Status: Resuscitation Status FULL:Full Resuscitation MAR Reviewed: Yes Vital Signs & Weight: Vital Signs (12 hours) Temp Pulse Pulse Resp BP BP Pulse Ox 03/07/18 14:20 90 03/07/18 13:50 11 L 03/07/18 11:50 98.1 F 15 03/07/18 10:40 86 03/07/18 10:18 98.1 F 90 14 138/43 L 100 03/07/18 09:53 98.0 F 12 03/07/18 09:51 98.0 F 92 15 131/39 L 100 03/07/18 09:42 98.0 F 90 17 123/41 L 100 03/07/18 08:00 98.5 F 99 19 100 03/07/18 06:47 85 03/07/18 06:00 15 03/07/18 05:00 97.8 F 03/07/18 04:00 13 03/07/18 03:53 84 123/45 L Weight Admit Weight 145 lb 8.081 oz Weight 171 lb 8.314 oz Most Recent Monitor Data Heart Rate from ECG 92 NIBP 114/40 NIBP BP-Mean 73 Respiration from ECG 22 SpO2 100 I&O: 03/06/18 03/07/18 03/08/18 06:59 06:59 06:59 Intake Total 4700.0 2645 900 Output Total 595 580 332 Balance 4105.0 2065 568 Result Diagrams: 03/07/18 04:30 03/07/18 04:30 Additional Labs: Accuchecks 03/07/18 03/07/18 03/06/18 09:56 03:35 22:12 POC Glucose 149 H 142 H 126 H 03/06/18 15:58 POC Glucose 106 EKG Reviewed by me: Yes (Tele: NSR) Phys Exam - Physical Examination Intubated HEENT: moist MMs, sclera anicteric ETT, OGTube Respiratory: no wheezing, no rales, no rhonchi, clear to auscultation bilateral L chest tube Cardiovascular: RRR, no rub S1, S2 Gastrointestinal: soft, non-tender ostomies, drains No spontaneous movements of four limbs Deviation from normal: Unable to assess mood, affect or orientation to person, place or time Dx/Plan (1) Septic shock Code(s): A41.9 - SEPSIS, UNSPECIFIED ORGANISM; R65.21 - SEVERE SEPSIS WITH SEPTIC SHOCK Status: Acute Comment: continue pressors, IV fluids and IV antibiotics as below (2) Acute respiratory failure with hypoxia Code(s): J96.01 - ACUTE RESPIRATORY FAILURE WITH HYPOXIA Status: Acute Comment: continue IV antibiotics as below (3) Tension pneumothorax Code(s): J93.0 - SPONTANEOUS TENSION PNEUMOTHORAX Status: Acute Comment: L chest tube in place (4) Bowel obstruction Code(s): K56.609 - UNSP INTESTNL OBST, UNSP TO PARTIAL VERSUS COMPLETE OBST Status: Acute Qualifiers: Intestinal obstruction type: unspecified Intestinal obstruction extent: unspecified extent Qualified Code(s): K56.609 - Unspecified intestinal obstruction, unspecified as to partial versus complete obstruction Comment: s/p surgery (5) Sepsis Code(s): A41.9 - SEPSIS, UNSPECIFIED ORGANISM Status: Suspected Qualifiers: Sepsis type: sepsis due to unspecified organism Qualified Code(s): A41.9 - Sepsis, unspecified organism Comment: blood cultures negative, ? peritonitis (6) ESRD (end stage renal disease) on dialysis Code(s): N18.6 - END STAGE RENAL DISEASE; Z99.2 - DEPENDENCE ON RENAL DIALYSIS Status: Chronic Comment: nephrology following for maintainance dialysis (7) HLD (hyperlipidemia) Code(s): E78.5 - HYPERLIPIDEMIA, UNSPECIFIED Status: Chronic Qualifiers: Hyperlipidemia type: unspecified Qualified Code(s): E78.5 - Hyperlipidemia , unspecified (8) HTN (hypertension) Code(s): I10 - ESSENTIAL (PRIMARY) HYPERTENSION Status: Chronic Qualifiers: Hypertension type: essential hypertension Qualified Code(s): I10 - Essential (primary) hypertension Comment: currently hypotensive (9) Metabolic acidosis Code(s): E87.2 - ACIDOSIS Status: Resolved - Plan * . Review of Systems - Medications/Allergies Allergies/Adverse Reactions: Allergies Allergy/AdvReac Type Severity Reaction Status Date / Time Sulfa (Sulfonamide Allergy Verified 02/27/18 01:35 Antibiotics) Medications: Current Medications Acetaminophen (Tylenol) 650 mg PO Q4H PRN PRN Reason: Headache/Fever or Pain Last Admin: 03/03/18 12:01 Dose: 650 mg Albuterol/Ipratropium (Duoneb) 3 ml NEB Q3GY-OO PRN PRN Reason: SOB &/or Wheezing Docusate Sodium (Colace) 100 mg PO BID [facility] Last Admin: 03/07/18 08:55 Dose: Not Given Epoetin Jimbo (Procrit) 10,000 units SC Q7D [facility] Last Admin: 03/04/18 10:29 Dose: 10,000 units Famotidine (Pepcid) 20 mg SLOW IVP DAILY [facility] Last Admin: 03/07/18 08:54 Dose: 20 mg Hydrocortisone Sodium Succinate (Solu-Cortef) 50 mg IVP 0300,0900,1500,2100 [facility] Last Admin: 03/07/18 14:05 Dose: 50 mg Piperacillin Sod/Tazobactam (Sod 2.25 gm/ Sodium Chloride) 100 mls @ 200 mls/ hr IVPB Q8HR [facility] Last Admin: 03/07/18 14:04 Dose: 100 mls Norepinephrine Bitartrate 16 (mg/ Sodium Chloride) 266 mls @ 0 mls/hr IVPB INF PRN; Protocol; Titrate PRN Reason: Blood Pressure Last Admin: 03/06/18 18:40 Dose: 266 mls Micafungin Sodium 100 mg/ (Sodium Chloride) 100 mls @ 100 mls/hr IVPB Q24HR [facility] Last Admin: 03/07/18 02:51 Dose: 100 mls Sodium Chloride (Normal Saline 0.9%) 1,000 mls @ 0 mls/hr IV .Q0M [facility] PRN Reason: TKO Magnesium Hydroxide (Milk Of Magnesium) 30 ml PO BID PRN PRN Reason: Constipation Last Admin: 02/27/18 18:38 Dose: 30 ml Mineral Oil/White Petrolatum (Lacri-Lube Ointment) 0 gm EA EYE PRN PRN PRN Reason: Dry Eyes Discontinue Previous Narcotic Pain Medications And Benzodiazepines 1 each FS .ONE [facility] Stop: 04/04/18 02:43 Ondansetron HCl (Zofran) 4 mg IVP Q6H PRN PRN Reason: Nausea/Vomiting Last Admin: 03/02/18 10:57 Dose: 4 mg Simethicone (Mylicon Chewable) 80 mg PO PCHS PRN PRN Reason: Gas Pain Last Admin: 02/27/18 21:04 Dose: 80 mg Sodium Chloride (Flush - Normal Saline) 10 ml IVF PRN PRN PRN Reason: Saline Flush Last Admin: 03/03/18 09:01 Dose: 10 ml
--- NOTE | 2018-03-07 20:29 | PRG ---
DATE OF SERVICE: 03/07/2018 SUBJECTIVE: Ms. Castro is doing well in the ICU. She is intubated. She is off pressors. OBJECTIVE: VITAL SIGNS: Heart rate 86, blood pressure 114/40. HEAD, EARS, EYES, NOSE, AND THROAT: Unremarkable. LUNGS: Clear to auscultation. CARDIAC: Regular rate and rhythm without murmur or gallop. ABDOMEN: Soft. Diminished bowel sounds. EXTREMITIES: Unremarkable. Ostomy has stool output. NING drainage is serosanguineous. White count is 19,000 down from 29,000, hemoglobin 7.5. Her acidosis is improved. CO2 is 24. Overall, the patient is doing well, better. Continue support. We will start TPN probably tomorrow. We will ask dietary for their recommendations.
[2018-03-08] MEDS: Micafungin 100 MG in Sodium Chloride 0.9% 100 ML IVPB SCH (03:22)
[2018-03-08] MEDS: Hydrocortisone Sod Succ/PF 100 mg/2 ml Vial IVP SCH ×4 (03:22→20:27)
[2018-03-08 05:07] LABS: Lactic Acid 3.9 mmol/L (0.5-2.2)
[2018-03-08 05:12] LABS: ALT (SGPT) 2559 U/L (8-55); AST (SGOT) 1851 U/L (5-34); Alkaline Phosphatase 293 U/L (40-150); Bilirubin, Direct 3.2 mg/dL (0.1-0.3); Bilirubin, Total 4.2 mg/dL (0.2-1.2); Magnesium 1.6 mg/dL (1.6-2.6); Phosphorus 4.4 mg/dL (2.3-4.7); Protein, Total 3.8 g/dL (6.0-8.3)
[2018-03-08] MEDS: Piperacillin/Tazobactam 2.25 GM in Sodium Chloride 0.9% 100 ML IVPB SCH ×3 (06:12→23:24)
[2018-03-08 06:39] LABS: Hemoglobin 9.1 g/dL (12.0-16.0); Mean Corpuscular HGB CONC 33.8 g/dL (32.0-36.0); Mean Corpuscular Hemoglobin 30.9 pg (27.0-31.0); Mean Corpuscular Volume 91.4 fL (78.0-98.0); Mean Platelet Volume 8.5 fL (7.4-10.4); Platelet Count 93 thou/uL (130-400); RBC Distribution Width 14.7 % (11.5-14.5); Red Blood Cell (RBC) Count 2.93 mill/uL (4.20-5.40); White Blood Cell (WBC) Count 16.5 thou/uL (4.8-10.8)
[2018-03-08 06:40] LABS: Anisocytosis SLIGHT = 6-15 cells (100X) (0-5/hpf); Band 16 % (5-11); Lymphocytes 11 % (21-51); MDiff Complete? YES; Monocytes 5 % (0-10); Neutrophil 68 % (42-75); Nucleated RBC 1 % (0); PLT Morphology Comment Appears Decreased
--- NOTE | 2018-03-08 08:26 | RAD ---
SINGLE VIEW OF THE CHEST: COMPARISON: 03/07/18. HISTORY: Intubated patient with respiratory failure. FINDINGS: A single view of the chest shows an enlarged but stable cardiomediastinal silhouette. The lines and tubes are unchanged in position. There is a small to moderate left pleural effusion. No pneumothora x is seen. IMPRESSION: Stable left pleural effusion. POS: [facility]
--- NOTE | 2018-03-08 10:01 | ULT ---
RIGHT UPPER QUADRANT ULTRASOUND: History: Cholestasis and jaundice. Technique: Multiplanar grayscale and color doppler images were obtained in a right upper quadrant abd ominal ultrasound. FINDINGS: This exam is limited secondary to patient's condition. A small amount of free fluid is seen adjacent to the liver. The liver is normal in echogenicity without focal lesions or intrahepatic ductal dilata tion. The gallbladder is normal without stones, sludge, gallbladder wall thickening, or pericholecystic flu id. The common bile duct is normal measuring 5 mm. The pancreas and right kidney cannot be adequately visualized. IMPRESSION: 1. Trace ascites. 2. Nonvisualization of the right kidney. This could be secondary to renal atrophy or prior nephrectom y. POS: [facility]
[2018-03-08] MEDS: Docusate 100 MG CAP PO SCH ×2 (10:40→20:26)
[2018-03-08] MEDS: Famotidine/PF 20 mg/2ml Vial SLOW IVP SCH (10:40)
--- NOTE | 2018-03-08 12:07 | PRG ---
DATE OF SERVICE: 03/08/2018 SERVICE: Pulmonary Medicine. INTERVAL HISTORY: There were no significant overnight events. She cannot provide any additional elements of the history. Her mentation is slightly more intact today. That being said, she is quite far from baseline. She is not following any commands. That being said, today when you call her name, she will spontaneously open up her eyes. She looks around in a rapid way and does not attend currently. She is slightly more responsive with withdrawal from noxious stimuli in the bilateral. PHYSICAL EXAMINATION: VITAL SIGNS: Afebrile, pulse 97, blood pressure 93/36, respirations 22, saturation 96% on 31% FiO2 and a PEEP of 5. GENERAL: Patient is intubated. She is under the influence of no sedation. HEENT: Normocephalic, atraumatic. Sclerae are white, conjunctivae pink. Oral mucosa is moist without lesions. LUNGS: Decent air entry bilaterally. I do not appreciate a prolonged expiratory phase. There is no rhonchi or crackles present today. HEART: Normal rate and regular. ABDOMEN: Soft, nontender, nondistended. Bowel sounds are positive. MUSCULOSKELETAL: No cyanosis or clubbing. There is trace 1+ pitting in the left lower extremity. GENITOURINARY: No Arre[place]. NEUROLOGIC: She spontaneously opens up her eyes when you call her name loudly. She does look around a little bit, but does not attend. She has got more brisk withdrawal from noxious stimuli in the bilateral upper extremities. She does not withdraw from the left lower extremity. She does demonstrate grimace. LABORATORY DATA: WBC 16.5 and down trending. Hemoglobin 9.1, platelets 93,000 and roughly stable at this time. Liver function studies including AST and ALT are down trending. Magnesium and phosphorus fall within the normal limits. Total bilirubin is 4.2 and continues to trend upward. Microbiology including blood culture and urine culture are negative to date. IMAGING DATA: 1. Chest x-ray demonstrates stable left side thoracostomy drain. 2. Abdominal ultrasound demonstrates trace ascites. Nonvisualization of the right kidney. Otherwise, there is no acute belly process. ASSESSMENT: 1. Acute hypoxic respiratory failure. 2. Tension pneumothorax 3. Status post chest tube placement. 4. Septic shock, resolved. 5. Gross peritonitis. 6. Small-bowel obstruction, status post laparotomy and lysis of adhesions. 7. Shock liver. 8. Metabolic encephalopathy, likely secondary to hepatic insufficiency. 9. Multisystem organ dysfunction. 10. Coagulopathy, improving. DISCUSSION AND PLAN: I will repeat an INR tomorrow morning. We will replace magnesium. Nutrition per General Surgery. I am hopeful that the patient's encephalopathy is coming from a metabolic process that should improve once the liver injury is cleared. The alternative possibility is that the patient is suffering from an anoxic brain injury. Time will tell on this. We will discuss replacing the line with surgery, but I certainly would not move the left subclavian artery line until after her coagulopathy is much improved. Critical care time: 30 minutes. SHERLY
[2018-03-08 12:20] VITALS: BMI 32.5
--- NOTE | 2018-03-08 17:19 | PDOC.PN ---
- Subjective Encounter Start Date: 03/08/18 Encounter Start Time: 17:21 -: non-verbal Pt seen for followup re; septic shock. Intubated, unable to complete ROS - Objective Resuscitation Status: Resuscitation Status FULL:Full Resuscitation MAR Reviewed: Yes Vital Signs & Weight: Vital Signs (12 hours) Temp Pulse Resp BP Pulse Ox 03/08/18 16:00 18 03/08/18 14:00 14 03/08/18 13:58 92 85/30 L 03/08/18 12:00 97.7 F 14 03/08/18 10:00 23 H 03/08/18 08:00 98.1 F 29 H 03/08/18 06:15 97 03/08/18 06:14 93 114/38 L 03/08/18 06:00 13 Weight Admit Weight 145 lb 8.081 oz Weight 172 lb 2.896 oz Most Recent Monitor Data Heart Rate from ECG 94 NIBP 93/41 NIBP BP-Mean 54 Respiration from ECG 27 SpO2 95 I&O: 03/07/18 03/08/18 03/09/18 06:59 06:59 06:59 Intake Total 2645 1355 30 Output Total 580 837 160 Balance 2065 518 -130 Result Diagrams: 03/08/18 04:25 03/07/18 04:30 Additional Labs: Accuchecks 03/08/18 03/08/18 03/08/18 16:12 11:17 04:30 POC Glucose 79 78 86 03/07/18 22:50 POC Glucose 74 EKG Reviewed by me: Yes (Tele: NSR) Phys Exam - Physical Examination Obese, intubated HEENT: moist MMs Scleral icterus, OGT, ETT Respiratory: no wheezing, no rales, no rhonchi, clear to auscultation bilateral L chest tube Cardiovascular: RRR, no rub S1, S2 Gastrointestinal: soft, non-tender ostomies, drain Musculoskeletal: edema present No spontaneous movements of the four extremities Deviation from normal: Unable to assess mood, affect or orientation to person, place or time Dx/Plan (1) Septic shock Code(s): A41.9 - SEPSIS, UNSPECIFIED ORGANISM; R65.21 - SEVERE SEPSIS WITH SEPTIC SHOCK Status: Acute Comment: continue IV antibiotics as below (2) Abnormal LFTs Code(s): R94.5 - ABNORMAL RESULTS OF LIVER FUNCTION STUDIES Status: Acute Comment: Trending down, no clear etiology (3) Acute respiratory failure with hypoxia Code(s): J96.01 - ACUTE RESPIRATORY FAILURE WITH HYPOXIA Status: Acute Comment: Intubated and mechanically ventilated in CCU (4) Tension pneumothorax Code(s): J93.0 - SPONTANEOUS TENSION PNEUMOTHORAX Status: Acute Comment: L chest tube+ (5) Bowel obstruction Code(s): K56.609 - UNSP INTESTNL OBST, UNSP TO PARTIAL VERSUS COMPLETE OBST Status: Acute Qualifiers: Intestinal obstruction type: unspecified Intestinal obstruction extent: unspecified extent Qualified Code(s): K56.609 - Unspecified intestinal obstruction, unspecified as to partial versus complete obstruction Comment: s/p surgery (6) ESRD (end stage renal disease) on dialysis Code(s): N18.6 - END STAGE RENAL DISEASE; Z99.2 - DEPENDENCE ON RENAL DIALYSIS Status: Chronic Comment: nephrology following for maintainance dialysis (7) HLD (hyperlipidemia) Code(s): E78.5 - HYPERLIPIDEMIA, UNSPECIFIED Status: Chronic Qualifiers: Hyperlipidemia type: unspecified Qualified Code(s): E78.5 - Hyperlipidemia , unspecified (8) HTN (hypertension) Code(s): I10 - ESSENTIAL (PRIMARY) HYPERTENSION Status: Chronic Qualifiers: Hypertension type: essential hypertension Qualified Code(s): I10 - Essential (primary) hypertension Comment: currently hypotensive (9) Metabolic acidosis Code(s): E87.2 - ACIDOSIS Status: Resolved - Plan * . Review of Systems - Medications/Allergies Allergies/Adverse Reactions: Allergies Allergy/AdvReac Type Severity Reaction Status Date / Time Sulfa (Sulfonamide Allergy Verified 02/27/18 01:35 Antibiotics) Medications: Current Medications Acetaminophen (Tylenol) 650 mg PO Q4H PRN PRN Reason: Headache/Fever or Pain Last Admin: 03/03/18 12:01 Dose: 650 mg Albuterol/Ipratropium (Duoneb) 3 ml NEB [id number] PRN PRN Reason: SOB &/or Wheezing Docusate Sodium (Colace) 100 mg PO BID [facility] Last Admin: 03/08/18 10:40 Dose: 100 mg Epoetin Jimbo (Procrit) 10,000 units SC Q7D [facility] Last Admin: 03/04/18 10:29 Dose: 10,000 units Famotidine (Pepcid) 20 mg SLOW IVP DAILY [facility] Last Admin: 03/08/18 10:40 Dose: 20 mg Hydrocortisone Sodium Succinate (Solu-Cortef) 50 mg IVP 0300,0900,1500,2100 [facility] Last Admin: 03/08/18 14:33 Dose: 50 mg Piperacillin Sod/Tazobactam (Sod 2.25 gm/ Sodium Chloride) 100 mls @ 200 mls/ hr IVPB Q8HR [facility] Last Admin: 03/08/18 14:32 Dose: 100 mls Norepinephrine Bitartrate 16 (mg/ Sodium Chloride) 266 mls @ 0 mls/hr IVPB INF PRN; Protocol; Titrate PRN Reason: Blood Pressure Last Admin: 03/06/18 18:40 Dose: 266 mls Micafungin Sodium 100 mg/ (Sodium Chloride) 100 mls @ 100 mls/hr IVPB Q24HR [facility] Last Admin: 03/08/18 03:22 Dose: 100 mls Sodium Chloride (Normal Saline 0.9%) 1,000 mls @ 0 mls/hr IV .Q0M [facility] PRN Reason: TKO Magnesium Hydroxide (Milk Of Magnesium) 30 ml PO BID PRN PRN Reason: Constipation Last Admin: 02/27/18 18:38 Dose: 30 ml Mineral Oil/White Petrolatum (Lacri-Lube Ointment) 0 gm EA EYE PRN PRN PRN Reason: Dry Eyes Discontinue Previous Narcotic Pain Medications And Benzodiazepines 1 each FS .ONE [facility] Stop: 04/04/18 02:43 Ondansetron HCl (Zofran) 4 mg IVP Q6H PRN PRN Reason: Nausea/Vomiting Last Admin: 03/02/18 10:57 Dose: 4 mg Simethicone (Mylicon Chewable) 80 mg PO PCHS PRN PRN Reason: Gas Pain Last Admin: 02/27/18 21:04 Dose: 80 mg Sodium Chloride (Flush - Normal Saline) 10 ml IVF PRN PRN PRN Reason: Saline Flush Last Admin: 03/03/18 09:01 Dose: 10 ml
[2018-03-08] MEDS: Acetaminophen 325 MG TAB PO PRN (17:30)
[2018-03-08] MEDS: Norepinephrine 16 MG in Sodium Chloride 0.9% 250 ML 250 ML IVPB PRN (18:32)
--- NOTE | 2018-03-08 23:36 | PRG ---
DATE OF SERVICE: 03/08/2018 SUBJECTIVE: Shannan Castro is off vasopressors, although her blood pressure is marginal currently 10 03/12, heart rate 87, respiratory rate 52. Gastric drainage 20 mL in last 24 hours. She has stool in her colostomy. NING drains 180-120 serosanguineous. OBJECTIVE: LUNGS: Clear to auscultation. CARDIAC: Regular rate and rhythm without murmur or gallop. ABDOMEN: Soft. Colostomy output. ASSESSMENT AND PLAN: 1. End-stage renal disease. Continue dialysis per Nephrology. 2. Respiratory failure. Continue ventilatory support. 3. Status post major laparotomy, small bowel resection. GI function is returning. Continue support dione care. Consider starting TPN soon and would consider enteric feedings in the near future, pending clinical course.
--- NOTE | 2018-03-08 23:47 | PRG ---
SUBJECTIVE: Ms. Castro is a 67-year-old white female with ESRD and being followed up for her maintenance hemodialysis. I examined the patient today. There is no indication for any emergent hemodialysis. She is more responsive today. She has some spontaneous eye opening. Please note with this hospitalization, she was admitted for a small bowel obstruction, underwent exploratory laparotomy with some small bowel resection. This was marred by development of hemodynamic instability. She also developed tension pneumothorax. A chest tube has been inserted. OBJECTIVE: VITAL SIGNS: Blood pressure is noted at 104/40 with a heart rate of 63, respiratory rate 17, pulse ox 99%. GENERAL: The patient is lethargic. Slightly arousable, but not following commands. She is noted to be intubated, on ventilator support. HEENT: Slightly pale conjunctivae. Anicteric sclerae. NECK: No neck mass. No carotid bruits. No JVD. CHEST: No deformities. LUNGS: Decreased breath sounds. HEART: Normal sinus rhythm. No murmur. No gallops. No rubs. ABDOMEN: Globular, soft, nontender. No masses. Positive for ostomies. EXTREMITIES: No edema. No deformities. MEDICATIONS: Medications of 03/08/2018 was reviewed. LABORATORY DATA: On 03/08/2018, white count 16.5, hemoglobin 9.1. On 2017, phosphorus 4.4, magnesium 1.6, AST 1851, ALT 2559. On 03/07/2018, BUN 28 , creatinine 3.66. Chest x-ray of 03/08/2018 shows a stable left pleural effusion. Ultrasound of the abdomen 03/08/2018, trace ascites. ASSESSMENT AND PLAN: 1. End-stage renal disease, stable. Continuing Sunday, , and Sunday hemodialysis regimen. Fluid removal as tolerated. 2. Sepsis syndrome - on empiric IV antibiotics. She is also currently on antifungal. 3. Chronic anemia - p.r.n. blood transfusion. Continue weekly Epogen with this patient. 4. Small bowel obstruction - the patient is status post exploratory laparotomy , stable, more hemodynamically stable. Agree with current management. Overall prognosis remains guarded with this patient. MTDD
[2018-03-09] MEDS: Hydrocortisone Sod Succ/PF 100 mg/2 ml Vial IVP SCH ×4 (03:37→22:27)
[2018-03-09] MEDS: Micafungin 100 MG in Sodium Chloride 0.9% 100 ML IVPB SCH (03:37)
[2018-03-09 04:05] LABS: INR-International Normal Ratio 3.5
[2018-03-09 04:14] LABS: Band 7 % (5-11); Hemoglobin 9.6 g/dL (12.0-16.0); Lymphocytes 3 % (21-51); MDiff Complete? YES; Mean Corpuscular HGB CONC 33.5 g/dL (32.0-36.0); Mean Corpuscular Hemoglobin 30.3 pg (27.0-31.0); Mean Corpuscular Volume 90.5 fL (78.0-98.0); Mean Platelet Volume 8.2 fL (7.4-10.4); Monocytes 3 % (0-10); Neutrophil 87 % (42-75); Platelet Count 139 thou/uL (130-400); Polychromasia SLIGHT = 2-3 cells (100X) (0-2/hpf); RBC Distribution Width 14.7 % (11.5-14.5); Red Blood Cell (RBC) Count 3.17 mill/uL (4.20-5.40); White Blood Cell (WBC) Count 32.9 thou/uL (4.8-10.8)
[2018-03-09 04:28] LABS: Magnesium 1.9 mg/dL (1.6-2.6); Phosphorus 6.6 mg/dL (2.3-4.7)
[2018-03-09] MEDS: Piperacillin/Tazobactam 2.25 GM in Sodium Chloride 0.9% 100 ML IVPB SCH ×3 (05:33→22:30)
--- NOTE | 2018-03-09 08:19 | RAD ---
SINGLE VIEW OF THE CHEST: COMPARISON: 03/08/18. HISTORY: Intubated patient with respiratory failure. FINDINGS: A single view of the chest shows a cardiomediastinal silhouette which is enlarged but stable in size. The lines and tubes are unchanged in position. No pneumothorax is appreciated. There is a small l eft pleural effusion. IMPRESSION: Small left pleural effusion. POS: [facility]
[2018-03-09 08:20] LABS: ALT (SGPT) 1790 U/L (8-55); AST (SGOT) 753 U/L (5-34); Alkaline Phosphatase 364 U/L (40-150); Anion Gap 20 mmol/L (10-20); BUN (Urea Nitrogen) 34 mg/dL (9.8-20.1); Calc. Creatinine Clearance 24 mL/min (70-130); Calcium 9.8 mg/dL (7.8-10.44); Carbon Dioxide 25 mmol/L (23-31); Chloride 99 mmol/L (98-107); Estimated GFR-MDRD 17; Glucose 100 mg/dL (80-115); Potassium 4.6 mmol/L (3.5-5.1); Sodium 139 mmol/L (136-145)
[2018-03-09] MEDS: Famotidine/PF 20 mg/2ml Vial SLOW IVP SCH (10:36)
[2018-03-09] MEDS: Docusate 100 MG CAP PO SCH ×2 (10:36→22:27)
[2018-03-09] MEDS ORDERED: Pancrelipase DR 12000 1 CAP PER TUBE PRN (11:09)
[2018-03-09] MEDS ORDERED: Sodium Bicarbonate Tab 325 MG TAB PER TUBE PRN (11:10)
--- NOTE | 2018-03-09 11:16 | PRG ---
DATE OF SERVICE: 03/09/2018 SERVICE: Pulmonary Medicine. INTERVAL HISTORY: The patient is doing fine from a respiratory standpoint. She is on dialysis this morning and tolerating it fairly well. They have an aggressive goal. That being said, if she gives fluid, they are going to take it. Neurologically, there has been a significant interval change. The re were no events overnight. PHYSICAL EXAMINATION: VITAL SIGNS: Afebrile, pulse 80, blood pressure 136/34, respirations 18, saturation 100% on 27% FiO2 . GENERAL: Patient is intubated. She is under no influence of sedation. HEENT: Normocephalic, atraumatic. Sclerae are white, conjunctivae pink. Oral mucosa is moist witho ut lesions. LUNGS: Decent air entry. There is no prolonged expiratory phase present. No wheezing, rhonchi, or crackles are evident. HEART: Normal rate, regular. ABDOMEN: Soft, nontender, and nondistended. Bowel sounds are positive. MUSCULOSKELETAL: No cyanosis or clubbing. There is no pitting in the unilateral lower extremities. NEUROLOGIC: She remains diffusely encephalopathic. She does withdraw from noxious stimuli in all 3 extremities, and opens her eyes, but she does not attend. She is not following any commands. LABORATORY DATA: WBC 33, hemoglobin 9.6, platelets 139,000 and improving. INR 3.5. Creatinine 2.81 and down trending. Basic metabolic profile is otherwise unremarkable. AST and ALT are down trendin g, alkaline phosphatase is actually trending upward. Ammonia level was 75. IMAGING DATA: Chest x-ray demonstrates left-sided thoracostomy drain with no evidence of pneumothora x. ASSESSMENT: 1. Acute hypoxic respiratory failure. 2. Tension pneumothorax, status post thoracostomy tube placement. 3. Septic shock. 4. Gross peritonitis. 5. Small-bowel obstruction, status post laparotomy and extensive lysis of adhesions. 6. Shock liver, improving. 7. Metabolic encephalopathy. 8. Multisystem organ dysfunction. 9. Coagulopathy secondary to liver injury. DISCUSSION, AND PLAN: We will once again give the patient laboratory holiday tomorrow morning. She is starting to have a little output from the ostomy. I think it would be reasonable to challenge her gut. I will leave that to surgery's discretion. We will continue supportive measures for the time being. If she fails to make neurologic recovery over the next 48 hours, transitioning over to comfor t care may be appropriate. Multiple adjustments have been made to the ventilator once again. CRITICAL CARE TIME: 30 minutes.
--- NOTE | 2018-03-09 11:57 | PRG ---
DATE OF SERVICE: 03/09/2018 RENAL MEDICINE SUBJECTIVE: Ms. Castro is a 67-year-old white female being [facility]. She was admitted for small-bowel obstruction. She underwent exploratory la parotomy with small bowel resection. Postop course was marred by hemodynamic instability as well as development of left-sided pneumothorax. This morning, she is a little more awake. She is currently undergoing at the dialysis and they are supervising her dialysis. Attempting to remove 3 liters of f luid removal as tolerated. No acute events noted from last night. PHYSICAL EXAMINATION: VITAL SIGNS: Blood pressure is noted at 136/34 with heart rate of 80, respiratory rate 18, pulse ox 100%. GENERAL: Arousable, intubated and ventilator support. SKIN: Adequate turgor. HEENT: Slightly pale conjunctivae, anicteric sclerae. NECK: No neck mass, no carotid bruits, no JVD. CHEST: No deformities. LUNGS: Decreased breath sounds. HEART: Normal sinus rhythm. No murmurs, no gallops, no rubs. CHEST: Positive for left chest tube. ABDOMEN: Globular, soft. Multiple ostomies. EXTREMITIES: No edema, no deformities. MEDICATIONS: Medications of 03/09/2018 was reviewed. LABORATORY DATA: Laboratories of 03/09/2018; white count 32.9, hemoglobin 9.6. Sodium 139, potassiu m 4.6, chloride 99, carbon dioxide 25, BUN 34, creatinine 2.81, glucose 100, AST 753, ALT 1790, album in 2.0. ASSESSMENT AND PLAN: 1. End-stage renal disease, stable. We will continue current maintenance hemodialysis of Sunday, , and Sunday. Again, fluid removal only as tolerated. 2. Anemia - currently patient on weekly Epogen at 10,000 units daily. 3. Small-bowel obstruction - patient is status post exploratory laparotomy with lysis of adhesions a s well as resection of small bowel, stable. Surgery is following. 4. Fever/sepsis syndrome - currently, patient is on antifungal and IV antibiotics. Continue support dione care.
--- NOTE | 2018-03-09 15:58 | PDOC.PN ---
- Subjective Encounter Start Date: 03/09/18 Encounter Start Time: 12:20 Pt seen for followup re: sepsis. Intubated, unable to complete ROS. Opens eyes to voice but not following commands. - Objective Resuscitation Status: Resuscitation Status FULL:Full Resuscitation MAR Reviewed: Yes Vital Signs & Weight: Vital Signs (12 hours) Temp Pulse Resp BP Pulse Ox 03/09/18 15:32 69 117/33 L 03/09/18 08:24 76 18 100 03/09/18 08:00 98.8 F 80 18 100 03/09/18 07:55 76 116/32 L 100 03/09/18 06:00 12 03/09/18 04:00 98.4 F 75 12 85/29 L Weight Admit Weight 145 lb 8.081 oz Weight 180 lb 12.465 oz Most Recent Monitor Data Heart Rate from ECG 80 NIBP 116/32 NIBP BP-Mean 47 Respiration from ECG 17 SpO2 99 I&O: 03/08/18 03/09/18 03/10/18 06:59 06:59 06:59 Intake Total 1355 1080.9 Output Total 837 795 0 Balance 518 285.9 0 Result Diagrams: 03/09/18 03:35 03/09/18 03:35 Additional Labs: Accuchecks 03/09/18 03/08/18 03/08/18 03:34 23:32 16:12 POC Glucose 103 97 79 EKG Reviewed by me: Yes (Tele: NSR) Phys Exam - Physical Examination Intubated HEENT: moist MMs Respiratory: no wheezing, no rales, no rhonchi, clear to auscultation bilateral L chest tube Cardiovascular: RRR, no rub S1, s2 Gastrointestinal: soft, non-tender, positive bowel sounds ostomies No spontaneous limb movements in four extremities Deviation from normal: Unable to assess mood, affect or orientation to person, place or time Dx/Plan (1) Septic shock Code(s): A41.9 - SEPSIS, UNSPECIFIED ORGANISM; R65.21 - SEVERE SEPSIS WITH SEPTIC SHOCK Status: Acute Comment: continue IV antibiotics, follow cultures (2) Abnormal LFTs Code(s): R94.5 - ABNORMAL RESULTS OF LIVER FUNCTION STUDIES Status: Acute Comment: Improving (3) Acute respiratory failure with hypoxia Code(s): J96.01 - ACUTE RESPIRATORY FAILURE WITH HYPOXIA Status: Acute Comment: Intubated and mechanically ventilated in CCU (4) Tension pneumothorax Code(s): J93.0 - SPONTANEOUS TENSION PNEUMOTHORAX Status: Acute Comment: s/ p L chest tube (5) Bowel obstruction Code(s): K56.609 - UNSP INTESTNL OBST, UNSP TO PARTIAL VERSUS COMPLETE OBST Status: Acute Qualifiers: Intestinal obstruction type: unspecified Intestinal obstruction extent: unspecified extent Qualified Code(s): K56.609 - Unspecified intestinal obstruction, unspecified as to partial versus complete obstruction Comment: s/p surgery (6) ESRD (end stage renal disease) on dialysis Code(s): N18.6 - END STAGE RENAL DISEASE; Z99.2 - DEPENDENCE ON RENAL DIALYSIS Status: Chronic Comment: maintainance dialysis per nephrology (7) HLD (hyperlipidemia) Code(s): E78.5 - HYPERLIPIDEMIA, UNSPECIFIED Status: Chronic Qualifiers: Hyperlipidemia type: unspecified Qualified Code(s): E78.5 - Hyperlipidemia , unspecified (8) HTN (hypertension) Code(s): I10 - ESSENTIAL (PRIMARY) HYPERTENSION Status: Chronic Qualifiers: Hypertension type: essential hypertension Qualified Code(s): I10 - Essential (primary) hypertension (9) Metabolic acidosis Code(s): E87.2 - ACIDOSIS Status: Resolved - Plan * . Review of Systems - Medications/Allergies Allergies/Adverse Reactions: Allergies Allergy/AdvReac Type Severity Reaction Status Date / Time Sulfa (Sulfonamide Allergy Verified 02/27/18 01:35 Antibiotics) Medications: Current Medications Acetaminophen (Tylenol) 650 mg PO Q4H PRN PRN Reason: Headache/Fever or Pain Last Admin: 03/08/18 17:30 Dose: 650 mg Albuterol/Ipratropium (Duoneb) 3 ml NEB [id number] PRN PRN Reason: SOB &/or Wheezing Last Admin: 03/09/18 08:24 Dose: 3 ml Lipase/Protease/Amylase ([place] [id number]) 1 cap PER TUBE ASDIR PRN PRN Reason: TUBE OCCLUSION TX Docusate Sodium (Colace) 100 mg PO BID [facility] Last Admin: 03/09/18 10:36 Dose: 100 mg Epoetin Jimbo (Procrit) 10,000 units SC Q7D JOSE Last Admin: 03/04/18 10:29 Dose: 10,000 units Famotidine (Pepcid) 20 mg SLOW IVP DAILY [facility] Last Admin: 03/09/18 10:36 Dose: 20 mg Hydrocortisone Sodium Succinate (Solu-Cortef) 50 mg IVP 0300,0900,1500,2100 [facility] Last Admin: 03/09/18 15:18 Dose: 50 mg Piperacillin Sod/Tazobactam (Sod 2.25 gm/ Sodium Chloride) 100 mls @ 200 mls/ hr IVPB Q8HR [facility] Last Admin: 03/09/18 15:23 Dose: 100 mls Norepinephrine Bitartrate 16 (mg/ Sodium Chloride) 266 mls @ 0 mls/hr IVPB INF PRN; Protocol; Titrate PRN Reason: Blood Pressure Last Admin: 03/08/18 18:32 Dose: 266 mls Micafungin Sodium 100 mg/ (Sodium Chloride) 100 mls @ 100 mls/hr IVPB Q24HR [facility] Last Admin: 03/09/18 03:37 Dose: 100 mls Sodium Chloride (Normal Saline 0.9%) 1,000 mls @ 0 mls/hr IV .Q0M [facility] PRN Reason: TKO Magnesium Hydroxide (Milk Of Magnesium) 30 ml PO BID PRN PRN Reason: Constipation Last Admin: 02/27/18 18:38 Dose: 30 ml Mineral Oil/White Petrolatum (Lacri-Lube Ointment) 0 gm EA EYE PRN PRN PRN Reason: Dry Eyes Discontinue Previous Narcotic Pain Medications And Benzodiazepines 1 each FS .ONE [facility] Stop: 04/04/18 02:43 Ondansetron HCl (Zofran) 4 mg IVP Q6H PRN PRN Reason: Nausea/Vomiting Last Admin: 03/02/18 10:57 Dose: 4 mg Simethicone (Mylicon Chewable) 80 mg PO PCHS PRN PRN Reason: Gas Pain Last Admin: 02/27/18 21:04 Dose: 80 mg Sodium Bicarbonate (Bicarbonate, Sodium) 650 mg PER TUBE ASDIR PRN PRN Reason: TUBE OCCLUSION TX Sodium Chloride (Flush - Normal Saline) 10 ml IVF PRN PRN PRN Reason: Saline Flush Last Admin: 03/03/18 09:01 Dose: 10 ml
[2018-03-09 18:30] LABS: Glucose Accucheck Confirmation 60 mg/dl (80-115)
[2018-03-09] MEDS: Dextrose 50% Abboject 50 ML SYRINGE ONE (18:57)
[2018-03-09] MEDS ORDERED: Dextrose 50% Abboject 50 ML SYRINGE SLOW IVP SCH (20:00)
[2018-03-09] MEDS: Norepinephrine 16 MG in Sodium Chloride 0.9% 250 ML 250 ML IVPB PRN (20:06)
--- NOTE | 2018-03-09 21:46 | PRG ---
DATE OF SERVICE: 03/09/2018 SUBJECTIVE: Ms. Castro is doing well today. She is on low dose pressors increased with dialysis. LUNGS: Clear to auscultation. CARDIAC: Regular rate and rhythm without murmur or gallop. ABDOMEN: Soft. Bowel sounds present, stool in her colostomy bag. Wound VAC was present. Drainage is serosanguineous. LABORATORY DATA: White count 32.9, hemoglobin 9.6. Basic metabolic profile normal for renal failure status. PT 37. INR 3.5. ASSESSMENT: 1. Pneumothorax, continue chest tube for now. 2. Shock liver with coagulopathy, elevated transaminases and elevated bilirubin. Continue supportiv e care. 3. Left subclavian vein, large bore central line in the subclavian artery, leave until coagulopathy improves. 4. Need of IV access. PLAN: 1. Placement of IV access, placement revealed ultrasound evaluation of both internal jugular veins a re revealed them to be absent. A right femoral vein triple lumen catheter was placed. 2. Enteral feedings initiated.
--- NOTE | 2018-03-10 03:00 | OP ---
PREOPERATIVE DIAGNOSES: Left subclavian vein, central line, large bore in the subclavian artery; malathi al failure status, end-stage renal disease status. PREOPERATIVE DIAGNOSES: Left subclavian vein, central line, large bore in the subclavian artery; malathi al failure status, end-stage renal disease status with occluded both internal jugular veins. SURGEON: Carlos Duckworth M.D. ANESTHESIA: 1% Xylocaine. PROCEDURE IN DETAIL: The patient was taken to the operating room while on the ventilator, both sides of the neck were evaluated by ultrasound. The internal jugular vein was occluded. Right groin prep ared with ChloraPrep, draped in routine fashion. Local anesthetic with 1% Xylocaine infiltrated into skin and subcutaneous tissue. Trocar catheter cannulated the femoral vein. J-wire threaded. Troca r catheter was removed. Skin incised and enlarged sharply. Dilator was placed and removed. Distal port of the triple lumen catheter placed with J-wire into the femoral vein. Catheter was secured wit h 2 interrupted sutures of 3-0 silk. Sterile dressing applied. Each port aspirated blood and flushe d with heparinized saline solution. The patient tolerated the procedure well.
[2018-03-10] MEDS: Acetaminophen 325 MG TAB PO PRN (03:31)
[2018-03-10] MEDS ORDERED: Sodium Chloride 0.9% 1,000 ML IV SCH (04:15)
[2018-03-10] MEDS ORDERED: Dextrose 50% Abboject 50 ML SYRINGE ONE ×2 (04:16→09:28)
[2018-03-10] MEDS: Hydrocortisone Sod Succ/PF 100 mg/2 ml Vial IVP SCH ×4 (04:18→20:46)
[2018-03-10] MEDS: Micafungin 100 MG in Sodium Chloride 0.9% 100 ML IVPB SCH (04:24)
[2018-03-10] MEDS ORDERED: HOLD VANCOMYCIN FOR LEVEL >20 FS SCH (04:30)
[2018-03-10] MEDS ORDERED: Vancomycin HCl 1 GM in Premix Bag 1 BAG IVPB SCH (04:30)
[2018-03-10] MEDS ORDERED: Vancomycin HCl 500 MG in Sodium Chloride 0.9% 100 ML IVPB SCH (04:30)
[2018-03-10] MEDS ORDERED: Vancomycin HCl 750 MG in Sodium Chloride 0.9% 250 ML 250 ML IVPB SCH (04:30)
[2018-03-10] MEDS ORDERED: Vancomycin HCl 1.25 GM in Sodium Chloride 0.9% 250 ML 250 ML IVPB SCH (04:30)
[2018-03-10 04:47] LABS: CO2 Tension 16.2 mmHg (35.0-45.0); pH, Arterial 7.48 (7.35-7.45)
[2018-03-10 04:48] LABS: Actual Bicarbonate (HCO3a) 11.9 mEq/L (22-28); Base Excess (BEa) -9.8 mEq/L (-2.0 to +3.0); O2 Tension (PaO2) 60.9 mmHg (> 80.0)
[2018-03-10 04:49] LABS: Calcium, Ionized 1.2 mmol/L (1.12-1.30); Puncture Site ALINE
[2018-03-10] MEDS: Piperacillin/Tazobactam 2.25 GM in Sodium Chloride 0.9% 100 ML IVPB SCH ×3 (06:11→21:32)
[2018-03-10] MEDS: Famotidine/PF 20 mg/2ml Vial SLOW IVP SCH (08:58)
[2018-03-10] MEDS: Docusate 100 MG CAP PO SCH ×2 (08:58→20:24)
[2018-03-10 09:07] LABS: Band 8 % (5-11); Hemoglobin 9.6 g/dL (12.0-16.0); Lymphocytes 5 % (21-51); MDiff Complete? YES; Mean Corpuscular HGB CONC 32.5 g/dL (32.0-36.0); Mean Corpuscular Hemoglobin 30.8 pg (27.0-31.0); Mean Corpuscular Volume 94.8 fL (78.0-98.0); Mean Platelet Volume 8.5 fL (7.4-10.4); Monocytes 8 % (0-10); Neutrophil 79 % (42-75); Nucleated RBC 4 % (0); Platelet Count 172 thou/uL (130-400); Polychromasia SLIGHT = 2-3 cells (100X) (0-2/hpf); RBC Distribution Width 15.2 % (11.5-14.5); Red Blood Cell (RBC) Count 3.12 mill/uL (4.20-5.40); White Blood Cell (WBC) Count 37.9 thou/uL (4.8-10.8)
[2018-03-10 09:11] LABS: ALT (SGPT) 1278 U/L (8-55); AST (SGOT) 461 U/L (5-34); Albumin 1.8 g/dL (3.4-4.8); Alkaline Phosphatase 402 U/L (40-150); Anion Gap 28 mmol/L (10-20); BUN (Urea Nitrogen) 26 mg/dL (9.8-20.1); Bilirubin, Total 3.5 mg/dL (0.2-1.2); Calc. Creatinine Clearance 35 mL/min (70-130); Calcium 10.2 mg/dL (7.8-10.44); Carbon Dioxide 13 mmol/L (23-31); Chloride 102 mmol/L (98-107); Estimated GFR-MDRD 25; Globulin 2.1 g/dL (2.4-3.5); Potassium 4.5 mmol/L (3.5-5.1); Protein, Total 3.9 g/dL (6.0-8.3); Sodium 138 mmol/L (136-145)
[2018-03-10 09:20] LABS: Glucose 52 mg/dL (80-115)
--- NOTE | 2018-03-10 09:32 | RAD ---
SINGLE VIEW OF THE CHEST: COMPARISON: 03/09/18. HISTORY: Intubated patient with respiratory failure. FINDINGS: A single view of the chest shows an enlarged but stable cardiomediastinal silhouette. The lines and tubes are unchanged in position. A veil-like opacity in the left thorax likely represents a moderate left pleural effusion. IMPRESSION: Stable left pleural effusion. POS: [facility]
--- NOTE | 2018-03-10 09:41 | PRG ---
DATE OF SERVICE: 03/10/2018 SERVICE: Pulmonary Medicine. INTERVAL HISTORY: The patient got a femoral line yesterday. The subclavian line is still in place, but it is not going to be removed until her coagulopathy improves. There has been no interval change to her condition. Overnight, she had a marginal blood pressure that responded very easily to a smal l bolus of fluid. There has been no interval change to her condition. PHYSICAL EXAMINATION: VITAL SIGNS: Temperature 100.8, pulse 100, blood pressure 92/20, which is now improved to 132/38, re spirations 27, saturation 96% on room air. GENERAL: The patient is intubated under the influence of no sedation. HEENT: Normocephalic, atraumatic. Sclerae are white, conjunctivae pink. Oral and nasal mucosa is m oist without lesions. LUNGS: Decent air entry. Crackles are present. No rhonchi or wheezing are appreciated. There is n o prolonged expiratory phase. HEART: Normal rate, regular. ABDOMEN: Soft, nontender, nondistended. She no longer grimaces with palpation of the belly. There is no rebound or guarding appreciated. Bowel sounds are hypoactive. GENITOURINARY: Arreola catheter in place. NEUROLOGIC: She does not withdraw from noxious stimuli in all 4 extremities. With sternal rub, she grimaces. With trapezius squeeze, she grimaces. She will open her eyes spontaneously to sound. Marck t being said, she does not attend. Cranial reflexes are intact. LABORATORY DATA: PH 7.48, pCO2 16, pO2 61, corresponding to a saturation of 91%. This occurred on 2 1% FIO2, which has been bumped up to 31%. Blood sugar ranges from 58 up to 143. Blood cultures x2, C. diff, and stool assays are all unremarkable. IMAGING: Chest x-ray demonstrates left subclavian artery line is still in place. Low lung volumes a re present. There is an endotracheal tube, which is roughly 4 cm above the nishant and remains in goo d position. Enteric catheter courses below the level of the diaphragm, and into the stomach. There is increased opacification of the left hemithorax. ASSESSMENT: 1. Acute hypoxic respiratory failure. 2. Tension pneumothorax, status post thoracostomy tube with persistent small air leak. 3. Septic shock. 4. Gross peritonitis with recrudescence and sepsis profile. 5. Small-bowel obstruction, status post laparotomy, lysis of adhesions, and excision of small bowel. 6. Shock liver, improving. 7. Metabolic encephalopathy versus anoxic brain injury. 8. Coagulopathy secondary to liver injury. DISCUSSION AND PLAN: I will repeat laboratories tomorrow morning including a CBC, comprehensive meta bolic profile, INR, magnesium, and phosphorus. Neurology consultation will be placed. We will do a pugh culture and I will empirically add vancomycin because we are currently not covering gram positive cocci. CRITICAL CARE TIME: 30 minutes.
[2018-03-10] MEDS: Norepinephrine 16 MG in Sodium Chloride 0.9% 250 ML 250 ML IVPB PRN ×2 (10:42→17:41)
[2018-03-10 10:59] LABS: Fibrinogen 171 mg/dL (253-463); PTT 48.5 SEC (22.9-36.1)
[2018-03-10 11:00] LABS: Platelet Count 179 thou/uL (130-400); Prothrombin Time 94.1 SEC (12.0-14.7)
[2018-03-10] MEDS ORDERED: Albumin 25% 25 GM/100 ML BOT IVPB ONE (11:04)
[2018-03-10 11:07] LABS: D-Dimer Test 11.89 *mcg/mL (0.27-0.43)
[2018-03-10 11:20] LABS: INR-International Normal Ratio 11.1
[2018-03-10 11:31] LABS: FSP-Qualitative ABNORMAL (Normal); FSP-Semiquantitative >=20 & <40 mcg/mL (Less than 5)
[2018-03-10] MEDS ORDERED: Phytonadione 10 MG/ML AMP SC SCH (11:45)
[2018-03-10] MEDS ORDERED: Dextrose 5 % And 0.9 % NaCl 1,000 ML IV SCH (12:30)
[2018-03-10] MEDS: Albumin 25% 25 GM/100 ML BOT IVPB SCH ×2 (12:39→17:07)
--- NOTE | 2018-03-10 13:20 | PRG ---
DATE OF SERVICE: 03/10/2018 SUBJECTIVE: Ms. Castro is a 67-year-old white female being followed by the Renal Service for her m [facility] hemodialysis. The patient is noted to be hypotensive today. She is on maximal pressor corbett pport Volume depletion was given by the electrician's helper. We will give her another 250 mL bolus right no w. No indication for any dialytic intervention. Her hospitalization has been marred by hemodynamic instability and development of a left-sided pneumothorax. The patient's prognosis remains guarded at the present time. OBJECTIVE: VITAL SIGNS: Blood pressure is 90/43, heart rate 113, respiratory rate 18, pulse ox 94%. GENERAL: She is sedated, intubated on ventilator support. SKIN: Adequate turgor. HEENT: She has slightly pale conjunctivae, anicteric sclerae. NECK: No neck mass, no carotid bruits, no JVD. CHEST: No deformities. LUNGS: Decreased breath sounds. HEART: Normal sinus rhythm. No murmur, no gallops, no rubs. ABDOMEN: Globular, soft. Positive for multiple ostomies. EXTREMITIES: No edema. MEDICATIONS: Of 03/10/2018, was reviewed. LABORATORY DATA: Of 03/10/2018, showed white count of 7.9, hemoglobin 9.6. Sodium 138, potassium 4. 5, chloride 102, carbon dioxide 13, BUN 26, creatinine 1.99, AST 461, ALT 1278, albumin is 1.8. ASSESSMENT AND PLAN: 1. Hypotension, p.r.n. IV volume repletion with normal saline. Consider starting this patient salt poor albumin 25 grams IV q.6 hours. The patient may be having sepsis syndrome, on IV antibiotics as well as on antifungal. 2. End-stage renal disease, stable. No indication for any dialytic intervention. Continue supporti ve care. Case discussed with the daughter. Overall, prognosis remains guarded with this patient.
[2018-03-10] MEDS ORDERED: EPINEPHrine 1 MG, Admixture Fee 1 EACH in Dextrose 5% in Water 250 ML IVPB SCH (13:30)
[2018-03-10 15:56] VITALS: BP 116/50
[2018-03-10 19:58] VITALS: TEMP 99.5
[2018-03-10] MEDS: Dextrose 50% Abboject 50 ML SYRINGE ONE (20:33)
[2018-03-10 21:10] LABS: Glucose Accucheck Confirmation 22 mg/dl (80-115)
--- NOTE | 2018-03-10 22:12 | PRG ---
DATE OF SERVICE: 03/10/2018 SUBJECTIVE: Ms. Castro is still intubated in the ICU. OBJECTIVE: VITAL SIGNS: 134/50s, respiratory rate 30, heart rate 110. LUNGS: Clear to auscultation. CARDIAC: Regular rate and rhythm without murmur or gallop. ABDOMEN: Soft, stool in her ostomy, on tube feedings. EXTREMITIES: Unremarkable. LABORATORY DATA: White count is 37,000. Hemoglobin 9.6. Basic metabolic profile unremarkable consi stent with end-stage renal disease. ASSESSMENT AND PLAN: 1. Respiratory failure on the ventilator. 2. Tension pneumothorax, chest tube. 3. Left subclavian artery line and need to be removed once her coagulopathy improved. 4. Shock liver. 5. Recovery of bowel function on tube feedings after extensive laparotomy, adhesiolysis. 6. Metabolic encephalopathy. Today his PT is 94. INR 11, direct bilirubin down to 3.5. AST and ALT elevated 46, 112, 78.
--- NOTE | 2018-03-10 23:32 | CON ---
DATE OF CONSULTATION: 03/10/2018 REFERRING PHYSICIAN: Dr. Chong Qureshi. REASON FOR CONSULTATION: Decreased level of neurological function. HISTORY OF PRESENT ILLNESS: Ms. Castro is a 67-year-old, female, who has been consulted for evaluation of a decreased level of neurological function. History is obtained from patient's med [facility] chart as well as the nurse assisting of the patient. Apparently, the patient had presented with the nausea and vomiting. She was found to have a small-bowel obstruction. She had undergone conser vative therapy without any improvement. Thus, she had undergone exploratory laparotomy. Following t he procedure, she has not been responsive to any verbal or noxious stimuli. She has been off sedatio n for at least 24 hours; however, there is no improvement in her neurological function. For this heri son, I am being asked to further evaluate this patient. According to the nurse, she has liver failur e, renal failure for which she is undergoing dialysis. She is also noted to be in septic shock and r equiring pressor support. She has missed out on Levophed, has been on vasopressin, and she is about to be started on epinephrine. According to the nurse, there has not been any cough or gag reflex pre sent. She is not responsive to any verbal or noxious stimuli. PAST MEDICAL HISTORY, PAST SURGICAL HISTORY, FAMILY HISTORY, SOCIAL HISTORY, CURRENT MEDICATIONS AND ALLERGIES: Could not be obtained. They are reviewed from patient's dictated H&P note. REVIEW OF SYSTEMS: Unable to perform. PHYSICAL EXAMINATION: VITAL SIGNS: Blood pressure of 73/64, pulse of 107, temperature of 97.8 with a T-max of 100.8, respi rations of 28, O2 sats of 97% on mechanical ventilation. GENERAL: Intubated, female, in no apparent distress. RESPIRATORY: Clear to auscultation bilaterally. CARDIOVASCULAR: Regular rate and rhythm. NEUROLOGIC: Mental status: The patient is intubated, nonsedated, nonresponsive to any verbal or nox ious stimuli. Cranial nerves: Pupils are 3 mm and reactive bilaterally. She has no corneal reflex; however, to nasal stimulation, she does have bilateral corneal reflex present. She has no cough or gag reflex present. Motor exam showed flaccid bilateral upper extremities. There is no response to nail bed pressure or sternal rub in both upper extremities or right lower extremity. She has a left AKA. LABORATORY DATA: Labs are reviewed, which include a CBC, CMP, which is significant for WBC of 37.9, hemoglobin 9.6, hematocrit 29.5, platelet count of 172. BUN of 26, creatinine of 1.99, total bilirub in of 3.5, AST of 461, ALT of 1278, alkaline phosphatase of 402, otherwise unremarkable. IMAGING STUDIES: None. IMPRESSION: 1. Small bowel obstructions post exploratory laparotomy. 2. Multiorgan failure. 3. Septic shock. 4. Decreased level of neurological function, likely toxic metabolic encephalopathy. ASSESSMENT AND PLAN: Ms. Castro is a 67-year-old, female, who has a small-bowel obstruct ion and has undergone exploratory laparotomy. Post-surgery, there has been a sudden decline in her n eurological function. This is likely secondary to multiorgan failure. I had a long discussion with the patient's daughter and explained that the prognosis remains poor due to underlying multiorgan marii lure as well as for responsiveness to stimuli over the past 24-48 hours. I have explained to her wilfrido t the brain does not seem to be responding well until all the organs functions have been improving. Unfortunately due to her multiple IV pressor supports, she is not going to be able to go for the MRI. If visible, a CT scan of the head can be obtained to rule out any acute intracranial abnormality. Continue supportive care. Continue current medical management. Thank you for consultation.
--- NOTE | 2018-03-10 23:41 | PDOC.PN ---
- Subjective Encounter Start Date: 03/10/18 Encounter Start Time: 19:00 - Objective Resuscitation Status: Resuscitation Status DNR:Do Not Resuscitate Vital Signs & Weight: Vital Signs (12 hours) Temp Pulse Resp BP Pulse Ox 03/10/18 20:00 29 H 03/10/18 19:22 98 98 03/10/18 19:00 99.5 F 03/10/18 18:00 27 H 03/10/18 16:00 98.2 F 30 H 03/10/18 15:55 107 H 116/50 L 03/10/18 14:00 30 H 03/10/18 12:00 98.7 F 30 H 03/10/18 11:48 119 H 84/44 L Weight Admit Weight 145 lb 8.081 oz Weight 183 lb 6.793 oz Most Recent Monitor Data Heart Rate from ECG 65 NIBP 75/31 NIBP BP-Mean 47 Respiration from ECG 12 SpO2 90 I&O: 03/09/18 03/10/18 03/11/18 06:59 06:59 06:59 Intake Total 1080.9 2518 2180.3 Output Total 856 448 4978 Balance 285.9 2008 900.3 Result Diagrams: 03/10/18 10:39 03/10/18 04:15 Additional Labs: Accuchecks 03/10/18 03/10/18 03/10/18 21:28 20:31 18:31 POC Glucose 130 H 35 L* 68 L 03/10/18 03/10/18 03/10/18 11:15 09:35 05:24 POC Glucose 93 62 L 113 H 03/10/18 03/10/18 04:17 01:58 POC Glucose 58 L* 82 Dx/Plan - Plan * . Review of Systems - Medications/Allergies Allergies/Adverse Reactions: Allergies Allergy/AdvReac Type Severity Reaction Status Date / Time Sulfa (Sulfonamide Allergy Verified 02/27/18 01:35 Antibiotics) Medications: Current Medications Acetaminophen (Tylenol) 650 mg PO Q4H PRN PRN Reason: Headache/Fever or Pain Last Admin: 03/10/18 03:31 Dose: 650 mg Albumin Human (Albumin 25%) 25 gm IVPB Q6HR JOSE Stop: 03/13/18 06:01 Last Admin: 03/10/18 17:07 Dose: 25 gm Albuterol/Ipratropium (Duoneb) 3 ml NEB [id number] PRN PRN Reason: SOB &/or Wheezing Last Admin: 03/09/18 08:24 Dose: 3 ml Lipase/Protease/Amylase (Gerald Godinez [id number]) 1 cap PER TUBE ASDIR PRN PRN Reason: TUBE OCCLUSION [place] Docusate Sodium (Colace) 100 mg PO BID [facility] Last Admin: 03/10/18 20:24 Dose: Not Given Epoetin Jimbo (Procrit) 10,000 units SC Q7D [facility] Last Admin: 03/04/18 10:29 Dose: 10,000 units Famotidine (Pepcid) 20 mg SLOW IVP DAILY [facility] Last Admin: 03/10/18 08:58 Dose: 20 mg Hydrocortisone Sodium Succinate (Solu-Cortef) 50 mg IVP 0300,0900,1500,2100 [facility] Last Admin: 03/10/18 20:46 Dose: 50 mg Piperacillin Sod/Tazobactam (Sod 2.25 gm/ Sodium Chloride) 100 mls @ 200 mls/ hr IVPB Q8HR [facility] Last Admin: 03/10/18 21:32 Dose: 100 mls Norepinephrine Bitartrate 16 (mg/ Sodium Chloride) 266 mls @ 0 mls/hr IVPB INF PRN; Protocol; Titrate PRN Reason: Blood Pressure Last Admin: 03/10/18 17:41 Dose: 266 mls Micafungin Sodium 100 mg/ (Sodium Chloride) 100 mls @ 100 mls/hr IVPB Q24HR [facility] Last Admin: 03/10/18 04:24 Dose: 100 mls Vancomycin HCl 1.25 gm/ Sodium (Chloride) 250 mls @ 166.667 mls/hr IVPB WILLCALL JOSE Vancomycin HCl 1 gm/ Device 200 mls @ 200 mls/hr IVPB WILLCALL JOSE Vancomycin HCl 750 mg/ Sodium (Chloride) 250 mls @ 250 mls/hr IVPB WILLCALL JOSE Vancomycin HCl 500 mg/ Sodium (Chloride) 100 mls @ 100 mls/hr IVPB WILLCALL JOSE Vasopressin 40 unit/ Sodium (Chloride) 102 mls @ 0 mls/hr IV INF [facility]; As Directed PRN Reason: Protocol Last Admin: 03/10/18 09:15 Dose: 102 mls Dextrose/Sodium Chloride (D5 0.9% Ns) 1,000 mls @ 50 mls/hr IV .Q20H JOSE Last Admin: 03/10/18 12:50 Dose: 1,000 mls Epinephrine 1 mg/Miscellaneous Medication 1 each/ Dextrose/Water 251 mls @ 0 mls/hr IVPB INF JOSE; Titrate PRN Reason: Protocol Last Admin: 03/10/18 17:22 Dose: 251 mls Phenylephrine HCl 10 mg/ (Sodium Chloride) 251 mls @ 0 mls/hr IVPB INF PRN; Protocol; As Directed PRN Reason: TO KEEP MAP > 60 Magnesium Hydroxide (Milk Of Magnesium) 30 ml PO BID PRN PRN Reason: Constipation Last Admin: 02/27/18 18:38 Dose: 30 ml Mineral Oil/White Petrolatum (Lacri-Lube Ointment) 0 gm EA EYE PRN PRN PRN Reason: Dry Eyes Miscellaneous Medication (Pharmacy To Dose) 0 each IVPB PRN PRN PRN Reason: PHARMACY TO DOSE VANCOMYCIN Discontinue Previous Narcotic Pain Medications And Benzodiazepines 1 each FS .ONE [facility] Stop: 04/04/18 02:43 Hold Vancomycin For (Level >20) 0 each FS .AT DIALYSIS [facility] Ondansetron HCl (Zofran) 4 mg IVP Q6H PRN PRN Reason: Nausea/Vomiting Last Admin: 03/02/18 10:57 Dose: 4 mg Simethicone (Mylicon Chewable) 80 mg PO PCHS PRN PRN Reason: Gas Pain Last Admin: 02/27/18 21:04 Dose: 80 mg Sodium Bicarbonate (Bicarbonate, Sodium) 650 mg PER TUBE ASDIR PRN PRN Reason: TUBE OCCLUSION TX Sodium Chloride (Flush - Normal Saline) 10 ml IVF PRN PRN PRN Reason: Saline Flush Last Admin: 03/03/18 09:01 Dose: 10 ml
--- NOTE | 2018-03-13 18:38 | DS ---
DATE OF : 03/10/2018 at 2224 hours. DATE OF ADMISSION: 02/27/2018 DIAGNOSTIC TESTS: 1. KUB on admission showed gas filled loops of mildly dilated small bowel in the mid abdomen. 2. KUB on 02/28/2018 showed small bowel dilatation, ileus versus distal small-bowel obstruction must be considered. 3. Abdominal ultrasound on 03/08/2018 showed trace ascites. 4. On 03/05/2018, patient underwent exploratory laparotomy with extensive lysis of adhesions and ext ensive small bowel resection by Dr. [place] 5. On 03/04/2018, the patient underwent left tube thoracostomy by Dr. Duckworth for tension pneumothora x. 6. On 03/07/2018, the patient underwent left-sided thoracostomy tube placement under emergent condit ion. 7. On 03/09/2018, the patient underwent central line placement. 8. Echocardiogram on 03/10/2018 showed left ventricular ejection fraction greater than 60%. 9. Creatinine on admission was 9.14. BRIEF HOSPITAL COURSE: The patient was a 67-year-old female with end-stage renal disease on hemodial ysis, history of nephrectomy, currently with colostomy and urostomy, presented to the hospital with s evere nausea and vomiting along with suprapubic abdominal pain. Please refer to the history and phys ical dated 02/26/[address] Higgins for further details. The patient was admitted to the hospital with a diagnosis of hyperkalemia along with volume overload. Potassium on admission was 7.1, serum with serum bicarbonate of 24. She underwent emergent hemodia lysis. She was also seen by General Surgery for abdominal discomfort, nausea, vomiting, and suspecte d small-bowel obstruction versus ileus. The patient failed conservative management and required surg ical intervention as discussed above. She underwent dialysis per Nephrology. Code blue was called o n 03/05/2018 due to pulseless electrical activity. Please note that patient required several pressor s prior to this including dopamine, epinephrine, vasopressin as well as Levophed. She later develope d multiorgan failure. She was then made DNR by the family. She on 03/10/2018 at 2224 ho urs. The family was at the bedside. FINAL DIAGNOSES: 1. Small-bowel obstruction status post exploratory laparotomy. 2. Multiorgan failure. 3. Septic shock. 4. Toxic metabolic encephalopathy. 5. Acute hypoxic respiratory failure. 6. Tension pneumothorax, status post thoracoscopic to 7. Peritonitis. 8. Shock liver. 9. Coagulopathy secondary to liver failure. 10. Liver injury. 11. Hyperkalemia on admission. 12. Obesity with a BMI of 34.7. 13. Lactic acidosis. 14. Hypokalemia of 3.2 during this hospital stay. 15. Elevated troponins, probably secondary to demand ischemia. 16. Moderate protein calorie malnutrition.
== END 2018-03-10 22:24 | disposition expired | DRG 853 ==
LOC: ERS 19:56 → 2NO 22:15 → T4-B 02-28 13:41 → CCU 03-04 18:36
PROVIDERS: ADMIT Internal Medicine; ATTEND Internal Medicine
PROC: 5A1D70Z Performance of Urinary Filtration, Intermittent, Less than 6 Hours Per Day (ICD-10-PCS; 2018-02-26)
PROC: 5A1D70Z Performance of Urinary Filtration, Intermittent, Less than 6 Hours Per Day (ICD-10-PCS; 2018-02-28)
PROC: 3E0436Z Introduction of Nutritional Substance into Central Vein, Percutaneous Approach (ICD-10-PCS; 2018-03-01)
PROC: 5A1D70Z Performance of Urinary Filtration, Intermittent, Less than 6 Hours Per Day (ICD-10-PCS; 2018-03-02)
PROC: 0DB80ZZ Excision of Small Intestine, Open Approach (ICD-10-PCS; principal; 2018-03-04)
PROC: 0DNW0ZZ Release Peritoneum, Open Approach (ICD-10-PCS; 2018-03-04)
PROC: 0DN80ZZ Release Small Intestine, Open Approach (ICD-10-PCS; 2018-03-04)
PROC: 05H633Z Insertion of Infusion Device into Left Subclavian Vein, Percutaneous Approach (ICD-10-PCS; 2018-03-04)
PROC: 5A1955Z Respiratory Ventilation, Greater than 96 Consecutive Hours (ICD-10-PCS; 2018-03-04)
PROC: 5A1D70Z Performance of Urinary Filtration, Intermittent, Less than 6 Hours Per Day (ICD-10-PCS; 2018-03-05)
PROC: 5A12012 Performance of Cardiac Output, Single, Manual (ICD-10-PCS; 2018-03-05)
PROC: 0W9B00Z Drainage of Left Pleural Cavity with Drainage Device, Open Approach (ICD-10-PCS; 2018-03-06)
PROC: 0W9B30Z Drainage of Left Pleural Cavity with Drainage Device, Percutaneous Approach (ICD-10-PCS; 2018-03-07)
PROC: 5A1D70Z Performance of Urinary Filtration, Intermittent, Less than 6 Hours Per Day (ICD-10-PCS; 2018-03-07)
PROC: 5A1D70Z Performance of Urinary Filtration, Intermittent, Less than 6 Hours Per Day (ICD-10-PCS; 2018-03-09)
PROC: 05H633Z Insertion of Infusion Device into Left Subclavian Vein, Percutaneous Approach (ICD-10-PCS; 2018-03-09)
DX: A41.9 Sepsis, unspecified organism (principal); N18.6 End stage renal disease; J96.01 Acute respiratory failure with hypoxia; J93.0 Spontaneous tension pneumothorax; G92 Toxic encephalopathy; R65.21 Severe sepsis with septic shock; K65.9 Peritonitis, unspecified; K72.00 Acute and subacute hepatic failure without coma; K56.50 Intestinal adhesions [bands], unspecified as to partial versus complete obstruction; Z66 Do not resuscitate; Z51.5 Encounter for palliative care; I12.0 Hypertensive chronic kidney disease with stage 5 chronic kidney disease or end stage renal disease; D68.8 Other specified coagulation defects; I24.8 Other forms of acute ischemic heart disease; E87.2 Acidosis; E44.0 Moderate protein-calorie malnutrition; E87.5 Hyperkalemia; E86.0 Dehydration; E03.9 Hypothyroidism, unspecified; I46.9 Cardiac arrest, cause unspecified; E16.2 Hypoglycemia, unspecified; E66.9 Obesity, unspecified; Z68.34 Body mass index [BMI] 34.0-34.9, adult; E87.6 Hypokalemia; Z99.3 Dependence on wheelchair; Z99.2 Dependence on renal dialysis; Z85.41 Personal history of malignant neoplasm of cervix uteri; Z88.2 Allergy status to sulfonamides; Z79.899 Other long term (current) drug therapy; Z89.612 Acquired absence of left leg above knee; Z93.3 Colostomy status; Z93.6 Other artificial openings of urinary tract status; Z90.5 Acquired absence of kidney
CPT/HCPCS: 36415; 36416; 36430; 71045; 74018; 74019; 74022; 74250; 76705; 80048; 80053; 80069; 80076; 80202; 81003; 81015; 82140; 82553; 82805; 83605; 83735; 84100; 84484; 85007; 85025; 85027; 85049; 85300; 85362; 85379; 85384; 85610; 85730; 86850; 86900; 86901; 87040; 87045; 87046; 87070; 87077; 87086; 87186; 87205; 87324; 87340; 87449; 87899; 88302; 88307; 89220; 90935; 93005; 93010; 93306; 94002; 94003; 94640; 96374; 96375; A4216; G0257; J0171; J0694; J1250; J1644; J1720; J1815; J2001; J2248; J2250; J2270; J2370; J2405; J2543; J2704; J3010; J3370; J3430; J3475; J3480; J7050; J7070; J7620; P9016; P9047; P9059; Q4081; S0028